=== PATIENT | female | born 1955 | race Caucasian/White ===

== ENCOUNTER 2020-02-08 17:22 | Outpatient (REF) | payer MEDICARE, MEDICAID, SELFPAY ==
--- NOTE | 2020-02-08 | MM_ITS ---
EXAMINATION: MM SCREENING DIGITAL BREAST TOMOSYNTHESIS, BILATERAL CLINICAL INFORMATION: Screening. Asymptomatic. The lifetime risk of breast cancer based on the Tyrer-Cuzick Model is 4.2%. COMPARISON: Mammography: December 24, 2018 and studies dating back to December 04, 2014 TECHNIQUE: Digital breast tomosynthesis is performed in both the craniocaudal and mediolateral oblique views along with computer-aided detection (CAD). Synthesized 2D images are generated from the tomosynthesis. FINDINGS: The breasts are heterogeneously dense, which may obscure small masses (ACR BI-RADS breast composition Category c). There are no significant masses, abnormal calcifications, or other abnormalities. MM/MM tomosynthesis screening BI IMPRESSION: There are no significant changes from prior study. ASSESSMENT: BI-RADS 1: Negative RECOMMENDATION: Routine annual mammography screening. This patient's information was entered into a reminder system with a target due date for their next mammogram.
== END 2020-02-08 17:23 | disposition home or self-care (01) ==
LOC: HO.MAMMO 17:22
PROVIDERS: PCP Nurse Practitioner Family; Visit Provider Internal Medicine
DX: Z12.31 Encounter for screening mammogram for malignant neoplasm of breast (principal)
CPT/HCPCS: 77063; 77067

== ENCOUNTER 2020-06-14 12:11 | Outpatient (REF) | payer MEDICARE, MEDICAID, SELFPAY ==
[2020-06-14 14:18] LABS: MANUAL DIFF FLAG NO
[2020-06-14 14:28] LABS: Basophils Absolute Auto 0.1 X10*3/uL (0.0-0.2); Eosinophils Absolute Auto 0.2 X10*3/uL (0.0-0.4); Eosinophils Percent Auto 1.8 % (0-4); Hematocrit 48.3 % (37-47); Hemoglobin 15.2 g/dl (12.0-16.0); Imm Gran Abs Auto 0.03 X10*3/uL (0.00-0.03); Imm Gran Pct Auto 0.3 % (0.0-0.4); Lymphocytes Percent Auto 39.7 % (20-40); Mean Corpuscular HGB Conc 31.5 g/dl (31.0-35.0); Mean Corpuscular Hemoglobin 27.4 pg (27.0-33.0); Mean Platelet Volume 11.4 fL (9.4-12.3); Monocytes Absolute Auto 0.8 X10*3/uL (0.1-1.2); Monocytes Percent Auto 7.5 % (2-11); Neutrophils Percent Auto 49.7 % (45-73); Platelet Count 287 X10*3/uL (160-400); Red Blood Count 5.55 X10*6/uL (4.20-5.50); Red Cell Distribution Width 13.4 % (11.0-16.0); White Blood Count 10.1 X10*3/uL (4.8-10.8)
[2020-06-14 14:57] LABS: Alanine Aminotransferase 49 U/L (0-31); Albumin Level 4.8 g/dL (3.5-5.0); Alkaline Phosphatase 81 U/L (39-117); Anion Gap 14 (12-20); Aspartate Amino Transferase 30 U/L (5-31); Bilirubin Total 0.6 mg/dL (0.0-1.0); Blood Urea Nitrogen 15 mg/dL (9-16); Calcium 10.2 mg/dL (8.4-10.2); Carbon Dioxide 30 mmol/L (22-29); Chloride 106 mmol/L (96-108); Estimated Glomerular Filt Rate 57; Glucose Random 109 mg/dL (60-115); Potassium 4.7 mmol/L (3.3-5.1); Sodium 145 mmol/L (135-145); Total Protein 7.7 g/dL (6.5-8.0)
== END 2020-06-14 12:12 | disposition home or self-care (01) ==
LOC: HO.LAB 12:11
PROVIDERS: PCP Nurse Practitioner Family; Visit Provider Nurse Practitioner
DX: I10 Essential (primary) hypertension (principal); E78.00 Pure hypercholesterolemia, unspecified; Z12.11 Encounter for screening for malignant neoplasm of colon; Z83.71 Family history of colonic polyps
CPT/HCPCS: 36415; 80053; 85025; Q3014

== ENCOUNTER 2020-06-19 08:14 | Outpatient (REF) | payer MEDICARE, MEDICAID, SELFPAY ==
[2020-06-19 08:57] LABS: MANUAL DIFF FLAG NO
[2020-06-19 09:01] LABS: Basophils Absolute Auto 0.1 X10*3/uL (0.0-0.2); Basophils Percent Auto 0.9 % (0-2); Eosinophils Absolute Auto 0.2 X10*3/uL (0.0-0.4); Hematocrit 45.8 % (37-47); Hemoglobin 14.4 g/dl (12.0-16.0); Imm Gran Abs Auto 0.02 X10*3/uL (0.00-0.03); Imm Gran Pct Auto 0.3 % (0.0-0.4); Lymphocytes Absolute Auto 2.8 X10*3/uL (1.2-4.9); Mean Corpuscular HGB Conc 31.4 g/dl (31.0-35.0); Mean Corpuscular Hemoglobin 27.5 pg (27.0-33.0); Mean Corpuscular Volume 87.4 fL (80-98); Mean Platelet Volume 11.3 fL (9.4-12.3); Monocytes Absolute Auto 0.5 X10*3/uL (0.1-1.2); Monocytes Percent Auto 6.5 % (2-11); Neutrophils Percent Auto 53.3 % (45-73); Platelet Count 268 X10*3/uL (160-400); Red Blood Count 5.24 X10*6/uL (4.20-5.50); Red Cell Distribution Width 13.4 % (11.0-16.0); White Blood Count 7.5 X10*3/uL (4.8-10.8)
[2020-06-19 09:29] LABS: Alanine Aminotransferase 41 U/L (0-31); Albumin Level 4.5 g/dL (3.5-5.0); Alkaline Phosphatase 72 U/L (39-117); Anion Gap 11 (12-20); Aspartate Amino Transferase 27 U/L (5-31); Bilirubin Total 0.7 mg/dL (0.0-1.0); Blood Urea Nitrogen 10 mg/dL (9-16); Calcium 9.7 mg/dL (8.4-10.2); Carbon Dioxide 30 mmol/L (22-29); Chloride 107 mmol/L (96-108); Cholesterol 161 mg/dL; Estimated Glomerular Filt Rate > 60; Glucose Fasting 114 mg/dL (60-99); HDL Cholesterol 50 mg/dL; LDL Cholesterol Calculated 90 mg/dl; Potassium 4.7 mmol/L (3.3-5.1); Sodium 143 mmol/L (135-145); Triglycerides 109 mg/dL
[2020-06-19 09:51] LABS: TSH reflex Free T4 0.61 uIU/mL (0.32-4.0)
== END 2020-06-19 08:15 | disposition home or self-care (01) ==
LOC: HO.LAB 08:14
PROVIDERS: PCP Nurse Practitioner Family; Visit Provider Nurse Practitioner Family
DX: J45.41 Moderate persistent asthma with (acute) exacerbation (principal)
CPT/HCPCS: 36415; 80053; 80061; 84443; 85025

== ENCOUNTER 2020-08-27 08:01 | Day surgery (SDC) | payer MEDICARE, MEDICAID, SELFPAY ==
[2020-08-21 15:39] VITALS: BMI 26.6
--- NOTE | 2020-08-23 12:24 | HO.ANESPROP2 ---
Documented by User: Mary Anne Kebede 08/23/20 12:24 HPI - Anesthesia Eval Consult details Narrative: 65yo F for Colonoscopy [facility] Active Problems Active Problems: All Active Problems (Updated 08/21/20 @ 15:32 by Nupur Reeves) Colon cancer screening (Acute) Family history of polyps in the colon (Acute) High cholesterol (Acute) Hypertension (Acute) Asthma (Acute) Past Medical History Medical History (Updated 08/21/20 @ 15:32 by Nupur Reeves) Asthma High cholesterol Hypertension Family History Family History Father No problems noted. Mother Hypertension Stroke Maternal Grandmother No problems noted. Maternal Grandfather No problems noted. Paternal Grandmother Diabetes Paternal Grandfather No problems noted. Paternal Aunt Cancer Other History of total abdominal hysterectomy and bilateral salpingo-oophorectomy Surgical History Surgical History (Updated 06/14/20 @ 12:23 by ABBY Urbina) History of total abdominal hysterectomy and bilateral salpingo-oophorectomy Hx of colonoscopy Social History Social History (Updated 06/14/20 @ 12:24 by ABBY Urbina) Household Members: None Alcohol intake: current Alcohol intake frequency: holidays/special occasions only Smoking Status: Never smoker Use of substances other than those prescribed or required for medical reasons: Yes Substance Use Type: Marijuana Substance Use Frequency: Daily Advance Directives Information Provided: No Current occupational status: disabled Meds Allergies Allergy/AdvReac Type Severity Reaction Status Date / Time No Known Allergies Allergy Verified 03/12/20 06:36 [No Known Allergies*] Exam Exam Date and Time: August 23, 2020 1224 Height,Weight and Vital Signs: Height 5 ft 5 in Weight 72.575 kg Assessment and Plan Assessment Anesthesia Assessment: Chart Reviewed Documented by User: Lisa Ryan 08/27/20 10:00 [facility] Past Medical History Medical History (Updated 08/21/20 @ 15:32 by Nupur Reeves) Asthma High cholesterol Hypertension Family History Family History Father No problems noted. Mother Hypertension Stroke Maternal Grandmother No problems noted. Maternal Grandfather No problems noted. Paternal Grandmother Diabetes Paternal Grandfather No problems noted. Paternal Aunt Cancer Other History of total abdominal hysterectomy and bilateral salpingo-oophorectomy Surgical History Surgical History (Updated 06/14/20 @ 12:23 by ABBY Urbina) History of total abdominal hysterectomy and bilateral salpingo-oophorectomy Hx of colonoscopy Social History Social History (Updated 06/14/20 @ 12:24 by ABBY Urbina) Household Members: None Alcohol intake: current Alcohol intake frequency: holidays/special occasions only Smoking Status: Never smoker Use of substances other than those prescribed or required for medical reasons: Yes Substance Use Type: Marijuana Substance Use Frequency: Daily Advance Directives Information Provided: No Current occupational status: disabled Meds Allergies Allergy/AdvReac Type Severity Reaction Status Date / Time No Known Allergies Allergy Verified 03/12/20 06:36 [No Known Allergies*] Exam Airway Mallampati Class: II TM Dist: >3cm Neck ROM: Full Heart: RrR Lungs: CTA Assessment and Plan Assessment Anesthesia Assessment: Anesthesia Plan Discussed and Chart Reviewed Final Anesthetic Review NPO: Yes ASA Class: II Final Preanesthetic Review: No Changes in Pt Med Stat and Consent Obtained/Reviewed Patient Risk: Intermediate Procedure Risk: Intermediate Anesthetic Plan Anesthetic Plan: MAC: Disposition: Standard PACU
--- NOTE | 2020-08-27 09:13 | MHC.SHP ---
Pre-Procedural Eval Section B Chief Complaint: Screening Details of Present Illness: fh of polyps Relevant Family History (Specify if Yes): Yes Relevant Social History: Other (specify) (THC use) Present Medications: see Short Stay Collaborative assessment Medical History: Significant History (Asthma High cholesterol Hypertension) History of Previous Operations: Relevant previous surgery/procedure and date(s) (History of total abdominal hysterectomy and bilateral salpingo-oophorectomy Hx of colonoscopy) Allergies: Allergies Allergy/AdvReac Type Severity Reaction Status Date / Time No Known Allergies Allergy Verified 03/12/20 06:36 [No Known Allergies*] Review of Systems Sugical H&P ROS: Negative: Constitution, Cardiovascular, Respiratory, Neurological, Psychiatric, Hem-Onc, Allergic/Immunologic, Gastrointestinal, Genitourinary, Musculoskeletal, Integumentary, Endocrine and Eyes/Ears/Nose/Throat Exam Surgical H&P Exam: Normal: HEENT, Normal: Heart, Normal: Lungs, Normal: Extremities, Normal: Abdomen, Normal: Skin and Normal: Neurological Plan Diagnosis/Plan: Unchanged I have reviewed the history and physical and performed a pertinent physical examination on my patient. No changes have occurred unless specified.
[2020-08-27 09:30] VITALS: BP 144/82; PULSE 81; RESP 18; TEMP 36.2; O2SAT 97
[2020-08-27] MEDS: Lactated Ringers 1,000 ML 100 ML IVCONT (09:49)
--- NOTE | 2020-08-27 10:05 | P.OP_ITS ---
Operative Note Operative Note Date of Service: 08/27/20 Narrative: Operative Information Procedure Description: Colonoscopy COLONOSCOPY Instrument: Olympus variable stiffness pediatric scope 190L Colonoscopy Monitoring: Vital signs and clinical assessment, continuous EKG monitoring, Pulse oximetry, Carbon Dioxide monitoring and blood pressure monitoring were done throughout the procedure. Colon withdrawal time was 13 minutes. Procedure: The patient was placed in the left lateral decubitis position and pre-procedure medications were administered. After a digital rectal examination of the ano-rectum, the video colonoscope was inserted into the rectum and advanced through the colon to the cecum/TI. The colonoscope was slowly withdrawn in a retrograde panoramic fashion and the colon mucosa was carefully examined including a retroflexed view of the rectum. Findings and interventions are described below. Procedure Difficulty: moderate, pressure applied it get into cecum Findings: Terminal Ileum-normal Cecum: 10 mm sessile polyp removed with cold snare, some residual tissue removed with forceps Ascending Colon: normal Transverse Colon - 10 mm sessile polyp removed with cold snare Descending Colon:normal Sigmoid Colon: moderate diverticulosis, with mucosal hypertrophy and thickening, 10 mm sessile polyp removed with cold snare Rectum: Retroflexion with small internal hemorrhoids, grade I, 10 mm flat polypoid lesion removed with cold snare Anorectum - normal Colon preparation: [place] Bowel Preparation Scale Right colon; 2 Transverse colon: 2 Left colon; 2 (0 = Unprepared colon segment with mucosa not seen due to solid stool that cannot be cleared. 1 = Portion of mucosa of the colon segment seen, but other areas of the colon segment not well seen due to staining, residual stool and/or opaque liquid. 2 = Minor amount of residual staining, small fragments of stool and/or opaque liquid, but mucosa of colon segment seen well. 3 = Entire mucosa of colon segment seen well with no residual staining, small fragments of stool or opaque liquid) Impression and Post Procedure Diagnosis: polyps internal hemorrhoids diverticular disease Plan: High fiber diet leaflet Avoid straining at stool, epsom salts and sitz bath, anusol supps or cream as n eeded Repeat Colonoscopy in 3-5 years or earlier if clinically indicated Above findings were reviewed with the patient and relevant handouts were provided if indicated.
--- NOTE | 2020-08-27 10:05 | P.BOP_ITS ---
Brief Operative Note Date of Service: 08/27/20 Pre-op diagnosis: colon screening Post-op diagnosis: same Procedure: see op note Surgeon: Harleen Anderson MD Anesthesia: MAC Was an Finishing Machine Operator Automatic used for this Procedure?: No Estimated blood loss (mL): 0 Condition: stable Disposition: PACU
[2020-08-27 10:30] VITALS: BP 123/78; PULSE 78; RESP 16; TEMP 36.7; O2SAT 98
[2020-08-27 10:45] VITALS: BP 125/68; PULSE 71; RESP 16; TEMP 36.7; O2SAT 99
== END 2020-08-27 11:03 | disposition home or self-care (01) ==
PROVIDERS: PCP Nurse Practitioner Family; Visit Provider Internal Medicine Gastroenterology
PROC: 0DJD8ZZ Inspection of Lower Intestinal Tract, Via Natural or Artificial Opening Endoscopic (ICD-10-PCS; CPT 45378; principal; 2020-08-27 10:10)
DX: Z12.11 Encounter for screening for malignant neoplasm of colon (principal); D12.0 Benign neoplasm of cecum; D12.3 Benign neoplasm of transverse colon; K63.5 Polyp of colon; K62.1 Rectal polyp; K57.30 Diverticulosis of large intestine without perforation or abscess without bleeding; K64.0 First degree hemorrhoids; I10 Essential (primary) hypertension; J45.909 Unspecified asthma, uncomplicated
CPT/HCPCS: 45385; 45380; 88305

== ENCOUNTER → 2020-09-24 12:46 | Outpatient (BNVA) | payer MEDICARE, MEDICAID, SELFPAY | PROVIDERS: PCP Internal Medicine; Visit Provider Nurse Practitioner | DX: D12.6 Benign neoplasm of colon, unspecified (principal); Z12.11 Encounter for screening for malignant neoplasm of colon; Z83.71 Family history of colonic polyps | CPT/HCPCS: 99212 ==

== ENCOUNTER 2021-01-14 14:27 | Outpatient (REF) | payer MEDICARE, MEDICAID, SELFPAY ==
--- NOTE | ~2021-01-14 | XR_ITS ---
EXAMINATION: XR KNEE, RIGHT CLINICAL INFORMATION: Right knee pain. COMPARISON: None TECHNIQUE: Four views of the right knee. FINDINGS: No fracture or dislocation. No significant joint space narrowing. Tiny lateral and patellofemoral compartment marginal osteophytes. No osseous erosion. No abnormal soft tissue calcification. No significant joint effusion. XR/XR knee RT 4V IMPRESSION: Minimal lateral and patellofemoral compartment arthrosis.
== END 2021-01-14 14:28 | disposition home or self-care (01) ==
LOC: HO.XRAY 14:27
PROVIDERS: PCP Internal Medicine; Visit Provider Nurse Practitioner Family
DX: M25.561 Pain in right knee (principal)
CPT/HCPCS: 73564

== ENCOUNTER 2021-02-11 13:57 | Outpatient (REF) | payer MEDICARE, MEDICAID, SELFPAY ==
--- NOTE | ~2021-02-11 | MM_ITS ---
EXAMINATION: MM SCREENING DIGITAL BREAST TOMOSYNTHESIS, BILATERAL CLINICAL INFORMATION: Screening. Asymptomatic. The lifetime risk of breast cancer based on the Tyrer-Cuzick Model is 7%. COMPARISON: Mammography: 02/08/2020, 12/24/2018, 12/03/2017 TECHNIQUE: Digital breast tomosynthesis is performed in both the craniocaudal and mediolateral oblique views along with computer-aided detection (CAD). Synthesized 2D images are generated from the tomosynthesis. FINDINGS: The breasts are heterogeneously dense, which may obscure small masses (ACR BI-RADS breast composition Category c). There are no significant masses, abnormal calcifications, or other abnormalities. Parenchymal pattern is similar to prior exams. No developing density. No significant changes. MM/MM tomosynthesis screening BI IMPRESSION: No mammographic evidence of malignancy. ASSESSMENT: BI-RADS 1: Negative RECOMMENDATION: Routine annual mammography screening. This patient's information was entered into a reminder system with a target due date for their next mammogram.
== END 2021-02-11 13:58 | disposition home or self-care (01) ==
LOC: HO.MAMMO 13:57
PROVIDERS: Visit Provider Internal Medicine
DX: Z12.31 Encounter for screening mammogram for malignant neoplasm of breast (principal)
CPT/HCPCS: 77063; 77067

== ENCOUNTER 2021-03-19 09:01 | Outpatient (REF) | payer MEDICARE, MEDICAID, SELFPAY ==
[2021-03-19 10:25] LABS: Alanine Aminotransferase 17 U/L (0-31); Albumin Level 4.2 g/dL (3.5-5.0); Alkaline Phosphatase 72 U/L (39-117); Anion Gap 12 (12-20); Aspartate Amino Transferase 17 U/L (5-31); Bilirubin Total 0.5 mg/dL (0.0-1.0); Blood Urea Nitrogen 10 mg/dL (9-16); Calcium 9.6 mg/dL (8.4-10.2); Carbon Dioxide 27 mmol/L (22-29); Chloride 108 mmol/L (96-108); Cholesterol 154 mg/dL; Estimated Glomerular Filt Rate > 60; Glucose Fasting 104 mg/dL (60-99); HDL Cholesterol 47 mg/dL; LDL Cholesterol Calculated 88 mg/dl; Potassium 4.1 mmol/L (3.3-5.1); Sodium 143 mmol/L (135-145); Total Protein 6.7 g/dL (6.5-8.0); Triglycerides 95 mg/dL
== END 2021-03-19 09:02 | disposition home or self-care (01) ==
LOC: HO.LAB 09:01
PROVIDERS: Visit Provider Internal Medicine
DX: I10 Essential (primary) hypertension (principal); E78.5 Hyperlipidemia, unspecified
CPT/HCPCS: 36415; 80053; 80061

== ENCOUNTER 2021-04-10 14:00 | Outpatient (RCR) | payer MEDICARE, OTHER, MEDICAID, SELFPAY | END 2021-04-11 15:35 | disposition home or self-care (01) | LOC: HO.PTCHIC 14:00 | PROVIDERS: PCP Internal Medicine; Visit Provider Nurse Practitioner Family | DX: M17.11 Unilateral primary osteoarthritis, right knee (principal) | CPT/HCPCS: 97110; 97140; 97150; 97162 ==

== ENCOUNTER 2021-12-17 16:18 | Outpatient (REF) | payer OTHER, SELFPAY ==
--- NOTE | ~2021-12-17 | CT_ITS ---
EXAMINATION: CT HEAD WITHOUT CONTRAST CLINICAL INFORMATION: Syncope and collapse COMPARISON: None TECHNIQUE: Contiguous axial imaging was performed from the skull base to vertex without intravenous administration of contrast. This CT examination was performed using dose optimization techniques as appropriate, variously including the following: *Automated exposure control *Adjustment of mA and/or kV according to patient size (this includes techniques or standardized protocols for targeted exams where dose is matched to indication/reason for exam; i.e. extremities or head) *Use of iterative reconstruction technique DLP: 746 mGy-cm FINDINGS: There is no evidence of an extra-axial collection. There is no evidence of intra-axial or extra-axial hemorrhage. The ventricles and extra-axial CSF spaces are appropriate. Kelly-white matter differentiation is normal. No mass, mass effect or infarct is seen. Review of bone windows is normal. No skull fracture is seen. There is a large polyp or cyst in the right maxillary sinus. There may be membranous soft tissue thickening in the left maxillary and sphenoid sinus as well. Visualized paranasal sinuses, mastoid air cells and middle ears are otherwise clear. CT/CT head/brain wo IV con IMPRESSION: No acute findings. Mild sinus disease.
== END 2021-12-17 16:19 | disposition home or self-care (01) ==
LOC: HO.CT 16:18
PROVIDERS: PCP Internal Medicine; Visit Provider Internal Medicine
DX: R55 Syncope and collapse (principal)
CPT/HCPCS: 70450

== ENCOUNTER 2021-12-21 07:46 | Outpatient (REF) | payer OTHER, SELFPAY ==
[2021-12-21 08:33] LABS: MANUAL DIFF FLAG NO
[2021-12-21 08:48] LABS: Basophils Absolute Auto 0.1 X10*3/uL (0.0-0.2); Basophils Percent Auto 1.2 % (0-2); Eosinophils Absolute Auto 0.1 X10*3/uL (0.0-0.4); Eosinophils Percent Auto 1.9 % (0-4); Hematocrit 41.6 % (37.0-47.0); Hemoglobin 12.8 g/dl (12.0-16.0); Imm Gran Abs Auto 0.02 X10*3/uL (0.00-0.03); Imm Gran Pct Auto 0.3 % (0.0-0.4); Lymphocytes Absolute Auto 2.8 X10*3/uL (1.2-4.9); Lymphocytes Percent Auto 40.6 % (20-40); Mean Corpuscular HGB Conc 30.8 g/dl (31.0-35.0); Mean Corpuscular Volume 84.6 fL (80.0-98.0); Mean Platelet Volume 11.3 fL (9.4-12.3); Monocytes Absolute Auto 0.5 X10*3/uL (0.1-1.2); Monocytes Percent Auto 7.5 % (2-11); Neutrophils Absolute Auto 3.3 x10*3/uL (2.0-8.3); Neutrophils Percent Auto 48.5 % (45-73); Platelet Count 265 X10*3/uL (160-400); Red Blood Count 4.92 X10*6/uL (4.20-5.50); Red Cell Distribution Width 13.7 % (11.0-16.0); White Blood Count 6.8 X10*3/uL (4.8-10.8)
[2021-12-21 09:20] LABS: Alanine Aminotransferase 18 U/L (0-31); Albumin Level 4.2 g/dL (3.5-5.0); Alkaline Phosphatase 81 U/L (39-117); Anion Gap 14 (12-20); Aspartate Amino Transferase 19 U/L (5-31); Bilirubin Total 0.2 mg/dL (0.0-1.0); Blood Urea Nitrogen 15 mg/dL (9-16); Carbon Dioxide 29 mmol/L (22-29); Chloride 106 mmol/L (96-108); Cholesterol 187 mg/dL; Estimated Glomerular Filt Rate > 60; Glucose Fasting 103 mg/dL (60-99); HDL Cholesterol 58 mg/dL; LDL Cholesterol Calculated 110 mg/dl; Potassium 4.7 mmol/L (3.3-5.1); Sodium 144 mmol/L (135-145); Triglycerides 96 mg/dL
[2021-12-21 09:42] LABS: Thyroid Stimulating Hormone 0.96 uIU/mL (0.32-4.0)
== END 2021-12-21 07:47 | disposition home or self-care (01) ==
LOC: HO.LAB 07:46
PROVIDERS: PCP Internal Medicine; Visit Provider Internal Medicine
DX: R73.02 Impaired glucose tolerance (oral) (principal); L65.9 Nonscarring hair loss, unspecified; J45.41 Moderate persistent asthma with (acute) exacerbation; E78.5 Hyperlipidemia, unspecified
CPT/HCPCS: 36415; 80053; 80061; 84443; 85025

== ENCOUNTER → 2021-12-24 15:12 | Outpatient (REF) | payer OTHER, SELFPAY ==
--- NOTE | 2021-12-24 15:17 | ECG_ITS ---
Test Reason : SYNCOPE AND COLLAPSE Blood Pressure : / mmHG Vent. Rate : 075 BPM Atrial Rate : 075 BPM P-R Int : 164 ms QRS Dur : 068 ms QT Int : 360 ms P-R-T Axes : 001 071 056 degrees QTc Int : 402 ms Normal sinus rhythm Normal ECG No previous ECGs available Referred By: Renetta Argueta Electronically Signed By:OLIVA SCOTT
== END ==
LOC: HO.CARD 15:12
PROVIDERS: PCP Internal Medicine; Visit Provider Internal Medicine
DX: R55 Syncope and collapse (principal)
CPT/HCPCS: 93005

== ENCOUNTER → 2021-12-31 15:28 | Outpatient (REF) | payer OTHER, SELFPAY ==
--- NOTE | 2021-12-31 15:31 | CA_ITS ---
Transthoracic Echocardiogram Patient (Last, First, Middle): Lulu Goncalves, Gender: Female Date of : 1955 Age: 66 Procedure Date: 12/31/2021 Procedure Type: Transthoracic Echocardiogram Location: OP Height: 165.1 cm Weight: 63.5 kg BSA: 1.70 m2 Heart Rate: bpm BP: 132 / 64 mmHg Bungy Jump Master: CASPER Referring MD: Renetta Argueta MD Symptoms: R55 - Syncope and collapse Study Quality: Adequate ECG Rhythm: Sinus Conclusions: - The left ventricular systolic function is normal. The calculated ejection fraction is 62% by biplane method. - No obvious valvular pathology seen on this study. Findings Left Ventricle Normal left ventricular cavity size. There is normal left ventricular wall thickness. The left ventricular systolic function is normal. The calculated ejection fraction is 62% by biplane method. There is no evidence of regional wall motion abnormalities. Diastolic function is normal for age. Right Ventricle Normal right ventricular cavity size and systolic function. Atria Both atria are normal in size. Aortic Valve There is a normal trileaflet aortic valve. There is no aortic valve stenosis. There is no aortic valve regurgitation. Mitral Valve The mitral valve appears normal. There is no mitral valve regurgitation. There is no mitral valve stenosis. Pulmonic Valve The pulmonic valve is likely normal. Tricuspid Valve Normal tricuspid valve structure. There is trace tricuspid valve regurgitation. There is no evidence of pulmonary hypertension. Great Vessels The asc aorta is normal in size. Venous The inferior vena cava is normal in size and collapses greater than 50% with inspiration. Pericardium/Pleural There is no evidence of pericardial effusion. Prior Study Comparison No prior study available for comparison. Recommendations, Care & Conclusions No obvious valvular pathology seen on this study. Measurements 2D Linear Measurements IVSd: 0.92 0.6-0.9/0.6-1.0 cm LVIDd: 3.81 3.9-5.3/4.2-5.9 cm LVIDd Index: 2.24 2.4-3.2/2.2-3.1 cm/m2 LVIDs: 2.58 2.0-3.6 cm LVPWd: 0.73 0.7-1.1 cm LA Diam: 3.30 2.7-3.8/3.0-4.0 cm LAIDs Index: 1.94 1.5-2.3 cm/m2 LV Mass: 112.23 67-162/88-224 g LV Mass Index: 66.02 43-95/49-115 g/m2 LVOT Diam: 1.90 3.0+(-)1.3 cm 2D Systolic Function EF 4C: 61.50 >55% EF 2C: 62.50 >55% EF BiP: 62.40 >55% Mitral Valve MV Pk E: 0.93 MV PK A: 0.88 MV Decel Time: 245.00 E/A: 1.10 E'Lateral: 10.40 E'Medial: 7.62 E/E' Med: 12.30 E/E' Lat: 9.00 PHT: 72.00 MVA PHT: 3.06 Decel [place]: 3.81 Aortic Valve AoV Pk Victor Manuel: 1.52 AoV Mn Victor Manuel: 1.06 AoV VTI: 0.39 AoV Pk Grad: 9.00 Aov Mn Grad: 5.00 NED Cont.VTI: 2.14 LVOT LVOT Pk Victor Manuel: 1.24 LVOT Mn Victor Manuel: 0.70 LVOT VTI: 0.30 LVOT Pk Grad: 6.00 LVOT Mn Grad: 3.00 LVOT Diam: 1.90 LVOT Area: 2.84 Diastolic Function MV Pk E: 0.93 MV Pk A: 0.88 E/A: 1.10 E'Medial: 7.62 E/E' Med: 12.30 E' Laterial: 10.40 E/E' Lat: 9.00 Right Ventricle TAPSE (mm): 20.30 TVS' Victor Manuel: 11.50 Tricuspid Valve TR Pk Victor Manuel: 1.93 TR Pk Grad: 15.00 RA Press: 3.00 RVSP: 18.00 Great Vessels Aorta Sinus of Valsalva: 2.79 2.0-3.[address] [place]: 2.33 1.7-3.4 cm Ao Asc: 2.50 2.1-3.4 cm Updated in Other Vendor System with Status of Final Jef Magana MD electronically signed on 01/01/2022 8:34:23 AM with status of Final
== END ==
LOC: HO.CARD 15:28
PROVIDERS: PCP Internal Medicine; Visit Provider Internal Medicine
DX: R55 Syncope and collapse (principal)
CPT/HCPCS: 93306

== ENCOUNTER 2022-02-11 15:13 | Outpatient (REF) | payer OTHER, SELFPAY ==
--- NOTE | ~2022-02-11 | US_ITS ---
EXAMINATION: US EXTRACRANIAL CAROTID DUPLEX, BILATERAL CLINICAL INFORMATION: Syncope COMPARISON: None TECHNIQUE: Real-time ultrasound and Doppler techniques (integrating B-mode 2-D vascular images, Doppler spectral analysis and color-flow Doppler imaging) were utilized to interrogate the extracranial carotid arteries, the vertebral arteries and proximal subclavian arteries bilaterally. The degree of stenosis is determined by criteria similar to NASCET. FINDINGS: Right Side: 1. There is minimal atherosclerotic plaque seen in the bifurcation/proximal ICA region. 2. The common carotid artery PSV proximally is 95.1 cm/s and distally 100 cm/s. 3. The proximal internal carotid artery velocities are 87.6 cm/s systolic and 21.7 cm/s diastolic. 4. The proximal external carotid artery PSV is 119 cm/s. 5. The vertebral artery shows antegrade flow. 6. The subclavian artery waveforms are normal. Left Side: 1. There is minimal atherosclerotic plaque seen in the bifurcation/proximal ICA region. 2. The common carotid artery PSV proximally is 143 cm/s and distally 101 cm/s. 3. The proximal internal carotid artery velocities are 86.7 cm/s systolic and 32.9 cm/s diastolic. 4. The proximal external carotid artery PSV is 109 cm/s. 5. The vertebral artery shows antegrade flow. 6. The subclavian artery waveforms are normal. US/US carotid duplex BI IMPRESSION: 1. RIGHT: Minimal, non-hemodynamically significant stenosis of the proximal right internal carotid artery corresponding to a 0-49% stenosis by velocity criteria. 2. LEFT: Minimal, non-hemodynamically significant stenosis of the proximal left internal carotid artery corresponding to a 0-49% stenosis by velocity criteria.
== END 2022-02-11 15:14 | disposition home or self-care (01) ==
LOC: HO.US 15:13
PROVIDERS: PCP Internal Medicine; Visit Provider Internal Medicine
DX: R55 Syncope and collapse (principal)
CPT/HCPCS: 93880

== ENCOUNTER 2022-02-13 15:12 | Outpatient (REF) | payer OTHER, SELFPAY ==
--- NOTE | ~2022-02-13 | MM_ITS ---
EXAMINATION: MM SCREENING DIGITAL BREAST TOMOSYNTHESIS, BILATERAL CLINICAL INFORMATION: Screening. Asymptomatic. COMPARISON: Mammography: February 11, 2021 and studies dating back to October 18, 2015 TECHNIQUE: Digital breast tomosynthesis is performed in both the craniocaudal and mediolateral oblique views along with computer-aided detection (CAD). Synthesized 2D images are generated from the tomosynthesis. FINDINGS: The breasts are heterogeneously dense, which may obscure small masses (ACR BI-RADS breast composition Category c). There are no new significant masses, abnormal calcifications, or other abnormalities. MM/MM tomosynthesis screening BI IMPRESSION: No significant changes from prior exam. ASSESSMENT: BI-RADS 1: Negative RECOMMENDATION: Routine annual mammography screening. This patient's information was entered into a reminder system with a target due date for their next mammogram.
== END 2022-02-13 15:13 | disposition home or self-care (01) ==
LOC: HO.MAMMO 15:12
PROVIDERS: PCP Internal Medicine; Visit Provider Internal Medicine
DX: Z12.31 Encounter for screening mammogram for malignant neoplasm of breast (principal)
CPT/HCPCS: 77063; 77067

== ENCOUNTER 2022-09-28 10:02 | Emergency (ER) | payer OTHER, SELFPAY ==
--- NOTE | ~2022-09-28 | XR_ITS ---
EXAMINATION: XR SHOULDER, LEFT CLINICAL INFORMATION: Left shoulder pain. COMPARISON: None available. TECHNIQUE: AP, Grashey, and scapular Y views of the left shoulder. FINDINGS: No acute fracture or subluxation. Mild chronic humeral joint space narrowing with small marginal osteophytes. Moderate acromioclavicular joint space narrowing with marginal osteophytes. Sclerotic focus within the inferior aspect of the glenoid measuring up to 1.4 cm which may represent a bone island. No lytic osseous lesion. No abnormal soft tissue calcification. XR/XR shoulder LT min 2V IMPRESSION: 1. Moderate acromioclavicular and mild glenohumeral osteoarthritis. 2. Sclerotic focus within the inferior aspect of the glenoid which may represent a bone island.
[2022-09-28 10:18] VITALS: BP 150/79; PULSE 106; RESP 14; TEMP 36.8; O2SAT 97; BMI 25.0
[2022-09-28 12:04] VITALS: BP 143/72; PULSE 58; RESP 16; TEMP 36.2; O2SAT 99
--- NOTE | 2022-09-28 12:10 | ED.EXTPRO ---
HPI - Extremity Problem General Chief complaint: Extremity Problem Stated complaint: shoulder pain Time Seen by Provider: 09/28/22 10:45 History of Present Illness HPI Narrative: patient complains of left shoulder pain which has been going on for months and gradually worsening, there is no injury, pain sometimes radiates down her arm, there is no neck pain, there is no numbness or weakness no fevers no chest pain no shortness of breath, pain is worse with movement Related Data Previous Rx's Medication Instructions Recorded diclofenac sodium 1 % topical gel 2 g topical QID #100 grams 01/14/21 (Voltaren Arthritis Pain) Grab bar #1 ea 11/26/21 hydroquinone 4 % topical cream 1 appl topical DAILY 30 days 12/18/21 #28.35 grams ibuprofen 800 mg tablet 800 mg PO BID #180 tabs 02/22/22 polymyxin B sulfate 10,000 1 drp ophthalmic (eye) QID 5 days 03/01/22 unit-trimethoprim 1 mg/mL eye drops #10 mL albuterol sulfate 90 mcg/actuation 2 puff inhalation Q6H PRN 05/26/22 aerosol inhaler (Ventolin HFA) shortness of breath or wheezing 30 days #6.7 grams enalapril maleate 5 mg tablet 5 mg PO DAILY #90 tabs 05/26/22 gabapentin 100 mg capsule 100 mg PO BEDTIME 90 days #90 caps 05/26/22 simvastatin 20 mg tablet 20 mg PO BEDTIME #90 tabs 05/26/22 albuterol sulfate 90 mcg/actuation 1 inh inhalation QID 30 days #6.7 09/22/22 aerosol inhaler grams diclofenac sodium 1 % topical gel 2 g topical QID #100 grams 09/28/22 Allergies Allergy/AdvReac Type Severity Reaction Status Date / Time No Known Allergies Allergy Verified 03/20/22 16:38 [No Known Allergies*] [facility] Past Medical History Source: nursing notes reviewed Medical History Asthma High cholesterol Hypertension Impaired glucose tolerance Rhinitis Skin lesion Surgical History History of total abdominal hysterectomy and bilateral salpingo-oophorectomy Hx of colonoscopy Family History Family History Father No problems noted. Mother Hypertension Stroke Maternal Grandmother No problems noted. Maternal Grandfather No problems noted. Paternal Grandmother Diabetes Paternal Grandfather No problems noted. Paternal Aunt Cancer Other History of total abdominal hysterectomy and bilateral salpingo-oophorectomy Social History Social History Household Members: None Housing: Other Housing Other:: Basement Alcohol intake: current Alcohol intake frequency: holidays/special occasions only Alcohol type: beer Patient Tobacco Use Status: Former Tobacco user Tobacco use type: Cigarette e-Cigarette/Vaping Use: Never Used Second Hand Smoke Exposure: No Substance Use Type: Marijuana Advance Directives: No Advance Directives Information Provided: Yes service: No Current occupational status: disabled Cognitive needs: No Hearing needs: No Vision needs: Yes Physical Exam Vital Signs: Vital Signs: Last Vital Signs Temp 98.3 F 09/28/22 10:18 Pulse 106 H 09/28/22 10:18 Resp 14 09/28/22 10:18 BP 150/79 H 09/28/22 10:18 Pulse Ox 97 09/28/22 10:18 O2 Del Method Room Air 09/28/22 10:18 BMI result Body Mass Index 25.0 general appearance no distress Head is normocephalic atraumatic Neck as a full range of motion with no tenderness in the neck or trapezius The chest is clear to auscultation no chest wall tenderness Extremities the left shoulder has limited extension, limited external rotation and limited abduction as it is uncomfortable, she is able to do these movements but not fully and it causes discomfort The skin of the shoulder and the arm is normal there is no swelling no redness no wounds, it is neurovascular intact distal Other extremities normal Course Course Course Narrative: left shoulder x-ray showed moderate acromioclavicular and glenohumeral osteoarthritis, there was a sclerotic focus in the glenoid which may represent a bone island The patient is advised to follow closely with orthopedist, no evidence of septic joint or infection and well-appearing patient is discharged Discharge Plan Discharge Clinical Impression: Localized osteoarthritis of left shoulder Patient Disposition: Home, Self-Care Additional Instructions: x-ray did show arthritis in the left shoulder, so best plan is follow with orthopedist with number provided Orthopedist can often do a specialist injection and other treatments Apply diclofenac gel which may help with inflammation and discomfort Return any time any worse condition or any concerns Prescriptions: New diclofenac sodium 1 % gel 2 g topical QID Qty: 100 0RF Rx Instructions: apply to painful area of shoulder No Action hydroquinone 4 % cream 1 appl topical DAILY 30 Days Qty: 28.35 0RF ibuprofen 800 mg tablet 800 mg PO BID Qty: 180 0RF albuterol sulfate [Ventolin HFA] 90 mcg/actuation HFA aerosol inhaler 2 puff inhalation Q6H PRN (Reason: shortness of breath or wheezing) 30 Days Qty: 6.7 1RF enalapril maleate 5 mg tablet 5 mg PO DAILY Qty: 90 0RF gabapentin 100 mg capsule 100 mg PO BEDTIME 90 Days Qty: 90 1RF simvastatin 20 mg tablet 20 mg PO BEDTIME Qty: 90 0RF albuterol sulfate 90 mcg/actuation HFA aerosol inhaler 1 inh inhalation QID 30 Days Qty: 6.7 1RF diclofenac sodium [Voltaren Arthritis Pain] 1 % gel 2 g topical QID Qty: 100 0RF (DME) Grab bar Misc See Rx Instructions .Route Qty: 1 0RF Rx Instructions: As directed polymyxin B sulf-trimethoprim 10,000 unit- 1 mg/mL drops 1 drp ophthalmic (eye) QID 5 Days Qty: 10 0RF Referrals: Ladarius Shoemaker MD [Physician] - ( left shoulder osteoarthritis and bone island)
== END 2022-09-28 12:24 | disposition home or self-care (01) ==
PROVIDERS: Emergency Provider Emergency Medicine; PCP Internal Medicine
DX: M19.012 Primary osteoarthritis, left shoulder (principal); Z87.891 Personal history of nicotine dependence; Z79.899 Other long term (current) drug therapy
CPT/HCPCS: 73030; 99284

== ENCOUNTER 2023-01-29 15:48 | Emergency (ER) | payer OTHER, SELFPAY ==
[2023-01-29 16:16] VITALS: BP 173/77; PULSE 71; RESP 16; TEMP 36.6; O2SAT 99; BMI 26.0
--- NOTE | 2023-01-29 16:20 | ED.GENADULT ---
HPI - General Adult General Chief complaint: General Medical Stated complaint: lump on throat Time Seen by Provider: 01/29/23 16:26 Source: patient Mode of arrival: ambulatory Limitations: no limitations History of Present Illness HPI narrative: 67 yo female with history of depression/anxiety, HTN, HLD, asthma who presents to the ER for evaluation of left sided throat redness and white spots on the tonsils that started yesterday. She reports pus in the tonsils and some difficulty swallowing but no pain. No fever, chills, N/V/D. She has had some minor nasal congestion. No known sick contacts. MD complaint: throat redness Onset (ago): day(s) (1) Location: mouth Radiation: non-radiation Severity: mild Relieving factors: none Exacerbating factors: none Associated symptoms: denies other symptoms Treatments prior to arrival: none Related Data Previous Rx's Medication Instructions Recorded diclofenac sodium 1 % topical gel 2 g topical QID #100 grams 01/14/21 (Voltaren Arthritis Pain) Grab bar #1 ea 11/26/21 hydroquinone 4 % topical cream 1 appl topical DAILY 30 days 12/18/21 #28.35 grams ibuprofen 800 mg tablet 800 mg PO BID #180 tabs 02/22/22 polymyxin B sulfate 10,000 1 drp ophthalmic (eye) QID 5 days 03/01/22 unit-trimethoprim 1 mg/mL eye drops #10 mL albuterol sulfate 90 mcg/actuation 2 puff inhalation Q6H PRN 05/26/22 aerosol inhaler (Ventolin HFA) shortness of breath or wheezing 30 days #6.7 grams gabapentin 100 mg capsule 100 mg PO BEDTIME 90 days #90 caps 05/26/22 albuterol sulfate 90 mcg/actuation 1 inh inhalation QID 30 days #6.7 09/22/22 aerosol inhaler grams diclofenac sodium 1 % topical gel 2 g topical QID #100 grams 09/28/22 enalapril maleate 5 mg tablet 5 mg PO DAILY #90 tabs 01/05/23 simvastatin 20 mg tablet 20 mg PO BEDTIME #90 tabs 01/05/23 Allergies Allergy/AdvReac Type Severity Reaction Status Date / Time No Known Allergies Allergy Verified 01/29/23 15:54 [No Known Allergies*] Review of Systems Review of Systems: Yes all other systems are reviewed and are negative PMFSH Past Medical History Medical History Asthma High cholesterol Hypertension Impaired glucose tolerance Rhinitis Skin lesion Surgical History History of total abdominal hysterectomy and bilateral salpingo-oophorectomy Hx of colonoscopy Family History Family History Father No problems noted. Mother Hypertension Stroke Maternal Grandmother No problems noted. Maternal Grandfather No problems noted. Paternal Grandmother Diabetes Paternal Grandfather No problems noted. Paternal Aunt Cancer Other History of total abdominal hysterectomy and bilateral salpingo-oophorectomy Social History Social History Household Members: None Housing: Other Housing Other:: Basement Alcohol intake: current Alcohol intake frequency: does not drink Alcohol type: beer Patient Tobacco Use Status: Former Tobacco user Tobacco use type: Cigarette e-Cigarette/Vaping Use: Never Used Second Hand Smoke Exposure: No Substance Use Type: Marijuana Advance Directives: No Advance Directives Information Provided: No service: No Current occupational status: disabled Cognitive needs: No Hearing needs: No Vision needs: Yes Physical Exam ED Vital Signs: Vital Signs - 24 hr 01/29/23 16:16 Temperature 97.8 F Pulse Rate 71 Respiratory Rate 16 Blood Pressure 173/77 H Pulse Oximetry 99 Oxygen Delivery Method Room Air BMI result Body Mass Index 26.0 Appearance: Alert. Oriented X3. No acute distress. HEENT: normal external inspection. tonsils are not enlarged or erythematous, tonsil stone present on the right side. uvula midline. normal voice and handling secretions normally. CVS: Normal heart rate and rhythm. Pulses normal. Respiratory: No respiratory distress. Skin: Skin warm and dry. Normal skin color. Normal skin turgor. No rashes. Extremities: normal inspection x4, no joint swelling Neuro: Oriented X 3. No motor deficit. No sensory deficit. Course Course Course Narrative: RME- 67 year old female presents for evaluation of a sore throat with swelling mostly to the left tonsillar region. Airway widely patent. Plan for rapid strep. Medical Decision Making Medical Decision Making [facility] Narrative: 67 yo female presenting for evaluation of white balls on her tonsils since yesterday. exam c/w tonsil stones. tonsils ortherwise no swollen or erythematous. no evidence of tonsillitis. strep negative. tonsil stone extracted w/ sterile q-tip. staff radiation therapist used to discuss dx and treatment. stable for d/c home Differential Diagnosis Differential Diagnoses: The differential diagnosis associated with the presentation includes tonsil stones, strep pharyngitis, viral pharyngitis, no evidence of peritonsillar abscess or retropharyngeal abscess Lab Data [facility] Lab Attestation statement: I reviewed the patient's lab results. Labs: Lab Results 01/29/23 Range/Units 16:58 S. pyogenes GrpA ANGIE Negative (Negative) External Record Review External record reviewed: Prior outpatient labs Prescription Management I considered prescription management with: Antibiotic Critical Care Time Critical Care Time Critical Care Time: No Discharge Plan Discharge Clinical Impression: Tonsil stone Pharyngitis Qualifiers: Pharyngitis/tonsillitis etiology: unspecified etiology Qualified Code(s): J02.9 - Acute pharyngitis, unspecified Patient Disposition: Home, Self-Care Instructions: Pharyngitis (ED) Additional Instructions: You tested negative for strep throat today. You do not need antibiotics. The white ball on the tonsil is called a tonsil stone which is a collection of debris and material suck inside the tonsil. They are not an infection. Recommend warm salt water gargles 3 times per day Make sure you are drinking plenty of fluids. Take motrin and tylenol as needed for pain Follow up with your doctor. If you develop new or worsening symptoms call 911 or come back to the ER for further evaluation. Hoy diste negativo en la prueba de faringitis estreptoc?cica. No necesitas antibi?ticos. La britt bernadine en la am?gdala se llama c?lculo de am?gdala y es arnol colecci?n de desechos y material absorbido dentro de la am?gdala. No son arnol infecci?n. Se recomienda hacer g?rgaras con agua tibia y reggie 3 veces al d?a. Aseg?rese de beber muchos l?quidos. [place] motrin y tylenol seg?n sea necesario para el dolor. Ana Maria un seguimiento con cuba m?dico. Si desarrolla s?ntomas nuevos o que empeoran, llame al 911 o regrese a la eli de emergencias para arnol evaluaci?n adicional. Prescriptions: No Action hydroquinone 4 % cream 1 appl topical DAILY 30 Days Qty: 28.35 0RF ibuprofen 800 mg tablet 800 mg PO BID Qty: 180 0RF albuterol sulfate [Ventolin HFA] 90 mcg/actuation HFA aerosol inhaler 2 puff inhalation Q6H PRN (Reason: shortness of breath or wheezing) 30 Days Qty: 6.7 1RF gabapentin 100 mg capsule 100 mg PO BEDTIME 90 Days Qty: 90 1RF albuterol sulfate 90 mcg/actuation HFA aerosol inhaler 1 inh inhalation QID 30 Days Qty: 6.7 1RF simvastatin 20 mg tablet 20 mg PO BEDTIME Qty: 90 1RF enalapril maleate 5 mg tablet 5 mg PO DAILY Qty: 90 1RF diclofenac sodium 1 % gel 2 g topical QID Qty: 100 0RF Rx Instructions: apply to painful area of shoulder diclofenac sodium [Voltaren Arthritis Pain] 1 % gel 2 g topical QID Qty: 100 0RF (DME) Grab bar Misc See Rx Instructions .Route Qty: 1 0RF Rx Instructions: As directed polymyxin B sulf-trimethoprim 10,000 unit- 1 mg/mL drops 1 drp ophthalmic (eye) QID 5 Days Qty: 10 0RF Referrals: Renetta Sutherland MD [Primary Care Provider] - Interventions: ED Discharge Assessment Last Done: 01/29/23 18:00 Discharge Date/Time: 01/29/23 18:00 Print Language: Nepali
[2023-01-29 17:23] LABS: IDNOW Serial# 08D9AD1C; Strep A Nucleic Acid Negative (Negative)
== END 2023-01-29 18:00 | disposition home or self-care (01) ==
PROVIDERS: Physician Assistant; Emergency Provider Emergency Medicine; PCP Internal Medicine
DX: J35.8 Other chronic diseases of tonsils and adenoids (principal); Z87.891 Personal history of nicotine dependence; Z79.899 Other long term (current) drug therapy
CPT/HCPCS: 87651; 99282; 99283

== ENCOUNTER 2023-02-03 15:21 | Outpatient (AMB) | payer OTHER, SELFPAY ==
[2023-02-03 15:28] VITALS: BP 140/82; PULSE 77; O2SAT 100; BMI 25.8
--- NOTE | 2023-02-03 15:28 | A.OFFPC_ITS ---
Vital Signs 02/03/23 15:28 Height 5 ft 5 in Weight 155 lb BMI 25.8 BP 140/82 H Blood Pressure Location Lt brachial Position Sitting Pulse 77 Pulse Source Pulse Oximeter Pulse Oximetry (%) 100 Oxygen Delivery Method Room Air Intake Visit Reasons: Pain/burn in abdomen/food getting stuck in throat Intake Note: pt states ER visit due to lump in throat with pain, pt states no relief Senior Clinical Study Manager Required: Yes Senior Clinical Study Manager Language: Lithuanian Allergies No Known Allergies [No Known Allergies*] Allergy (Verified 02/03/23 15:51) Medication List - Last Reconciled 02/03/23 by CHEYENNE Clark albuterol sulfate 90 mcg/actuation (Ventolin HFA) 2 puffs inhalation Q6H PRN 30 days albuterol sulfate 90 mcg/actuation 1 inh inhalation QID 30 days diclofenac sodium 1% 2 grams topical QID diclofenac sodium 1% (Voltaren Arthritis Pain) 2 grams topical QID enalapril maleate 5 mg PO DAILY gabapentin 100 mg PO BEDTIME 90 days Grab bar As directed hydroquinone 4% 1 appl topical DAILY 30 days polymyxin B sulf-trimethoprim 10,000 unit- 1 mg/mL 1 drp ophthalmic (eye) QID 5 days simvastatin 20 mg PO BEDTIME Tobacco use date assessed: 02/03/23 Fall risk assessment: No Falls in past year Last assessed Fall Risk: 02/03/23 HPI Pain/burn in abdomen/food getting stuck in throat HPI Details Patient is a 67-year-old female who presents today with burning abdominal pain, acid reflux for the past [address] [place]. Patient reports that sometimes food gets stuck in her throat as well. No difficulty swallowing solids or liquids. She did not use anything for her symptoms. Reports went to the emergency department couple days ago for sore throat, strep test was negative, patient reports white spots on the right tonsil intermittent for many years now. No shortness of breath or chest pain. Patient is a [place]-speaking and Nando was helping with interpretation. [facility] Medical History Skin lesion Rhinitis Impaired glucose tolerance High cholesterol Hypertension Asthma Surgical History Hx of colonoscopy History of total abdominal hysterectomy and bilateral salpingo-oophorectomy Family History Father No problems noted. Mother Hypertension Stroke Maternal Grandmother No problems noted. Maternal Grandfather No problems noted. Paternal Grandmother Diabetes Paternal Grandfather No problems noted. Paternal Aunt Cancer Other History of total abdominal hysterectomy and bilateral salpingo- oophorectomy Social History Household Members: None Housing: Other Housing Other:: Basement Alcohol intake: current Alcohol intake frequency: does not drink Alcohol type: beer Patient Tobacco Use Status: Former Tobacco user Tobacco use type: Cigarette e-Cigarette/Vaping Use: Never Used Second Hand Smoke Exposure: No Substance Use Type: Marijuana service: No Current occupational status: disabled Cognitive needs: No Hearing needs: No Vision needs: Yes Questionnaire Thrive Questionnaire Date Thrive assessed: 10/29/21 AUDIT C Alcohol Use Questionnaire (AUDIT-C) 1. How often do you have a drink containing alcohol?: Monthly or less 2. How many drinks containing alcohol do you have on a typical day when you are drinking?: 1 or 2 3. How often do you have six or more drinks on one occasion?: Never Total Score: 1 Score Reviewed/Action Taken: No DANIEL-7 AMB Questionnaire DANIEL-7 Date DANIEL - 7 assessed: 10/29/21 Source: Developed by Drs. Michel Garcia, Deysi Gerard, Torito Mireles and colleagues, with an educational malia from [employer]. Review of Systems Const Denies body aches, Denies chills, Denies fever(s) and Denies headache(s) ENT Reports as per HPI, Denies dizziness, Denies otalgia, Denies headache(s), Denies nasal discharge, Denies sinus pain and Denies sore throat Card Denies chest pain, Denies edema, Denies lightheadedness and Denies dyspnea Resp Denies cough, Denies dyspnea and Denies wheezing GI Reports abdominal pain, Denies constipation, Reports heartburn, Denies diarrhea, Denies nausea and Denies vomiting Denies dysuria Musc Denies myalgias Skin/Breast Denies rash Neuro Denies dizziness and Denies headache(s) Aller/Immun Denies wheezing Physical exam (Primary Care) Vital Signs: Last Vital Signs Pulse 77 02/03/23 15:28 BP 140/82 H 02/03/23 15:28 Pulse Ox 100 02/03/23 15:28 Oxygen Delivery Method Room Air 02/03/23 15:28 BMI result Body Mass Index 25.8 Tobacco/Smoking Status: Tobacco use Status Tobacco use date assessed 02/03/23 02/03/23 15:29 Patient Tobacco Use Status Former Tobacco user 02/03/23 15:29 Tobacco use type Cigarette 02/03/23 15:29 e-Cigarette/Vaping Use Never Used 02/03/23 15:29 Thrive Assessment: Date of Thrive Assessment Date Thrive assessed 10/29/21 02/03/23 15:29 Const General: cooperative and no acute distress Orientation/consciousness: patient oriented x3 HENMT Other: Right tonsil with small white spot No OP erythema Head: Yes normocephalic and Yes atraumatic Eyes General: appearance normal, both eyes and all related structures Neck Neck: Yes normal visual inspection and Yes full ROM Resp Effort & Inspection: normal respiratory effort and able to speak in complete sentences Auscultation: clear to auscultation bilaterally, no crackles, no rales, no rhonchi and no wheezes Cardio Rate: regular rate Rhythm: regular rhythm Heart sounds: S1 normal heart sound present and S2 normal heart sound present GI Palpation (GI): Soft to palpation, not firm, nontender, no guarding, not rigid and no hepatosplenomegaly Auscultation: normal bowel sounds Skin General skin exam: no rashes or lesions noted Neuro General: patient oriented x3 Gait exam (Neuro): Normal gait present Extrem General: Yes full ROM Assessment and Plan Assessment & Plan (1) Tonsil stone: Code(s): J35.8 - Other chronic diseases of tonsils and adenoids Plan: Right tonsil with small white spot Suspect tonsillar stone, ENT referral Encouraged salt water gargles p.r.n. Patient denies significant sore throat currently (2) GERD (gastroesophageal reflux disease): Code(s): K21.9 - Gastro-esophageal reflux disease without esophagitis Plan: Start omeprazole 20 mg daily Avoid GERD trigger foods Do not lay down 2-3 hours after evening meal Follow-up with PCP in 2 months or sooner as needed Orders: Referrals Ear/Nose/Throat Referral J35.8 - Other chronic diseases of tonsils and adenoids Medications: New omeprazole 20 mg PO DAILY 60 caps 0RF K21.9 - Gastro-esophageal reflux disease without esophagitis Coding Level of Care Code Est Pt Level 3 (47125) Diagnoses Tonsil stone J35.8 GERD (gastroesophageal reflux disease) K21.9
== END 2023-02-03 16:05 | disposition home or self-care (01) ==
PROVIDERS: PCP Internal Medicine; Visit Provider Nurse Practitioner Family
DX: J35.8 Other chronic diseases of tonsils and adenoids (principal); K21.9 Gastro-esophageal reflux disease without esophagitis
CPT/HCPCS: 99213

== ENCOUNTER 2023-02-24 14:49 | Outpatient (REF) | payer OTHER, SELFPAY ==
--- NOTE | ~2023-02-24 | MM_ITS ---
EXAMINATION: MM SCREENING DIGITAL BREAST TOMOSYNTHESIS, BILATERAL CLINICAL INFORMATION: Screening. Asymptomatic. COMPARISON: Mammography: 02/13/2022, 02/11/2021, and studies dating back to October 18, 2015 TECHNIQUE: Digital breast tomosynthesis is performed in both the craniocaudal and mediolateral oblique views along with computer-aided detection (CAD). Synthesized 2D images are generated from the tomosynthesis. FINDINGS: The breasts are heterogeneously dense, which may obscure small masses (ACR BI-RADS breast composition Category c). There are a few scattered benign type calcifications in both breasts. These are benign. There is a stable small parenchymal asymmetry in the inferior right breast, unchanged and benign. There are no suspicious masses, suspicious grouped calcifications, or areas of architectural distortion in either breast. The parenchymal pattern is stable from prior exams. MM/MM tomosynthesis screening BI IMPRESSION: No significant changes from prior exam. No findings suspicious for malignancy. Recommend continuing routine screening. ASSESSMENT: BI-RADS BI-RADS 2 - Benign Findings RECOMMENDATION: Routine annual mammography screening. 1 year F/U This examination should not preclude the clinical evaluation of a suspicious palpable abnormality. This patient's information was entered into a reminder system with a target due date for their next mammogram.
== END 2023-02-24 14:50 | disposition home or self-care (01) ==
LOC: HO.MAMMO 14:49
PROVIDERS: PCP Internal Medicine; Visit Provider Internal Medicine
DX: Z12.31 Encounter for screening mammogram for malignant neoplasm of breast (principal)
CPT/HCPCS: 77063; 77067

== ENCOUNTER → 2023-02-24 15:45 | Outpatient (BNV) | payer OTHER, SELFPAY | PROVIDERS: PCP Internal Medicine; Visit Provider Radiology Diagnostic Radiology | DX: Z12.31 Encounter for screening mammogram for malignant neoplasm of breast (principal) | CPT/HCPCS: 77063; 77067 ==

== ENCOUNTER 2023-03-31 07:21 | Outpatient (REF) | payer OTHER, SELFPAY ==
[2023-03-31 08:45] LABS: Alanine Aminotransferase 17 U/L (0-31); Albumin Level 4.1 g/dL (3.5-5.0); Alkaline Phosphatase 69 U/L (39-117); Anion Gap 11 (12-20); Aspartate Amino Transferase 19 U/L (5-31); Bilirubin Total 0.3 mg/dL (0.0-1.0); Blood Urea Nitrogen 24 mg/dL (9-16); Calcium 9.9 mg/dL (8.4-10.2); Carbon Dioxide 29 mmol/L (22-29); Chloride 107 mmol/L (96-108); Cholesterol 180 mg/dL (<200); Estimated Glomerular Filt Rate > 60; Glucose Fasting 102 mg/dL (60-99); HDL Cholesterol 49 mg/dL (>40); LDL Cholesterol Calculated 110 mg/dL (<100); Potassium 4.4 mmol/L (3.3-5.1); Sodium 143 mmol/L (135-145); Total Protein 6.9 g/dL (6.5-8.0); Triglycerides 106 mg/dL (<150)
[2023-03-31 09:03] LABS: Thyroid Stimulating Hormone 1.18 uIU/mL (0.32-4.0)
== END 2023-03-31 07:22 | disposition home or self-care (01) ==
LOC: HO.LAB 07:21
PROVIDERS: PCP Internal Medicine; Visit Provider Internal Medicine
DX: E78.5 Hyperlipidemia, unspecified (principal); E78.00 Pure hypercholesterolemia, unspecified; L65.9 Nonscarring hair loss, unspecified
CPT/HCPCS: 36415; 80053; 80061; 84443

== ENCOUNTER 2023-04-09 12:57 | Outpatient (AMB) | payer OTHER, SELFPAY ==
--- NOTE | 2023-04-09 13:11 | MHC.PC.OV ---
Vital Signs 04/09/23 13:13 Height 5 ft 5 in Weight 154 lb 4 oz BMI 25.7 BP 122/62 Blood Pressure Location Lt brachial Position Sitting Pulse 85 Pulse Source Pulse Oximeter Pulse Oximetry (%) 96 Oxygen Delivery Method Room Air Intake Visit Reasons: headaches Intake Note: Patient is here today for headaches for over a month. Complaint of numbness in both little toes of the foot and dryness of the right foot. Braid Folder Required: Yes Braid Folder Language: Edging Machine Setter Name: Raiza ([id number]) Information Interpreted: non-clinical & clinical Assisted Living Manager: Not Required per policy Accompanied by: Self / Same As Patient Allergies No Known Allergies [No Known Allergies*] Allergy (Verified 04/12/23 09:48) Medication List - Last Reconciled 04/12/23 by Kirk Ceja MD albuterol sulfate 90 mcg/actuation 1 inh inhalation QID 30 days albuterol sulfate 90 mcg/actuation (Ventolin HFA) 2 puffs inhalation Q6H PRN 30 days enalapril maleate 5 mg PO DAILY gabapentin 100 mg PO BEDTIME 90 days Grab bar As directed hydrocortisone 2.5% 1 appl topical BID PRN polymyxin B sulf-trimethoprim 10,000 unit- 1 mg/mL 1 drp ophthalmic (eye) QID 5 days simvastatin 20 mg PO BEDTIME sumatriptan succinate 25 mg PO Q2-4H PRN 30 days underpads (Bed Underpads) Use 1 pad once a day Tobacco use date assessed: 04/09/23 Fall risk assessment: No Falls in past year Last assessed Fall Risk: 04/09/23 Dental Screening Dental Screen Date: 04/09/23 Did you have a dental visit in the last 12 months?: Yes Did you have a dental problem in the last 6 months where you did not have access to dental care?: No Was dental information given to patient?: Patient has dentist HPI headaches HPI Details 67-year-old female presents to the office for a follow-up visit. I am covering for her regular provider. Patient is reporting chronic neck and head pain. The pain and discomfort is in her neck area and radiating to both her arms. She has tried physical therapy in the past with minimal help. Both her upper extremities have discomfort and the symptoms are present every day. Able to function and do her activities of daily living. [facility] Medical History Skin lesion Rhinitis Impaired glucose tolerance High cholesterol Hypertension Asthma Surgical History Hx of colonoscopy History of total abdominal hysterectomy and bilateral salpingo-oophorectomy Family History Father No problems noted. Mother Hypertension Stroke Maternal Grandmother No problems noted. Maternal Grandfather No problems noted. Paternal Grandmother Diabetes Paternal Grandfather No problems noted. Paternal Aunt Cancer Other History of total abdominal hysterectomy and bilateral salpingo-oophorectomy Social History (Updated 04/09/23 @ 13:36 by ABBY Schwartz) Household Members: None Housing: Other Housing Other:: Basement Alcohol intake: current Alcohol intake frequency: holidays/special occasions only Alcohol type: beer Patient Tobacco Use Status: Former Tobacco user Tobacco use type: Cigarette e-Cigarette/Vaping Use: Never Used Second Hand Smoke Exposure: No Substance Use Type: Marijuana service: No Current occupational status: disabled Cognitive needs: No Hearing needs: No Vision needs: Yes Questionnaire PHQ-9 Over the last 2 weeks, how often have you been bothered by any of the following problems? 1. Little interest or pleasure in doing things: not at all 2. Feeling down, depressed, or hopeless: not at all 3. Trouble falling or staying asleep, or sleeping too much: not at all 4. Feeling tired or having little energy: not at all 5. Poor appetite or overeating: not at all 6. Feeling bad about yourself - or that you are a failure or have let yourself or your family down: not at all 7. Trouble concentrating on things, such as reading the newspaper or watching television: not at all 8. Moving or speaking so slowly that other people could have noticed. Or the opposite - being so fidgety or restless that you have been moving around a lot more than usual: not at all 9. Thoughts that you would be better off or of hurting yourself in some way: not at all Total score: 0 Depression Screening Interpretation: Negative Depression Screening Done: Yes Source: Developed by Drs. Michel Garcia, Deysi Gerard, Torito Mireles and colleagues, with an educational malia from [employer]. Thrive Questionnaire Date Thrive assessed: 04/09/23 I am a: Patient What is your living situation today?: I have a steady place to live Within the past 12 months, did the food you bought not last and you didn't have the money to get more?: Never true Within the past 12 months, did you worry whether your food would run out before you got money to buy more?: Never true Do you have trouble paying for medicines?: No Do you have trouble getting transportation to medical appointments?: No Do you have trouble paying your heating and electricity bill?: No Do you have trouble taking care of your child, family member or friend?: No Do you have trouble with day-to-day activities such as bathing, preparing meals, shopping, managing finances, etc.?: No Are you currently unemployed and looking for a job?: No Are you interested in more education?: No Currently or been in a relationship where the following occur: no concerns reported AUDIT C Alcohol Use Questionnaire (AUDIT-C) 1. How often do you have a drink containing alcohol?: Monthly or less Total Score: 1 DANIEL-7 AMB Questionnaire DANIEL-7 Date DANIEL - 7 assessed: 04/09/23 Feeling nervous, anxious, or on edge: 0 = Not at all Not being able to stop or control worryin = Not at all Worrying too much about different things: 0 = Not at all Trouble relaxin = Not at all Being so restless that it is hard to sit still: 0 = Not at all Becoming easily annoyed or irritable: 0 = Not at all Feeling afraid as if something awful might happen: 0 = Not at all Total DANIEL-7 score (0-4 normal; 5-9 mild; 10-14 moderate; 15-21 severe): 0 Source: Developed by Drs. Michel Garcia, Deysi Gerard, Torito Mireles and colleagues, with an educational malia from [employer]. Physical exam (Primary Care) Vital Signs: Last Vital Signs Pulse 85 04/09/23 13:13 BP 122/62 04/09/23 13:13 Pulse Ox 96 04/09/23 13:13 Oxygen Delivery Method Room Air 04/09/23 13:13 BMI result Body Mass Index 25.7 Tobacco/Smoking Status: Tobacco use Status Tobacco use date assessed 04/09/23 04/09/23 13:41 Patient Tobacco Use Status Former Tobacco user 04/09/23 13:41 Tobacco use type Cigarette 04/09/23 13:41 e-Cigarette/Vaping Use Never Used 04/09/23 13:41 PHQ-9: PHQ-9 Score PHQ-9: Total score 0 04/09/23 14:39 Depression Screening Interpretation: Negative Thrive Assessment: Date of Thrive Assessment Date Thrive assessed 04/09/23 04/09/23 13:41 Currently or been in a relationship where the following occur: no concerns reported Const General: cooperative and healthy appearing Nutritional Appearance: well nourished Orientation/consciousness: patient oriented x3 Limitations: no limitations HENMT Head: Yes normal to inspection Eyes General: appearance normal, both eyes and all related structures Neck Other: Minimal discomfirt in the trapezius muscles. Pain and discomfirt on side to side motion of the neck. Neck: Yes normal visual inspection Chest Chest palpation & inspection: normal palpation of entire chest wall Resp Effort & Inspection: normal respiratory effort Neuro General: patient oriented x3 Assessment and Plan Assessment & Plan (1) Acute neck sprain: Code(s): S13.9XXA - Sprain of joints and ligaments of unspecified parts of neck, initial encounter Plan: Etiology of her symptoms are multifactorial. Mental stress, anxiety, lack of exercise, not following a regimen suggested by PT are among these. Medications only cannot resolve these symptoms. Counselling done. Muscle relaxants ordered. Medications: New hydrocortisone 2.5% 1 appl topical BID PRN 20 grams 0RF skin irritation Coding Level of Care Code Est Pt Level 4 (09978) Diagnoses Acute neck sprain S13.9XXA
[2023-04-09 13:13] VITALS: BP 122/62; PULSE 85; O2SAT 96; BMI 25.7
== END 2023-04-09 14:24 | disposition home or self-care (01) ==
PROVIDERS: PCP Internal Medicine; Visit Provider Internal Medicine
DX: S13.9XXA Sprain of joints and ligaments of unspecified parts of neck, initial encounter (principal)
CPT/HCPCS: 99214

== ENCOUNTER 2023-05-11 16:07 | Outpatient (AMB) | payer OTHER, SELFPAY ==
[2023-05-11 16:10] VITALS: BP 122/80; BMI 25.8
--- NOTE | 2023-05-11 16:10 | A.OFFPC_ITS ---
Vital Signs 05/11/23 16:10 Height 5 ft 5 in Weight 155 lb BMI 25.8 BP 122/80 Blood Pressure Location Lt brachial Position Sitting Intake Visit Reasons: Gastroesophageal reflux disease (GERD) Intake Note: Patient here for a follow up GERD Manager Of Selection And Assessment Required: No Accompanied by: Self / Same As Patient Allergies No Known Allergies [No Known Allergies*] Allergy (Verified 05/11/23 16:40) Medication List - Last Reconciled 05/11/23 by Renetta Argueta MD albuterol sulfate 90 mcg/actuation 1 inh inhalation QID 30 days albuterol sulfate 90 mcg/actuation (Ventolin HFA) 2 puffs inhalation Q6H PRN 30 days cyclobenzaprine 10 mg PO BEDTIME enalapril maleate 5 mg PO DAILY gabapentin 100 mg PO BEDTIME 90 days Grab bar As directed hydrocortisone 2.5% 1 appl topical BID PRN polymyxin B sulf-trimethoprim 10,000 unit- 1 mg/mL 1 drp ophthalmic (eye) QID 5 days simvastatin 20 mg PO BEDTIME sumatriptan succinate 25 mg PO Q2-4H PRN 30 days underpads (Bed Underpads) Use 1 pad once a day Tobacco use date assessed: 04/09/23 Fall risk assessment: No Falls in past year Last assessed Fall Risk: 05/11/23 Dental Screening Dental Screen Date: 05/11/23 Did you have a dental visit in the last 12 months?: Yes Did you have a dental problem in the last 6 months where you did not have access to dental care?: No Was dental information given to patient?: Patient has dentist HPI HPI Comments History of Present Illness Details This is a 68-year-old female with GERD, hypertension, pure hypercholesterolemia and asthma that complains of neck pain that has been present for few weeks and she talked to the insurance and they insurance told her that they cover massage therapy. GERD stable with PPIs. Blood pressure well control. Last cholesterol was stable with statins and reports no side effects. She use rescue inhaler once a month. No chest pain or shortness of breath. [facility] Medical History (Updated 05/11/23 @ 16:46 by Renetta Argueta MD) Skin lesion Rhinitis Impaired glucose tolerance High cholesterol Hypertension Asthma Surgical History Hx of colonoscopy History of total abdominal hysterectomy and bilateral salpingo-oophorectomy Family History Father No problems noted. Mother Hypertension Stroke Maternal Grandmother No problems noted. Maternal Grandfather No problems noted. Paternal Grandmother Diabetes Paternal Grandfather No problems noted. Paternal Aunt Cancer Other History of total abdominal hysterectomy and bilateral salpingo- oophorectomy Social History Household Members: None Housing: Other Housing Other:: Basement Alcohol intake: current Alcohol intake frequency: holidays/special occasions only Alcohol type: beer Patient Tobacco Use Status: Former Tobacco user Tobacco use type: Cigarette e-Cigarette/Vaping Use: Never Used Second Hand Smoke Exposure: No Substance Use Type: Marijuana service: No Current occupational status: disabled Cognitive needs: No Hearing needs: No Vision needs: Yes Questionnaire Thrive Questionnaire Date Thrive assessed: 04/09/23 DANIEL-7 AMB Questionnaire DANIEL-7 Date DANIEL - 7 assessed: 04/09/23 Source: Developed by Drs. Michel Garcia, Deysi Gerard, Torito Mireles and colleagues, with an educational malia from [employer]. Review of Systems Const All systems reviewed & are unremarkable except as noted in HPI and below Eyes Reports no additional complaints, Denies change in vision and Denies other visual disturbances Card Denies chest pain at rest, Denies chest pain with activity, Denies edema, Denies irregular heart rhythm, Denies claudication, Denies dyspnea, Denies dyspnea on exertion, Denies orthopnea, Denies paroxysmal nocturnal dyspnea and Denies slow heart rate Resp Denies cough, Denies dyspnea and Denies dyspnea on exertion GI Denies abdominal pain, Denies change in bowel habits, Denies excessive flatus, Denies nausea and Denies vomiting Denies urinary incontinence, Denies urinary hesitancy and Denies urinary urgency Musc Denies abnormal gait, Denies atrophy, Denies deformity and Denies limited range of motion Skin/Breast Denies bleeding lesions, Denies changing lesions and Denies rash Neuro Denies abnormal gait, Denies behavioral changes and Denies lack of coordination Psych Denies behavioral changes Physical exam (Primary Care) Vital Signs: Last Vital Signs BP 122/80 05/11/23 16:10 BMI result Body Mass Index 25.8 Tobacco/Smoking Status: Tobacco use Status Tobacco use date assessed 04/09/23 05/11/23 16:18 Patient Tobacco Use Status Former Tobacco user 05/11/23 16:18 Tobacco use type Cigarette 05/11/23 16:18 e-Cigarette/Vaping Use Never Used 05/11/23 16:18 Thrive Assessment: Date of Thrive Assessment Date Thrive assessed 04/09/23 05/11/23 16:18 Eyes General: appearance normal, both eyes and all related structures Eyelids: Yes eyelids normal Conjunctivae: conjunctivae normal Neck Neck: Yes normal visual inspection and Yes supple Resp Effort & Inspection: normal respiratory effort Auscultation: clear to auscultation bilaterally Cardio Jugular venous distension: no JVD Rate: regular rate Rhythm: regular rhythm Heart sounds: S1 normal heart sound present and S2 normal heart sound present Extrem General: Yes full ROM Assessment and Plan Assessment & Plan (1) GERD (gastroesophageal reflux disease): Code(s): K21.9 - Gastro-esophageal reflux disease without esophagitis Plan: Continue PPIs. (2) Neck pain: Code(s): M54.2 - Cervicalgia Plan: Massage ordered through physical therapy, (3) Pure hypercholesterolemia: Code(s): E78.00 - Pure hypercholesterolemia, unspecified Plan: Continue statins. (4) Asthma: Code(s): J45.909 - Unspecified asthma, uncomplicated Qualifiers: Asthma severity: moderate Asthma persistence: persistent Asthma complication type: with acute exacerbation Qualified Code(s): J45.41 - Moderate persistent asthma with (acute) exacerbation Plan: Use rescue inhaler as needed. (5) Hypertension: Code(s): I10 - Essential (primary) hypertension Qualifiers: Hypertension type: essential hypertension Qualified Code(s): I10 - Essential (primary) hypertension Plan: Continue enalapril. Blood pressure goal is equal or less than 130/80. Orders: Orders PT Evaluation and Treatment Today M54.2 - Cervicalgia Medications: New incontinence pad, liner, disp As directed 120 ea 11RF N39.41 - Urge incontinence incontinence pad, liner, disp As directed 120 ea 11RF N39.41 - Urge incontinence Coding Level of Care Code Est Pt Level 4 (93056) Diagnoses GERD (gastroesophageal reflux disease) K21.9 Neck pain M54.2 Pure hypercholesterolemia E78.00 Moderate persistent asthma with acute exacerbation J45.41 Asthma severity: moderate Asthma persistence: persistent Asthma complication type: with acute exacerbation Essential hypertension I10 Hypertension type: essential hypertension Time Spent (min) 23
== END 2023-05-11 17:22 | disposition home or self-care (01) ==
PROVIDERS: PCP Internal Medicine; Visit Provider Internal Medicine
DX: K21.9 Gastro-esophageal reflux disease without esophagitis (principal); M54.2 Cervicalgia; E78.00 Pure hypercholesterolemia, unspecified; J45.41 Moderate persistent asthma with (acute) exacerbation; I10 Essential (primary) hypertension
CPT/HCPCS: 99214

== ENCOUNTER 2023-06-10 17:17 | Outpatient (AMB) | payer OTHER, SELFPAY ==
[2023-06-10 17:26] VITALS: BP 132/70; BMI 26.0
--- NOTE | 2023-06-10 17:26 | MHC.PC.OV ---
Vital Signs 06/10/23 17:26 Height 5 ft 5 in Weight 156 lb BMI 26.0 BP 132/70 Blood Pressure Location Lt brachial Position Sitting Intake Visit Reasons: Physical exam Intake Note: Patient here for a physical exam Vibration Analyst Required: No Accompanied by: Self / Same As Patient Allergies No Known Allergies [No Known Allergies*] Allergy (Verified 06/10/23 17:36) Medication List - Last Reconciled 06/10/23 by Renetta Argueta MD albuterol sulfate 90 mcg/actuation (Ventolin HFA) 2 puffs inhalation Q6H PRN 30 days cyclobenzaprine 10 mg PO BEDTIME enalapril maleate 5 mg PO DAILY gabapentin 100 mg PO BEDTIME 90 days Grab bar As directed hydrocortisone 2.5% 1 appl topical BID PRN incontinence pad, liner, disp As directed simvastatin 20 mg PO BEDTIME sumatriptan succinate 25 mg PO Q2-4H PRN 30 days underpads (Bed Underpads) Use 1 pad once a day Tobacco use date assessed: 04/09/23 Fall risk assessment: No Falls in past year Last assessed Fall Risk: 06/10/23 Dental Screening Dental Screen Date: 06/10/23 Did you have a dental visit in the last 12 months?: Yes Did you have a dental problem in the last 6 months where you did not have access to dental care?: No Was dental information given to patient?: Patient has dentist HPI HPI Comments History of Present Illness Details This is a 68-year-old female that comes for her physical exam. Last colonoscopy in 2020 that had to be repeated in 3-5 years and I refer her through open access. Complains of neck pain and was told by [facility] that she can apply for massage therapy. Physical therapy specified by massage therapy was order a month ago. Will be refer faxed to [facility]. Mammogram done January 2023. No need for Pap smear due to age and hysterectomy for benign reasons. [facility] Medical History Skin lesion Rhinitis Impaired glucose tolerance High cholesterol Hypertension Asthma Surgical History Hx of colonoscopy History of total abdominal hysterectomy and bilateral salpingo-oophorectomy Family History Father No problems noted. Mother Hypertension Stroke Maternal Grandmother No problems noted. Maternal Grandfather No problems noted. Paternal Grandmother Diabetes Paternal Grandfather No problems noted. Paternal Aunt Cancer Other History of total abdominal hysterectomy and bilateral salpingo-oophorectomy Social History Household Members: None Housing: Other Housing Other:: Basement Alcohol intake: current Alcohol intake frequency: holidays/special occasions only Alcohol type: beer Patient Tobacco Use Status: Former Tobacco user Tobacco use type: Cigarette e-Cigarette/Vaping Use: Never Used Second Hand Smoke Exposure: No Substance Use Type: Marijuana service: No Current occupational status: disabled Cognitive needs: No Hearing needs: No Vision needs: Yes Questionnaire PHQ-9 Over the last 2 weeks, how often have you been bothered by any of the following problems? 1. Little interest or pleasure in doing things: not at all 2. Feeling down, depressed, or hopeless: not at all 3. Trouble falling or staying asleep, or sleeping too much: not at all 4. Feeling tired or having little energy: not at all 5. Poor appetite or overeating: not at all 6. Feeling bad about yourself - or that you are a failure or have let yourself or your family down: not at all 7. Trouble concentrating on things, such as reading the newspaper or watching television: not at all 8. Moving or speaking so slowly that other people could have noticed. Or the opposite - being so fidgety or restless that you have been moving around a lot more than usual: not at all 9. Thoughts that you would be better off or of hurting yourself in some way: not at all Total score: 0 Depression Screening Interpretation: Negative Depression Screening Done: Yes 38712 - PHQ-9 Billing: Yes Source: Developed by Drs. Michel Garcia, Deysi Gerard, Torito Mireles and colleagues, with an educational malia from [employer]. Thrive Questionnaire Date Thrive assessed: 04/09/23 AUDIT C Alcohol Use Questionnaire (AUDIT-C) 1. How often do you have a drink containing alcohol?: Monthly or less 2. How many drinks containing alcohol do you have on a typical day when you are drinking?: 1 or 2 3. How often do you have six or more drinks on one occasion?: Never Total Score: 1 Score Reviewed/Action Taken: No DANIEL-7 AMB Questionnaire DANIEL-7 Date DANIEL - 7 assessed: 06/10/23 Feeling nervous, anxious, or on edge: 0 = Not at all Not being able to stop or control worryin = Not at all Worrying too much about different things: 0 = Not at all Trouble relaxin = Not at all Being so restless that it is hard to sit still: 0 = Not at all Becoming easily annoyed or irritable: 0 = Not at all Feeling afraid as if something awful might happen: 0 = Not at all Total DANIEL-7 score (0-4 normal; 5-9 mild; 10-14 moderate; 15-21 severe): 0 Source: Developed by Drs. Michel Garcia, Deysi Gerard, Torito Mireles and colleagues, with an educational malia from [employer]. DANIEL-7 Assessment Billing DANIEL-7 Assessment Tool: DANIEL-7 Assessment 12605 Review of Systems Const All systems reviewed & are unremarkable except as noted in HPI and below Eyes Reports no additional complaints, Denies change in vision and Denies other visual disturbances Card Denies chest pain at rest, Denies chest pain with activity, Denies edema, Denies irregular heart rhythm, Denies claudication, Denies dyspnea, Denies dyspnea on exertion, Denies orthopnea, Denies paroxysmal nocturnal dyspnea and Denies slow heart rate Resp Denies cough, Denies dyspnea and Denies dyspnea on exertion GI Denies abdominal pain, Denies change in bowel habits, Denies excessive flatus, Denies nausea and Denies vomiting Denies urinary incontinence, Denies urinary hesitancy and Denies urinary urgency Musc Denies abnormal gait, Denies atrophy, Denies deformity and Denies limited range of motion Skin/Breast Denies bleeding lesions, Denies changing lesions and Denies rash Neuro Denies abnormal gait, Denies behavioral changes, Denies confusion and Denies lack of coordination Psych Denies behavioral changes and Denies confusion Physical exam (Primary Care) Vital Signs: Last Vital Signs BP 132/70 06/10/23 17:26 BMI result Body Mass Index 26.0 Tobacco/Smoking Status: Tobacco use Status Tobacco use date assessed 04/09/23 06/10/23 17:31 Patient Tobacco Use Status Former Tobacco user 06/10/23 17:31 Tobacco use type Cigarette 06/10/23 17:31 e-Cigarette/Vaping Use Never Used 06/10/23 17:31 PHQ-9: PHQ-9 Score PHQ-9: Total score 0 06/10/23 17:31 Depression Screening Interpretation: Negative Thrive Assessment: Date of Thrive Assessment Date Thrive assessed 04/09/23 06/10/23 17:31 Const General: No confusion Orientation/consciousness: patient oriented x3 and No confusion HENMT Head: Yes normal to inspection, Yes normocephalic and Yes atraumatic Ears: external ears normal Eyes General: appearance normal, both eyes and all related structures Eyelids: Yes eyelids normal Conjunctivae: conjunctivae normal Neck Neck: Yes normal visual inspection and Yes supple Resp Effort & Inspection: normal respiratory effort Auscultation: clear to auscultation bilaterally Cardio Jugular venous distension: no JVD Rate: regular rate Rhythm: regular rhythm Heart sounds: S1 normal heart sound present and S2 normal heart sound present GI Inspection: Yes normal to inspection Palpation (GI): Soft to palpation and nontender Auscultation: normal bowel sounds Skin General skin exam: no rashes or lesions noted Neuro General: patient oriented x3, no focal motor deficits and No confusion Extrem General: Yes full ROM Psych Appearance: grossly normal Assessment and Plan Assessment & Plan (1) Physical exam: Code(s): Z00.00 - Encounter for general adult medical examination without abnormal findings Plan: Repeat in a year. Orders: Orders Comprehensive Met. Panel Today K21.9 - Gastro-esophageal reflux disease without esophagitis Lipid Panel Today E78.5 - Hyperlipidemia, unspecified Referrals Open Access Screening Colonoscopy Referral Z12.11 - Encounter for screening for malignant neoplasm of colon Medications: Changed From incontinence pad, liner, disp As directed 120 ea 11RF N39.41 - Urge incontinence To incontinence pad, liner, disp Use 1 pad 6 times a day 120 ea 11RF N39.41 - Urge incontinence Refilled underpads (Bed Underpads) Use 1 pad once a day 100 ea 3RF N39.41 - Urge incontinence Coding Level of Care Code Est Pt Prev Care >65y(60790) Diagnoses Physical exam Z00.00 Additional Codes DANIEL-7 Assessment Billing - DANIEL-7 Assessment Tool: DANIEL-7 Assessment 08716 ([id number]) Time Spent (min) 31
== END 2023-06-10 17:43 | disposition home or self-care (01) ==
LOC: HO.HMGH 17:17
PROVIDERS: PCP Internal Medicine; Visit Provider Internal Medicine
DX: Z00.00 Encounter for general adult medical examination without abnormal findings (principal)
CPT/HCPCS: 99397

== ENCOUNTER 2023-07-21 15:25 | Outpatient (AMB) | payer OTHER, SELFPAY ==
--- NOTE | 2023-07-21 15:31 | A.OFFVIS_ITS ---
Intake Vital Signs 07/21/23 15:33 Height 5 ft 5 in Weight 155 lb BMI 25.8 BP 121/58 L Blood Pressure Location Lt brachial Position Sitting Pulse 78 Intake Visit Reasons: Pre colonoscopy Intake Note: Patient follow up fro pre colonoscopy screening. Patient cc: acid reflex with burning sensation, swallowing problems with vomit, and constipation and she feeling anus moving ?? chest pain and some sharp abdominal pain on and off. Mental Health Counselor Required: Yes Mental Health Counselor Name: Cristina Ponce Accompanied by: Self / Same As Patient Allergies No Known Allergies [No Known Allergies*] Allergy (Verified 07/21/23 15:32) HPI Pre colonoscopy HPI Details Assessment & Plan (1) Family history of polyps in the colo n: Comment: SISTER, last scoped 2020 repeat 3-5 years Code(s): Z83.71 - Family history of colonic polyps Plan - SALINA Rodriguez-C: Kinyarwanda #[id number]. Gwen She tolerated the procedure well. I explain the findings and that she needs to repeat the scope in 3-5 years and always go no more than 5 years between scopes to prevent cancer. Education provided to inform any 1st degree relatives to have scope by age 45 as they may be at higher genetic risk. He had no problem with her bowels are returning to normal after the procedure no GI complaints. She does report she is having trouble with her right knee with a feeling of numbness on the outer portion and throbbing pain. I advised her that she should talk to her primary care provider about it and start with an x-ray to see if there is some arthritis setting in. If she can get to see her primary I recommend she go to a walk-in clinic as there well prepared to that we start her off with the basic examinations. She will be put a 5 year recall list. (2) Colon cancer screening: Comment: Tubular adenomas removed 08/2020 repeat 3-5 years Code(s): Z12.11 - Encounter for screening for malignant neoplasm of colon (3) Tubular adenoma of colon: Comment: 08/2020 scope repeat 3-5 years Code(s): D12.6 - Benign neoplasm of colon, unspecified LABS: Laboratory Tests 03/31/23 07:45 Estimated GFR > 60 Total Bilirubin 0.3 AST 19 ALT 17 Alkaline Phosphata se 69 TSH 1.18 TODAYS VISIT Kinyarwanda #[id number] I have not seen this patient since 2020 but they had a rather large tubular adenoma with a 3-5 year repeat She has hemorrhoids, and says that she has and odd sensation around her anus and is unsure if this is her hemorrhoids. she has had an increase in her GERD, and she is now taking a pill that sounds like omeprazole capsule, but she does not know the name, she takes it about 3 times a month. However, she has been having intermittent dysphagia that is so bad she will have to go to the BR and vomit it back up. The food seems to stick mid sternally. She is also having more trouble with constipation having to drink prune juice quite often but she feels that this is not sufficiently moving her bowels which might explain the increase in heartburn. I think will start her on a mild dose of senna and titrate to affect her side. Her asthma is well controlled and she denies any cardiac problems. There are no ID problems. She states she has had prior polyps, there is no known FHX of crc but there is a hx of polyps in her sister. Return office visit in 4 weeks to evaluate this senna and the hemorrhoid cream. I have also asked her to bring her acid reflux medication along so I can update her med list in know what she is taking. [facility] Medical History Skin lesion Rhinitis Impaired glucose tolerance High cholesterol Hypertension Asthma Surgical History Hx of colonoscopy History of total abdominal hysterectomy and bilateral salpingo-oophorectomy Family History Father No problems noted. Mother Hypertension Stroke Maternal Grandmother No problems noted. Maternal Grandfather No problems noted. Paternal Grandmother Diabetes Paternal Grandfather No problems noted. Paternal Aunt Cancer Other History of total abdominal hysterectomy and bilateral salpingo- oophorectomy Social History Household Members: None Housing: Other Housing Other:: Basement Alcohol intake: current Alcohol intake frequency: holidays/special occasions only Alcohol type: beer Patient Tobacco Use Status: Former Tobacco user Tobacco use type: Cigarette e-Cigarette/Vaping Use: Never Used Second Hand Smoke Exposure: No Substance Use Type: Marijuana service: No Current occupational status: disabled Cognitive needs: No Hearing needs: No Vision needs: Yes Review of Systems Const Denies fatigue, Denies fever(s), Denies night sweats, Denies poor appetite and Denies weight loss Eyes Details: glasses Reports requires corrective lenses ENT Reports Normal hearing present, Denies dental pain, Reports dysphagia, Denies hearing loss, Denies mouth pain, Denies odynophagia, Denies throat swelling, Denies tongue swelling and Reports other (Dentition adequate) Card Reports no additional complaints Resp Reports no additional complaints GI Details: Denies abdominal pain, Denies melena, Denies bloating, Denies hematochezia, Reports constipation, Denies GI cramping, Reports dysphagia, Denies excessive flatus, Denies early satiety, Reports heartburn, Denies diarrhea, Denies nausea, Denies odynophagia, Denies vomiting and Denies hematemesis Skin/Breast Denies pruritus, Denies lesions, Denies rash and Denies jaundice Neuro Reports Normal hearing present and Denies Abnormal speech present Endo Denies fatigue Aller/Immun Denies throat swelling and Denies tongue swelling Physical Exam Vital Signs: Last Vital Signs Pulse 78 07/21/23 15:33 BP 121/58 L 07/21/23 15:33 BMI result Body Mass Index 25.8 Const General: cooperative, no acute distress, well developed and well groomed Nutritional Appearance: average body habitus and well nourished Orientation/consciousness: oriented to person, oriented to place and oriented to time Limitations: language barrier HEENT Head: Yes normocephalic and Yes atraumatic Eyes General: appearance normal, both eyes and all related structures Pupils: Equal, round and reactive pupils present Neck Neck: Yes normal visual inspection and Yes no lymphadenopathy Thyroid: Thyroid normal Resp Effort & Inspection: normal respiratory effort and able to speak in complete sentences Auscultation: clear to auscultation bilaterally Cardio Rate: regular rate Rhythm: regular rhythm Heart sounds: Normal, physiologic split S2 sound present Peripheral pulses: radial pulses present and posterior tibial pulses present GI Inspection: No distended and No Abdominal panniculus present Palpation (GI): Soft to palpation, nontender, no guarding, not rigid and No hepatosplenomegaly present Percussion: Yes normal to percussion Auscultation: normal bowel sounds Rectal Exam - Female: deferred Skin General skin exam: no rashes or lesions noted, turgor normal, skin not dry, no jaundice, No spider nevi and no striae Rashes: no rashes Nails: normal Neuro General: oriented to person, oriented to place and oriented to time Cranial nerves: Yes Equal, round and reactive pupils present and Yes Normal hearing present Speech: No Abnormal speech present Extrem General: Yes normal to inspection, No clubbing, No cyanosis and No edema Psych Appearance: grossly normal and well kempt Mental Status: mental status grossly normal Speech and movement: Normal speech and movement present Affect: normal affect Attitude: cooperative Thought process: Normal thought process present and not confabulating Thought content: Normal thought content present Insight: Limited insight present (Psych) Judgement: Limited judgement present (Psych) Assessment & Plan Assessment & Plan (1) Family history of polyps in the colon: Comment: SISTER, last scoped 2020 repeat 3-5 years Code(s): Z83.71 - Family history of colonic polyps (2) Tubular adenoma of colon: Comment: 08/2020 scope repeat 3-5 years Code(s): D12.6 - Benign neoplasm of colon, unspecified (3) Pre-op examination: Code(s): Z01.818 - Encounter for other preprocedural examination (4) Dysphagia: Code(s): R13.10 - Dysphagia, unspecified (5) GERD (gastroesophageal reflux disease): Code(s): K21.9 - Gastro-esophageal reflux disease without esophagitis (6) Constipation: Code(s): K59.00 - Constipation, unspecified Plan Kinyarwanda #[id number] I have not seen this patient since 2020 but they had a rather large tubular adenoma with a 3-5 year repeat She has hemorrhoids, and says that she has and odd sensation around her anus and is unsure if this is her hemorrhoids. she has had an increase in her GERD, and she is now taking a pill that sounds like omeprazole capsule, but she does not know the name, she takes it about 3 times a month. However, she has been having intermittent dysphagia that is so bad she will have to go to the BR and vomit it back up. The food seems to stick mid sternally. She is also having more trouble with constipation having to drink prune juice quite often but she feels that this is not sufficiently moving her bowels which might explain the increase in heartburn. I think will start her on a mild dose of senna and titrate to affect her side. Her asthma is well controlled and she denies any cardiac problems. There are no ID problems. She states she has had prior polyps, there is no known FHX of crc but there is a hx of polyps in her sister. Return office visit in 4 weeks to evaluate this senna and the hemorrhoid cream. I have also asked her to bring her acid reflux medication along so I can update her med list in know what she is taking. Orders: Orders [place] barium swallow Today K21.9 - Gastro-esophageal reflux disease without esophagitis, R13.10 - Dysphagia, unspecified EGD/[place] Combo - GI Use Only Today D12.6 - Benign neoplasm of colon, unspecified, R13.10 - Dysphagia, unspecified Medications: New peg 3350-electrolytes 236-22.74-6.74 -5.86 gram (Golytely) until fecal effluent is clear; do not exceed a total volume of 2,000 mL 240 mL PO Q10M 1 day 4,000 mL 0RF Z12.11 - Encounter for screening for malignant neoplasm of colon hydrocortisone 2.5% (Proctosol HC) BE SURE TO INCLUDE RECTAL APPICATOR!! 1 appl [place] BID 30 grams 6RF hemorrhoids K64.9 - Unspecified hemorrhoids sennosides (Senna Laxative) 17.2 mg (2 x 8.6 mg) PO BEDTIME 60 tabs 6RF K59.00 - Constipation, unspecified bisacodyl (Dulcolax (bisacodyl)) 10 mg (2 x 5 mg) PO BEDTIME 2 days 4 tabs 0RF Coding Level of Care Code New Pt Level 3 (47787) Diagnoses Family history of polyps in the colon Z83.71 Tubular adenoma of colon D12.6 Pre-op examination Z01.818 Dysphagia R13.10 GERD (gastroesophageal reflux disease) K21.9 Constipation K59.00
[2023-07-21 15:33] VITALS: BP 121/58; PULSE 78; BMI 25.8
== END 2023-07-21 16:11 | disposition home or self-care (01) ==
PROVIDERS: PCP Internal Medicine; Visit Provider Nurse Practitioner
DX: R13.10 Dysphagia, unspecified (principal); K59.00 Constipation, unspecified; Z12.11 Encounter for screening for malignant neoplasm of colon; Z86.010 Personal history of colon polyps
CPT/HCPCS: 99213

== ENCOUNTER → 2023-07-21 15:25 | Outpatient (BNVA) | payer OTHER, SELFPAY | PROVIDERS: PCP Internal Medicine; Visit Provider Nurse Practitioner | DX: Z01.818 Encounter for other preprocedural examination (principal); K21.9 Gastro-esophageal reflux disease without esophagitis; K59.00 Constipation, unspecified; R13.10 Dysphagia, unspecified; Z83.719 Family history of colon polyps, unspecified | CPT/HCPCS: 99212 ==

== ENCOUNTER 2023-08-06 11:25 | Outpatient (AMB) | payer OTHER, SELFPAY ==
[2023-08-06 11:54] VITALS: BP 140/70; PULSE 86; TEMP 36.6; O2SAT 97; BMI 25.5
--- NOTE | 2023-08-06 11:54 | AM.OFFWIN_ITS ---
Intake Vital Signs 08/06/23 11:54 Height 5 ft 5 in Weight 153 lb BMI 25.5 BP 140/70 H Blood Pressure Location Lt brachial Position Sitting Pulse 86 Pulse Source Pulse Oximeter Temp 97.8 F Temp Source Temporal Artery Scan Pulse Oximetry (%) 97 Oxygen Delivery Method Room Air Intake Visit Reasons: EP pink eye Intake Note: pt is here today for pink eye started thursday Patient Tobacco Use Status: Former Tobacco user Allergies No Known Allergies [No Known Allergies*] Allergy (Verified 08/06/23 11:56) Do you need a note to return to daycare/school/sports/work: No HPI HPI Comments History of Present Illness Details 68-year-old female presents with bilater al injection of her eyes and she states there has been discharge present for the last 5-6 days. Denies any visual changes or blurry vision [facility] Medical History Skin lesion Rhinitis Impaired glucose tolerance High cholesterol Hypertension Asthma Surgical History Hx of colonoscopy History of total abdominal hysterectomy and bilateral salpingo-oophorectomy Family History Father No problems noted. Mother Hypertension Stroke Maternal Grandmother No problems noted. Maternal Grandfather No problems noted. Paternal Grandmother Diabetes Paternal Grandfather No problems noted. Paternal Aunt Cancer Other History of total abdominal hysterectomy and bilateral salpingo- oophorectomy Social History Household Members: None Housing: Other Housing Other:: Basement Alcohol intake: current Alcohol intake frequency: holidays/special occasions only Alcohol type: beer Patient Tobacco Use Status: Former Tobacco user Tobacco use type: Cigarette e-Cigarette/Vaping Use: Never Used Second Hand Smoke Exposure: No Substance Use Type: Marijuana service: No Current occupational status: disabled Cognitive needs: No Hearing needs: No Vision needs: Yes Review of Systems Const All systems reviewed & are unremarkable except as noted in HPI and below Eyes Reports no additional complaints Physical Exam Vital Signs: Last Vital Signs Temp 97.8 F 08/06/23 11:54 Pulse 86 08/06/23 11:54 BP 140/70 H 05/02/24 11:54 Pulse Ox 97 08/06/23 11:54 Oxygen Delivery Method Room Air 08/06/23 11:54 BMI result Body Mass Index 25.5 Eyes Conjunctivae: conjunctival abnormal bilateral (Injection) conjunctival injection Assessment & Plan Assessment & Plan (1) Conjunctivitis: Code(s): H10.9 - Unspecified conjunctivitis Plan: The patient had use some poly-Mycin neomycin drops she had left over from last year. So I ordered a refill for her she will follow up with her PCP as needed Plan See plan Medications: New [id number] 3.5-10,000-10 mg-unit-mg/mL 1 drp ophthalmic (eye) QID 5 days 7.5 mL 0RF Coding Level of Care Code Est Pt Level 3 (69759) Diagnoses Conjunctivitis H10.9
== END 2023-08-06 13:16 | disposition home or self-care (01) ==
PROVIDERS: PCP Internal Medicine; Visit Provider Physician Assistant Medical
DX: H10.9 Unspecified conjunctivitis (principal)
CPT/HCPCS: 99213

== ENCOUNTER 2023-08-28 11:55 | Outpatient (AMB) | payer OTHER, SELFPAY ==
--- NOTE | 2023-08-28 12:20 | A.OFFVIS_ITS ---
Vital Signs 08/28/23 12:38 08/28/23 12:40 Height 5 ft 5 in 5 ft 5 in Weight 153 lb BMI 25.5 BP 142/63 H Blood Pressure Location Lt brachial Position Sitting Pulse 72 Intake Visit Reasons: follow up GERD and CIC Intake Note: Patient follow up for GERD and CIC. Patient cc: chocking with food on and off also she have a mass on her lowest throat, denies any other GI issues. Data Entry Machine Operator Required: Yes Data Entry Machine Operator Name: [facility] Interpeter Accompanied by: Self / Same As Patient Allergies No Known Allergies [No Known Allergies*] Allergy (Verified 08/28/23 12:33) HPI HPI follow up GERD and CIC: Details: Assessment & Plan (1) Family history of polyps in the colon: Comment: SISTER, last scoped 2020 repeat 3-5 years Code(s): Z83.71 - Family history of colonic polyps (2) Tubular adenoma of colon: Comment: 08/2020 scope repeat 3-5 years Code(s): D12.6 - Benign neoplasm of colon, unspecified (3) Pre-op examination: Code(s): Z01.818 - Encounter for other preprocedural examination (4) Dysphagia: Code(s): R13.10 - Dysphagia, unspecified (5) GERD (gastroesophageal reflux disease): Code(s): K21.9 - Gastro-esophageal reflux disease without esophagitis (6) Constipation: Code(s): K59.00 - Constipation, unspecified Plan [place] #[id number] I have not seen this patient since 2020 but they had a rather large tubular adenoma with a 3-5 year repeat She has hemorrhoids, and says that she has and odd sensation around her anus and is unsure if this is her hemorrhoids. she has had an increase in her GERD, and she is now taking a pill that sounds like omeprazole capsule, but she does not know the name, she takes it about 3 times a month. However, she has been having intermittent dysphagia that is so bad she will have to go to the BR and vomit it back up. The food seems to stick mid sternally. She is also having more trouble with constipation having to drink prune juice quite often but she feels that this is not sufficiently moving her bowels which might explain the increase in heartburn. I think will start her on a mild dose of senna and titrate to affect her side. Her asthma is well controlled and she denies any cardiac problems. There are no ID problems. She states she has had prior polyps, there is no known FHX of crc but there is a hx of polyps in her sister. Return office visit in 4 weeks to evaluate this senna and the hemorrhoid cream. I have also asked her to bring her acid reflux medication along so I can update her med list in know what she is taking. Orders: Orders [place] barium swallow Today K21.9 - Gastro-esophageal reflux disease without esophagitis, R13.10 - Dysphagia, unspecified EGD/[place] Combo - GI Use Only Today D12.6 - Benign neoplasm of colon, unspecified, R13.10 - Dysphagia, unspecified Medications: New peg 3350-electrolytes 236-22.74-6.74 -5.86 gram (Golytely) until fecal effluent is clear; do not exceed a total volume of 2,000 mL 240 mL PO Q10M 1 day 4,000 mL 0RF Z12.11 - Encounter for screening for malignant neoplasm of colon hydrocortisone 2.5% (Proctosol HC) BE SURE TO INCLUDE RECTAL APPICATOR!! 1 appl [place] BID 30 grams 6RF hemorrhoids K64.9 - Unspecified hemorrhoids sennosides (Senna Laxative) 17.2 mg (2 x 8.6 mg) PO BEDTIME 60 tabs 6RF K59.00 - Constipation, unspecified bisacodyl (Dulcolax (bisacodyl)) 10 mg (2 x 5 mg) PO BEDTIME 2 days 4 tabs 0RF EGD/COLONOSCOPY SCHEDULED FOR 12/02/2023 BIOPSY BARIUM SWALLOW SCHEDULED FOR 09/18/2023 TODAYS VISIT [place] #Dori Daryn Wilkerson She feels that the senna helped her a great deal and she is moving her bowels well. This has resolved the rectal irritation with the cream. she brings her medications and she is taking omeprazole 20mg qd. she says she had an egd with biopsies of masses in my neck, these were negative but she wonders if they are growing and effecting the swallowing. She is aware of upcoming barium swallow and EGD/colonoscopy. she has an appt with me s/p procedure in December. Keep that appt. [facility] Medical History (Updated 08/28/23 @ 12:22 by KEDAR Rodriguez) Pre-op examination Physical exam Colon cancer screening Skin lesion Rhinitis Impaired glucose tolerance High cholesterol Hypertension Asthma Surgical History Hx of colonoscopy History of total abdominal hysterectomy and bilateral salpingo-oophorectomy Family History Father No problems noted. Mother Hypertension Stroke Maternal Grandmother No problems noted. Maternal Grandfather No problems noted. Paternal Grandmother Diabetes Paternal Grandfather No problems noted. Paternal Aunt Cancer Other History of total abdominal hysterectomy and bilateral salpingo- oophorectomy Social History Household Members: None Housing: Other Housing Other:: Basement Alcohol intake: current Alcohol intake frequency: holidays/special occasions only Alcohol type: beer Patient Tobacco Use Status: Former Tobacco user Tobacco use type: Cigarette e-Cigarette/Vaping Use: Never Used Second Hand Smoke Exposure: No Substance Use Type: Marijuana service: No Current occupational status: disabled Cognitive needs: No Hearing needs: No Vision needs: Yes Review of Systems Const Denies fatigue, Denies fever(s), Denies night sweats, Denies poor appetite and Denies weight loss ENT Reports Normal hearing present, Denies dental pain, Reports dysphagia, Denies hearing loss, Denies mouth pain, Denies odynophagia, Denies throat swelling, Denies tongue swelling and Reports other (Dentition adequate) Card Reports no additional complaints Resp Reports no additional complaints GI Details: Denies abdominal pain, Denies melena, Reports bloating, Denies hematochezia, Reports constipation, Denies GI cramping, Reports dysphagia, Denies excessive flatus, Denies early satiety, Reports heartburn, Denies diarrhea, Denies nausea, Denies odynophagia, Denies vomiting and Denies hematemesis Skin/Breast Denies pruritus, Denies lesions, Denies rash and Denies jaundice Neuro Reports Normal hearing present and Denies Abnormal speech present Endo Denies fatigue Aller/Immun Denies throat swelling and Denies tongue swelling Physical Exam Vital Signs: Last Vital Signs Pulse 72 08/28/23 12:38 BP 142/63 H 08/28/23 12:38 BMI result Body Mass Index 25.5 Const General: cooperative, no acute distress, well developed and well groomed Nutritional Appearance: average body habitus and well nourished Orientation/consciousness: oriented to person, oriented to place and oriented to time Limitations: language barrier HEENT Head: Yes normocephalic and Yes atraumatic Eyes General: appearance normal, both eyes and all related structures Pupils: Equal, round and reactive pupils present Neck Neck: Yes normal visual inspection and Yes no lymphadenopathy Thyroid: Thyroid normal Resp Effort & Inspection: normal respiratory effort and able to speak in complete sentences Auscultation: clear to auscultation bilaterally Cardio Rate: regular rate Rhythm: regular rhythm Heart sounds: Normal, physiologic split S2 sound present Peripheral pulses: radial pulses present and posterior tibial pulses present GI Inspection: No distended, No Abdominal panniculus present and Yes obesity Palpation (GI): Soft to palpation, nontender, no guarding, not rigid and No hepatosplenomegaly present Percussion: Yes normal to percussion Auscultation: normal bowel sounds Rectal Exam - Female: deferred Skin General skin exam: no rashes or lesions noted, turgor normal, skin not dry, no jaundice, No spider nevi and no striae Rashes: no rashes Nails: normal Neuro General: oriented to person, oriented to place and oriented to time Cranial nerves: Yes Equal, round and reactive pupils present and Yes Normal hearing present Speech: No Abnormal speech present Extrem General: Yes normal to inspection, No clubbing, No cyanosis and No edema Psych Appearance: grossly normal and well kempt Mental Status: mental status grossly normal Speech and movement: Normal speech and movement present Affect: normal affect Attitude: cooperative Thought process: Normal thought process present and not confabulating Thought content: Normal thought content present Insight: Limited insight present (Psych) Judgement: Limited judgement present (Psych) Assessment & Plan Assessment & Plan (1) Constipation: Code(s): K59.00 - Constipation, unspecified Category: Medical (2) GERD (gastroesophageal reflux disease): Code(s): K21.9 - Gastro-esophageal reflux disease without esophagitis Category: Medical (3) Tubular adenoma of colon: Comment: 08/2020 scope repeat 3-5 years Code(s): D12.6 - Benign neoplasm of colon, unspecified Category: Medical (4) Dysphagia: Code(s): R13.10 - Dysphagia, unspecified Category: Medical (5) Hemorrhoids: Code(s): K64.9 - Unspecified hemorrhoids Category: Medical Plan [place] #Dori Wilkerson She feels that the senna helped her a great deal and she is moving her bowels well. This has resolved the rectal irritation with the cream. she brings her medications and she is taking omeprazole 20mg qd. she says she had an egd with biopsies of masses in my neck, these were negative but she wonders if they are growing and effecting the swallowing. She is aware of upcoming barium swallow and EGD/colonoscopy. she has an appt with me s/p procedure in December. Keep that appt. ] EGD/COLONOSCOPY SCHEDULED FOR 12/02/2023 BIOPSY BARIUM SWALLOW SCHEDULED FOR 09/18/2023 Medications: New omeprazole 40 mg PO DAILY 30 caps 3RF 30 days Coding Level of Care Code Est Pt Level 3 (41999) Diagnoses Constipation K59.00 GERD (gastroesophageal reflux disease) K21.9 Tubular adenoma of colon D12.6 Dysphagia R13.10 Hemorrhoids K64.9
[2023-08-28 12:38] VITALS: BP 142/63; PULSE 72; BMI 25.5
== END 2023-08-28 13:04 | disposition home or self-care (01) ==
PROVIDERS: PCP Internal Medicine; Visit Provider Nurse Practitioner
DX: K59.00 Constipation, unspecified (principal); K21.9 Gastro-esophageal reflux disease without esophagitis; D12.6 Benign neoplasm of colon, unspecified; R13.10 Dysphagia, unspecified; K64.9 Unspecified hemorrhoids
CPT/HCPCS: 99213

== ENCOUNTER → 2023-08-28 11:55 | Outpatient (BNVA) | payer OTHER, SELFPAY | PROVIDERS: PCP Internal Medicine; Visit Provider Nurse Practitioner | DX: K59.00 Constipation, unspecified (principal); K21.9 Gastro-esophageal reflux disease without esophagitis; K64.9 Unspecified hemorrhoids; D12.6 Benign neoplasm of colon, unspecified; R13.10 Dysphagia, unspecified | CPT/HCPCS: 99212 ==

== ENCOUNTER 2023-09-18 07:23 | Outpatient (REF) | payer OTHER, SELFPAY ==
--- NOTE | ~2023-09-18 | FL_ITS ---
EXAMINATION: XR FLUOROSCOPY UPPER GI WITH AIR CLINICAL INFORMATION: Dysphagia COMPARISON: None TECHNIQUE: Fluoroscopic air contrast upper GI examination was performed utilizing standard techniques with thin and thick barium and effervescent granules. Numerous spot images were obtained. FINDINGS: Lateral cine images of the oropharynx and hypopharynx demonstrate normal swallow mechanism with normal epiglottic inversion and soft palate elevation. No tracheal penetration, glottic or subglottic aspiration identified. No nasopharyngeal reflux present. Hypopharyngeal structures appear normal without evidence of mass or diverticulum. Mild cricopharyngeal achalasia is present. Dual and single contrast images of the esophagus demonstrate a normal caliber. There is felinization of the mid and distal esophageal mucosa. The distal esophagus demonstrates granular mucosa, which extends into the hiatus hernia, findings consistent with erosive esophagitis. Esophageal peristalsis is moderate to severely disorganized, with episodic corkscrew appearance. Cannot exclude spasm. A Schatzki's ring is present that results in mild narrowing of the GE junction (RF 1-16, image 156). A moderate-sized type III hiatal hernia is present. Significant gastroesophageal reflux was seen up to the thoracic inlet. Dual contrast and single contrast images of the stomach demonstrated a normal contour. There are multiple areas of contrast pooling in the body and fundus of the stomach that may represent small superficial aphthous ulcers. No masses are seen. There is prominence and thickening of the areae gastricae. Contrast freely passed into the gastric antrum and duodenal bulb without delay. Single and air-contrast images of the duodenal bulb demonstrate no abnormality. The duodenal sweep has a normal appearance, course, and mucosal fold appearance. There is no malrotation. The imaged proximal jejunum has a normal fold pattern and caliber. FLUOROSCOPY TIME: 5 minutes 19 seconds Number of Spot Images: 10 Number of Cine: 17 DOSE AREA PRODUCT: 3287 uGy-m2 (microgray-meter squared) FL/FL barium swallow IMPRESSION: 1. Mild cricopharyngeal achalasia. 2. Moderate to severe esophageal dysmotility. Episodic corkscrew appearance. 3. Severe gastroesophageal reflux. 4. A Schatzki's ring is present that results in mild narrowing of the GE junction. 5. Felinization of the mid and distal esophageal mucosa. This is a benign finding typically indicating chronic gastroesophageal reflux. 6. Granular mucosa of the distal esophagus and hiatus hernia, findings suggesting erosive esophagitis. 7. Moderate-sized paraesophageal hiatal hernia. 8. Findings suggesting erosive gastritis. Recommend correlation with EGD. This procedure was performed by Keagan Clark PA-C, and supervised by Dr. Galvin
== END 2023-09-18 07:24 | disposition home or self-care (01) ==
LOC: HO.XRAY 07:23
PROVIDERS: PCP Internal Medicine; Visit Provider Nurse Practitioner
DX: R13.10 Dysphagia, unspecified (principal); K21.9 Gastro-esophageal reflux disease without esophagitis
CPT/HCPCS: 74220

== ENCOUNTER → 2023-09-18 07:27 | Outpatient (BNV) | payer OTHER, SELFPAY | PROVIDERS: PCP Internal Medicine; Visit Provider Physician Assistant Surgical | DX: R13.10 Dysphagia, unspecified (principal) | CPT/HCPCS: 74246 ==

== ENCOUNTER 2023-10-02 12:05 | Outpatient (AMB) | payer OTHER, SELFPAY ==
--- NOTE | 2023-10-02 12:08 | A.OFFVIS_ITS ---
Vital Signs 10/02/23 12:21 Height 5 ft 5 in Weight 154 lb 12.232 oz BMI 25.8 BP 134/76 Blood Pressure Location Rt brachial Position Sitting Pulse 97 Pulse Source Pulse Oximeter Pulse Oximetry (%) 72 L Oxygen Delivery Method Room Air Intake Visit Reasons: f/u barium swallow Intake Note: Lulu presents in office today for a scheduled FUV post BA FL CC; Pt reports new onset of dizziness approximately 2 weeks ago. Pt denies any other sx in conjunction with this complaint. Pt is not sure if this is somehow relevant to the reason of her visit today. Pt is here to discuss the test results. Racking Technician Required: Yes Racking Technician Services: Racking Technician Present Racking Technician Name: [id number] Information Interpreted: non-clinical & clinical Allergies No Known Allergies [No Known Allergies*] Allergy (Verified 10/02/23 12:19) HPI HPI f/u barium swallow: Details: Assessment & Plan (1) Constipation: Code(s): K59.00 - Constipation, unspecified Category: Medical (2) GERD (gastroesophageal reflux disease): Code(s): K21.9 - Gastro-esophageal reflux disease without esophagitis Category: Medical (3) Tubular adenoma of colon: Comment: 08/2020 scope repeat 3-5 years Code(s): D12.6 - Benign neoplasm of colon, unspecified Category: Medical (4) Dysphagia: Code(s): R13.10 - Dysphagia, unspecified Category: Medical (5) Hemorrhoids: Code(s): K64.9 - Unspecified hemorrhoids Category: Medical Plan Citizen Of [place] #Dori Wilkerson She feels that the senna helped her a great deal and she is moving her bowels well. This has resolved the rectal irritation with the cream. she brings her medications and she is taking omeprazole 20mg qd. she says she had an egd with biopsies of masses in my neck, these were negative but she wonders if they are growing and effecting the swallowing. She is aware of upcoming barium swallow and EGD/colonoscopy. she has an appt with me s/p procedure in December. Keep that appt. ] New omeprazole 40 mg PO DAILY 30 caps 3RF 30 days EGD/COLONOSCOPY SCHEDULED FOR 12/02/2023 BIOPSY BARIUM SWALLOW 09/18/23 FINDINGS: Lateral cine images of the oropharynx and hypopharynx demonstrate normal swallow mechanism with normal epiglottic inversion and soft palate elevation. No tracheal penetration, glottic or subglottic aspiration identified. No nasopharyngeal reflux present. Hypopharyngeal structures appear normal without evidence of mass or diverticulum. Mild cricopharyngeal achalasia is present. Dual and single contrast images of the esophagus demonstrate a normal caliber. There is felinization of the mid and distal esophageal mucosa. The distal esophagus demonstrates granular mucosa, which extends into the hiatus hernia, findings consistent with erosive esophagitis. Esophageal peristalsis is moderate to severely disorganized, with episodic corkscrew appearance. Cannot exclude spasm. A Schatzki's ring is present that results in mild narrowing of the GE junction (RF 1-16, image 156). A moderate-sized type III hiatal hernia is present. Significant gastroesophageal reflux was seen up to the thoracic inlet. Dual contrast and single contrast images of the stomach demonstrated a normal contour. There are multiple areas of contrast pooling in the body and fundus of the stomach that may represent small superficial aphthous ulcers. No masses are seen. There is prominence and thickening of the areae gastricae. Contrast freely passed into the gastric antrum and duodenal bulb without delay. Single and air-contrast images of the duodenal bulb demonstrate no abnormality. The duodenal sweep has a normal appearance, course, and mucosal fold appearance. There is no malrotation. The imaged proximal jejunum has a normal fold pattern and caliber. FLUOROSCOPY TIME: 5 minutes 19 seconds Number of Spot Images: 10 Number of Cine: 17 DOSE AREA PRODUCT: 3287 uGy-m2 (microgray-meter squared) FL/FL barium swallow IMPRESSION: 1. Mild cricopharyngeal achalasia. 2. Moderate to severe esophageal dysmotility. Episodic corkscrew appearance. 3. Severe gastroesophageal reflux. 4. A Schatzki's ring is present that results in mild narrowing of the GE junction. 5. Felinization of the mid and distal esophageal mucosa. This is a benign finding typically indicating chronic gastroesophageal reflux. 6. Granular mucosa of the distal esophagus and hiatus hernia, findings suggesting erosive esophagitis. 7. Moderate-sized paraesophageal hiatal hernia. 8. Findings suggesting erosive gastritis. CORRESPONDENCE On 09/30/23 @ 13:55 Zoe Montalvo Wrote To KatiaJuly (2) It is really too much to explain over the phone. She has a lot going on in her esophagus probably driven by a very large hiatal hernia. He should probably try to get her in to see me sooner so I can explain these things in person. However, the endoscopy will also be important in her full diagnosis. On 09/29/23 @ 16:52 Paula Singh Wrote To KatiaJuly Please see message below and advise. On 09/29/23 @ 14:05 Rosaline Talavera Wrote To KatiaJuly (2) Pt asked if you can please call with BA Results, she's worried and doesn't want to wait til 11/06/23, TODAYS VISIT Citizen [place] #[id number] I explain the results, whether we consider fund repair of the hernia will depend on how she responds after the EGD with possible dilations. Her disorganized swallowing could be from this or, multifactorial. She is taking the omeprazole 40mg and feels it is controlling her gerd. Keep appt after EGD 12/2023 [facility] Medical History Pre-op examination Physical exam Colon cancer screening Skin lesion Rhinitis Impaired glucose tolerance High cholesterol Hypertension Asthma Surgical History Hx of colonoscopy History of total abdominal hysterectomy and bilateral salpingo-oophorectomy Family History Father No problems noted. Mother Hypertension Stroke Maternal Grandmother No problems noted. Maternal Grandfather No problems noted. Paternal Grandmother Diabetes Paternal Grandfather No problems noted. Paternal Aunt Cancer Other History of total abdominal hysterectomy and bilateral salpingo- oophorectomy Social History Household Members: None Housing: Other Housing Other:: Basement Alcohol intake: current Alcohol intake frequency: holidays/special occasions only Alcohol type: beer Patient Tobacco Use Status: Former Tobacco user Tobacco use type: Cigarette e-Cigarette/Vaping Use: Never Used Second Hand Smoke Exposure: No Substance Use Type: Marijuana service: No Current occupational status: disabled Cognitive needs: No Hearing needs: No Vision needs: Yes Review of Systems Const Denies fatigue, Denies fever(s), Denies night sweats, Denies poor appetite and Denies weight loss ENT Reports Normal hearing present, Denies dental pain, Reports dysphagia, Denies hearing loss, Denies mouth pain, Denies odynophagia, Denies throat swelling, Denies tongue swelling and Reports other (Dentition adequate) Card Reports no additional complaints Resp Reports no additional complaints GI Details: Denies abdominal pain, Denies melena, Reports bloating, Denies hematochezia, Denies constipation, Denies GI cramping, Reports dysphagia, Denies excessive flatus, Denies early satiety, Reports heartburn, Denies diarrhea, Denies nausea, Denies odynophagia, Denies vomiting and Denies hematemesis Skin/Breast Denies pruritus, Denies lesions, Denies rash and Denies jaundice Neuro Reports Normal hearing present and Denies Abnormal speech present Endo Denies fatigue Aller/Immun Denies throat swelling and Denies tongue swelling Physical Exam Vital Signs: Last Vital Signs Pulse 97 10/02/23 12:21 BP 134/76 10/02/23 12:21 Pulse Ox 72 L 10/02/23 12:21 Oxygen Delivery Method Room Air 10/02/23 12:21 BMI result Body Mass Index 25.8 Const General: cooperative, no acute distress, well developed and well groomed Nutritional Appearance: average body habitus and well nourished Orientation/consciousness: oriented to person, oriented to place and oriented to time Limitations: language barrier HEENT Head: Yes normocephalic and Yes atraumatic Eyes General: appearance normal, both eyes and all related structures Pupils: Equal, round and reactive pupils present Neck Neck: Yes normal visual inspection and Yes no lymphadenopathy Thyroid: Thyroid normal Resp Effort & Inspection: normal respiratory effort and able to speak in complete sentences Auscultation: clear to auscultation bilaterally Cardio Rate: regular rate Rhythm: regular rhythm Heart sounds: Normal, physiologic split S2 sound present Peripheral pulses: radial pulses present and posterior tibial pulses present GI Inspection: No distended and No Abdominal panniculus present Palpation (GI): Soft to palpation, nontender, no guarding, not rigid and No hepatosplenomegaly present Percussion: Yes normal to percussion Auscultation: normal bowel sounds Rectal Exam - Female: deferred Skin General skin exam: no rashes or lesions noted, turgor normal, skin not dry, no jaundice, No spider nevi and no striae Rashes: no rashes Nails: normal Neuro General: oriented to person, oriented to place and oriented to time Cranial nerves: Yes Equal, round and reactive pupils present and Yes Normal hearing present Speech: No Abnormal speech present Extrem General: Yes normal to inspection, No clubbing, No cyanosis and No edema Psych Appearance: grossly normal and well kempt Mental Status: mental status grossly normal Speech and movement: Normal speech and movement present Affect: normal affect Attitude: cooperative Thought process: Normal thought process present and not confabulating Thought content: Normal thought content present Insight: Limited insight present (Psych) Judgement: Limited judgement present (Psych) Results Reviewed Results Reviewed: BARIUM SWALLOW 09/18/23 FINDINGS: Lateral cine images of the oropharynx and hypopharynx demonstrate normal swallow mechanism with normal epiglottic inversion and soft palate elevation. No tracheal penetration, glottic or subglottic aspiration identified. No nasopharyngeal reflux present. Hypopharyngeal structures appear normal without evidence of mass or diverticulum. Mild cricopharyngeal achalasia is present. Dual and single contrast images of the esophagus demonstrate a normal caliber. There is felinization of the mid and distal esophageal mucosa. The distal esophagus demonstrates granular mucosa, which extends into the hiatus hernia, findings consistent with erosive esophagitis. Esophageal peristalsis is moderate to severely disorganized, with episodic corkscrew appearance. Cannot exclude spasm. A Schatzki's ring is present that results in mild narrowing of the GE junction (RF 1-16, image 156). A moderate-sized type III hiatal hernia is present. Significant gastroesophageal reflux was seen up to the thoracic inlet. Dual contrast and single contrast images of the stomach demonstrated a normal contour. There are multiple areas of contrast pooling in the body and fundus of the stomach that may represent small superficial aphthous ulcers. No masses are seen. There is prominence and thickening of the areae gastricae. Contrast freely passed into the gastric antrum and duodenal bulb without delay. Single and air-contrast images of the duodenal bulb demonstrate no abnormality. The duodenal sweep has a normal appearance, course, and mucosal fold appearance. There is no malrotation. The imaged proximal jejunum has a normal fold pattern and caliber. FLUOROSCOPY TIME: 5 minutes 19 seconds Number of Spot Images: 10 Number of Cine: 17 DOSE AREA PRODUCT: 3287 uGy-m2 (microgray-meter squared) FL/FL barium swallow IMPRESSION: 1. Mild cricopharyngeal achalasia. 2. Moderate to severe esophageal dysmotility. Episodic corkscrew appearance. 3. Severe gastroesophageal reflux. 4. A Schatzki's ring is present that results in mild narrowing of the GE junction. 5. Felinization of the mid and distal esophageal mucosa. This is a benign finding typically indicating chronic gastroesophageal reflux. 6. Granular mucosa of the distal esophagus and hiatus hernia, findings suggesting erosive esophagitis. 7. Moderate-sized paraesophageal hiatal hernia. 8. Findings suggesting erosive gastritis. Assessment & Plan Assessment & Plan (1) GERD (gastroesophageal reflux disease): Code(s): K21.9 - Gastro-esophageal reflux disease without esophagitis Category: Medical (2) Esophageal stricture: Code(s): K22.2 - Esophageal obstruction Category: Medical (3) Esophageal dysmotility: Code(s): K22.4 - Dyskinesia of esophagus Category: Medical (4) Dysphagia: Code(s): R13.10 - Dysphagia, unspecified Category: Medical Plan Citizen [place] #[id number] I explain the results, whether we consider fund repair of the hernia will depend on how she responds after the EGD with possible dilations. Her disorganized swallowing could be from this or, multifactorial. She is taking the omeprazole 40mg and feels it is controlling her gerd. Keep appt after EGD 12/2023 EGD/COLONOSCOPY SCHEDULED FOR 12/02/2023 BIOPSY Coding Level of Care Code Est Pt Level 3 (83641) Diagnoses GERD (gastroesophageal reflux disease) K21.9 Esophageal stricture K22.2 Esophageal dysmotility K22.4 Dysphagia R13.10
[2023-10-02 12:21] VITALS: BP 134/76; PULSE 97; O2SAT 72; BMI 25.8
== END 2023-10-02 12:34 | disposition home or self-care (01) ==
PROVIDERS: PCP Internal Medicine; Visit Provider Nurse Practitioner
DX: K21.9 Gastro-esophageal reflux disease without esophagitis (principal); K22.2 Esophageal obstruction; K22.4 Dyskinesia of esophagus; R13.10 Dysphagia, unspecified
CPT/HCPCS: 99213

== ENCOUNTER → 2023-10-02 12:05 | Outpatient (BNVA) | payer OTHER, SELFPAY | PROVIDERS: PCP Internal Medicine; Visit Provider Nurse Practitioner | DX: K22.2 Esophageal obstruction (principal); K21.9 Gastro-esophageal reflux disease without esophagitis; K22.4 Dyskinesia of esophagus; R13.10 Dysphagia, unspecified | CPT/HCPCS: 99212 ==

== ENCOUNTER 2023-10-07 12:48 | Outpatient (AMB) | payer OTHER, SELFPAY ==
--- NOTE | 2023-10-07 13:27 | AM.OFFWIN_ITS ---
Intake Vital Signs 10/07/23 13:48 BP 132/78 Blood Pressure Location Rt brachial Position Sitting Pulse 77 Pulse Source Pulse Oximeter Pulse Oximetry (%) 98 Oxygen Delivery Method Room Air Intake Visit Reasons: EP Dizzy, feels like throat closing Patient Tobacco Use Status: Former Tobacco user Allergies No Known Allergies [No Known Allergies*] Allergy (Verified 10/02/23 12:19) HPI HPI Comments History of Present Illness Details Patient is a 68-year-old female complaining of feeling like her throat is closing up. She states she is afraid she will have trouble breathing. She explains that she was told she has a hernia as well as a small esophagus and she is worried this is going to interfere with her breathing. She was told she needs to have her esophagus dilated. She denies any chest pain or shortness of breath or trouble breathing. She is also stating she has some blurry vision that started after she got her eyes dilated 2 weeks ago. She states she called the eye doctor's office but they told her the eye doctors on vacation and she should follow up with her primary care doctor. RIMMA Levy was present in the room and translated [place] to [place]ian [facility] Medical History Pre-op examination Physical exam Colon cancer screening Skin lesion Rhinitis Impaired glucose tolerance High cholesterol Hypertension Asthma Surgical History Hx of colonoscopy History of total abdominal hysterectomy and bilateral salpingo-oophorectomy Family History Father No problems noted. Mother Hypertension Stroke Maternal Grandmother No problems noted. Maternal Grandfather No problems noted. Paternal Grandmother Diabetes Paternal Grandfather No problems noted. Paternal Aunt Cancer Other History of total abdominal hysterectomy and bilateral salpingo- oophorectomy Social History Household Members: None Housing: Other Housing Other:: Basement Alcohol intake: current Alcohol intake frequency: holidays/special occasions only Alcohol type: beer Patient Tobacco Use Status: Former Tobacco user Tobacco use type: Cigarette e-Cigarette/Vaping Use: Never Used Second Hand Smoke Exposure: No Substance Use Type: Marijuana service: No Current occupational status: disabled Cognitive needs: No Hearing needs: No Vision needs: Yes Review of Systems Const All systems reviewed & are unremarkable except as noted in HPI and below Physical Exam Const General: cooperative, healthy appearing, comfortable, no acute distress and well developed Orientation/consciousness: patient oriented x3 Limitations: no limitations HEENT Head: Yes normal to inspection Ears: hearing grossly normal bilaterally and external ears normal General nose exam: Normal external nose present and Normal nares present Face and sinus: Yes normal facial exam and Yes face symmetric Mouth: Normal oral and palatal mucosa present, lip normal, tongue normal, Normal salivary glands and ducts present, oropharynx normal and moist mucous membranes Teeth and gingiva: dentition normal Throat: Yes posterior oropharynx normal, Yes tonsils normal and Yes uvula midline Eyes General: appearance normal, both eyes and all related structures Neck Neck: Yes normal visual inspection and Yes full ROM Resp Effort & Inspection: normal respiratory effort and able to speak in complete sentences Auscultation: clear to auscultation bilaterally Cardio Rate: regular rate Rhythm: regular rhythm Heart sounds: normal S1 and S2 Skin General skin exam: no rashes or lesions noted Neuro General: patient oriented x3 Extrem General: Yes normal to inspection Assessment & Plan Assessment & Plan (1) Esophageal stricture: Code(s): K22.2 - Esophageal obstruction Plan: Spoke with patient in her stock[place] language using the help of Mildred SHANKS, and sounds like she was mostly worried that her esophageal strictures were going to interfere with her breathing. Explained the anatomy of the trachea and esophagus to patient and let her know that even if she has strictures in her esophagus, it has not going to cut off her airway or her ability to breathe. She feels much better knowing this information and understands she should follow up with her GI doctor to get her strictures dilated. But she knows that should not interfere with her breathing. I did educate her and tell her if she feels short of breath or like her throat is closing that she should go to the emergency department. Plan see above Coding Level of Care Code Est Pt Level 4 (02706) Diagnoses Esophageal stricture K22.2
[2023-10-07 13:48] VITALS: BP 132/78; PULSE 77; O2SAT 98
== END 2023-10-07 14:05 | disposition home or self-care (01) ==
PROVIDERS: PCP Internal Medicine; Visit Provider Physician Assistant
DX: K22.2 Esophageal obstruction (principal)
CPT/HCPCS: 99214

== ENCOUNTER 2023-11-06 12:55 | Outpatient (AMB) | payer OTHER, SELFPAY ==
--- NOTE | 2023-11-06 13:07 | A.OFFVIS_ITS ---
Vital Signs 11/06/23 13:22 Height 5 ft 5 in Weight 155 lb 3.287 oz BMI 25.8 Intake Visit Reasons: BA Swallow Results Intake Note: Lulu presents to in office follow up of barium swallow. CC: Patient reports that she is sometimes a little constipated and occasional heartburn at night. Hassock Maker Required: Yes Accompanied by: Self / Same As Patient Allergies No Known Allergies [No Known Allergies*] Allergy (Verified 11/06/23 13:26) HPI HPI BA Swallow Results: Details: Assessment & Plan (1) GERD (gastroesophageal reflux disease): Code(s): K21.9 - Gastro-esophageal reflux disease without esophagitis Category: Medical (2) Esophageal stricture: Code(s): K22.2 - Esophageal obstruction Category: Medical (3) Esophageal dysmotility: Code(s): K22.4 - Dyskinesia of esophagus Category: Medical (4) Dysphagia: Code(s): R13.10 - Dysphagia, unspecified Category: Medical Plan [place] #[id number] I explain the results, whether we consider fund repair of the hernia will depend on how she responds after the EGD with possible dilations. Her disorganized swallowing could be from this or, multifactorial. She is taking the omeprazole 40mg and feels it is controlling her gerd. Keep appt after EGD 12/2023 EGD/COLONOSCOPY SCHEDULED FOR 12/02/2023 BIOPSY * TODAY'S VISIT [place] #[id number] Daysi She is aware of her upcoming EGD/colonoscopy 12/01. She says her swallowing is a little better and she continues on her omeprazole. Her disorganized swallowing could be from this or, multifactorial. She says I have been praying to God to take the problem away. She lets me know - as she is letting all of her providers know - that she is a FULL RESUSCITATION. Keep appt after procedures 12/14 for further assessment. [facility] Medical History Hemorrhoids Conjunctivitis Neck pain Skin mole Syncope Hair loss Skin lesion Right knee pain Pre-op examination Physical exam Colon cancer screening Rhinitis Impaired glucose tolerance High cholesterol Hypertension Asthma Surgical History Hx of colonoscopy History of total abdominal hysterectomy and bilateral salpingo-oophorectomy Family History Father No problems noted. Mother Hypertension Stroke Maternal Grandmother No problems noted. Maternal Grandfather No problems noted. Paternal Grandmother Diabetes Paternal Grandfather No problems noted. Paternal Aunt Cancer Other History of total abdominal hysterectomy and bilateral salpingo-oophorectomy Social History Household Members: None Housing: Other Housing Other:: Basement Alcohol intake: current Alcohol intake frequency: holidays/special occasions only Alcohol type: beer Patient Tobacco Use Status: Former Tobacco user Tobacco use type: Cigarette e-Cigarette/Vaping Use: Never Used Second Hand Smoke Exposure: No Substance Use Type: Marijuana service: No Current occupational status: disabled Cognitive needs: No Hearing needs: No Vision needs: Yes Review of Systems Const Denies fatigue, Denies fever(s), Denies night sweats, Denies poor appetite and Denies weight loss ENT Reports Normal hearing present, Denies dental pain, Reports dysphagia, Denies hearing loss, Denies mouth pain, Denies odynophagia, Denies throat swelling, Denies tongue swelling and Reports other (Dentition adequate) Card Reports no additional complaints Resp Reports no additional complaints GI Details: Denies abdominal pain, Denies melena, Denies bloating, Denies hematochezia, Denies constipation, Denies GI cramping, Reports dysphagia, Denies excessive flatus, Denies early satiety, Reports heartburn, Denies diarrhea, Denies nausea, Denies odynophagia, Denies vomiting and Denies hematemesis Skin/Breast Denies pruritus, Denies lesions, Denies rash and Denies jaundice Neuro Reports Normal hearing present and Denies Abnormal speech present Endo Denies fatigue Aller/Immun Denies throat swelling and Denies tongue swelling Physical Exam Vital Signs: BMI result Body Mass Index 25.8 Const General: cooperative, no acute distress, well developed and well groomed Nutritional Appearance: average body habitus and well nourished Orientation/consciousness: oriented to person, oriented to place and oriented to time Limitations: language barrier HEENT Head: Yes normocephalic and Yes atraumatic Eyes General: appearance normal, both eyes and all related structures Pupils: Equal, round and reactive pupils present Neck Neck: Yes normal visual inspection and Yes no lymphadenopathy Thyroid: Thyroid normal Resp Effort & Inspection: normal respiratory effort and able to speak in complete sentences Auscultation: clear to auscultation bilaterally Cardio Rate: regular rate Rhythm: regular rhythm Heart sounds: Normal, physiologic split S2 sound present Peripheral pulses: radial pulses present and posterior tibial pulses present GI Inspection: No distended and No Abdominal panniculus present Palpation (GI): Soft to palpation, nontender, no guarding, not rigid and No hepatosplenomegaly present Percussion: Yes normal to percussion Auscultation: normal bowel sounds Rectal Exam - Female: deferred Skin General skin exam: no rashes or lesions noted, turgor normal, skin not dry, no jaundice, No spider nevi and no striae Rashes: no rashes Nails: normal Neuro General: oriented to person, oriented to place and oriented to time Cranial nerves: Yes Equal, round and reactive pupils present and Yes Normal hearing present Speech: No Abnormal speech present Extrem General: Yes normal to inspection, No clubbing, No cyanosis and No edema Psych Appearance: grossly normal and well kempt Mental Status: mental status grossly normal Speech and movement: Normal speech and movement present Affect: normal affect Attitude: cooperative Thought process: Normal thought process present and not confabulating Thought content: Normal thought content present Insight: Limited insight present (Psych) Judgement: Limited judgement present (Psych) Assessment & Plan Assessment & Plan (1) Esophageal dysmotility: Code(s): K22.4 - Dyskinesia of esophagus Category: Medical (2) Esophageal stricture: Code(s): K22.2 - Esophageal obstruction Category: Medical (3) Dysphagia: Code(s): R13.10 - Dysphagia, unspecified Category: Medical (4) GERD (gastroesophageal reflux disease): Code(s): K21.9 - Gastro-esophageal reflux disease without esophagitis Category: Medical Plan [place] #[id number] Daysi She is aware of her upcoming EGD/colonoscopy 12/01. She says her swallowing is a little better and she continues on her omeprazole. Her disorganized swallowing could be from this or, multifactorial. She says I have been praying to God to take the problem away. She lets me know - as she is letting all of her providers know - that she is a FULL RESUSCITATION. Keep appt after procedures 12/14 for further assessment. EGD/COLONOSCOPY SCHEDULED FOR 12/02/2023 BIOPSY * Coding Level of Care Code Est Pt Level 3 (52980) Diagnoses Esophageal dysmotility K22.4 Esophageal stricture K22.2 Dysphagia R13.10 GERD (gastroesophageal reflux disease) K21.9
[2023-11-06 13:22] VITALS: BMI 25.8
== END 2023-11-06 13:54 | disposition home or self-care (01) ==
PROVIDERS: PCP Internal Medicine; Visit Provider Nurse Practitioner
DX: K22.4 Dyskinesia of esophagus (principal); K22.2 Esophageal obstruction; R13.10 Dysphagia, unspecified; K21.9 Gastro-esophageal reflux disease without esophagitis
CPT/HCPCS: 99213

== ENCOUNTER → 2023-11-06 12:55 | Outpatient (BNVA) | payer OTHER, SELFPAY | PROVIDERS: PCP Internal Medicine; Visit Provider Nurse Practitioner | DX: K22.4 Dyskinesia of esophagus (principal); K22.2 Esophageal obstruction; K21.9 Gastro-esophageal reflux disease without esophagitis; R13.10 Dysphagia, unspecified | CPT/HCPCS: 99212 ==

== ENCOUNTER 2023-12-02 11:13 | Day surgery (SDC) | payer OTHER, SELFPAY ==
--- NOTE | 2023-12-01 10:49 | P.CONAN_ITS ---
Documented by User: Mary Anne Kebede NP 12/01/23 10:49 HPI - Anesthesia Eval Consult details Narrative: 68yo F for Upper Endoscopy and Colonoscopy [facility], [facility] Active Problems Active Problems: All Active Problems Esophageal dysmotility (Acute) Esophageal stricture (Acute) Constipation (Acute) Dysphagia (Acute) Urge urinary incontinence (Acute) GERD (gastroesophageal reflux disease) (Acute) Depression with anxiety (Acute) Pure hypercholesterolemia (Acute) Arthrosis of knee (Acute) Tubular adenoma of colon (Acute) Rhinitis (Acute) Impaired glucose tolerance (Acute) Family history of polyps in the colon (Acute) High cholesterol (Acute) Hypertension (Acute) Asthma (Acute) Past Medical History Medical History Hemorrhoids Conjunctivitis Neck pain Skin mole Syncope Hair loss Skin lesion Right knee pain Pre-op examination Physical exam Colon cancer screening Rhinitis Impaired glucose tolerance High cholesterol Hypertension Asthma Family History Family History Father No problems noted. Mother Hypertension Stroke Maternal Grandmother No problems noted. Maternal Grandfather No problems noted. Paternal Grandmother Diabetes Paternal Grandfather No problems noted. Paternal Aunt Cancer Other History of total abdominal hysterectomy and bilateral salpingo- oophorectomy Surgical History Surgical History Hx of colonoscopy History of total abdominal hysterectomy and bilateral salpingo-oophorectomy Social History Social History Household Members: None Housing: Other Housing Other:: Basement Are you a primary child care associate teacher to a significant other at home: No Do you presently have visiting nurse or other home services: No Alcohol intake: current Alcohol intake frequency: holidays/special occasions only Alcohol type: beer Patient Tobacco Use Status: Former Tobacco user Tobacco use type: Cigarette e-Cigarette/Vaping Use: Never Used Second Hand Smoke Exposure: No Use of substances other than those prescribed or required for medical reasons: No Substance Use Type: Marijuana Have you been hit, kicked, punched, or otherwise hurt by someone within the past year? If so, by whom?: No Advance Directives: No Advance Directives Information Provided: Yes Recently lost weight without trying: No Nutrition Risks: No Nutritional Risk service: No Current occupational status: disabled Cognitive needs: No Hearing needs: No Vision needs: Yes Meds Allergies Allergy/AdvReac Type Severity Reaction Status Date / Time No Known Allergies Allergy Verified 11/06/23 13:26 [No Known Allergies*] Home Medications ?Medication ?Instructions ?Recorded ?Confirmed ?Last Taken ?Type cyanocobalamin (vitamin B-12) 1,000 mcg PO DAILY 10/02/23 Unknown History 1,000 mcg capsule Assessment and Plan Assessment Anesthesia Assessment: Chart Reviewed Documented by User: Aleksandra Marte MD 12/02/23 13:17 PMFSH Past Medical History Medical History Hemorrhoids Conjunctivitis Neck pain Skin mole Syncope Hair loss Skin lesion Right knee pain Pre-op examination Physical exam Colon cancer screening Rhinitis Impaired glucose tolerance High cholesterol Hypertension Asthma Family History Family History Father No problems noted. Mother Hypertension Stroke Maternal Grandmother No problems noted. Maternal Grandfather No problems noted. Paternal Grandmother Diabetes Paternal Grandfather No problems noted. Paternal Aunt Cancer Other History of total abdominal hysterectomy and bilateral salpingo-oophorec ton Family history of problems with anesthesia: No Surgical History Surgical History Hx of colonoscopy History of total abdominal hysterectomy and bilateral salpingo-oophorectomy History of Problems with Anesthesia: No Social History Social History Household Members: None Housing: Other Housing Other:: Basement Are you a primary child care associate teacher to a significant other at home: No Do you presently have visiting nurse or other home services: No Alcohol intake: current Alcohol intake frequency: holidays/special occasions only Alcohol type: beer Patient Tobacco Use Status: Former Tobacco user Tobacco use type: Cigarette e-Cigarette/Vaping Use: Never Used Second Hand Smoke Exposure: No Use of substances other than those prescribed or required for medical reasons: No Substance Use Type: Marijuana Have you been hit, kicked, punched, or otherwise hurt by someone within the past year? If so, by whom?: No Advance Directives: No Advance Directives Information Provided: Yes Recently lost weight without trying: No Nutrition Risks: No Nutritional Risk service: No Current occupational status: disabled Cognitive needs: No Hearing needs: No Vision needs: Yes Meds Allergies Allergy/AdvReac Type Severity Reaction Status Date / Time No Known Allergies Allergy Verified 11/06/23 13:26 [No Known Allergies*] Home Medications ?Medication ?Instructions ?Recorded ?Confirmed ?Last Taken ?Type cyanocobalamin (vitamin B-12) 1,000 mcg PO DAILY 10/02/23 Unknown History 1,000 mcg capsule Exam Airway Mallampati Class: II TM Dist: >3cm Neck ROM: Full Heart: rrr Assessment and Plan Assessment Anesthesia Assessment: Anesthesia Plan Discussed Final Anesthetic Review Family History of Problems with Anesthesia: No History of Problems with Anesthesia: No NPO: Yes ASA Class: III Final Preanesthetic Review: No Changes in Pt Med Stat, Meds/Allgs Chart Reviewed, Consent Obtained/Reviewed and Anes Risks/Benef Reviewed Patient Risk: Low Procedure Risk: Low Anesthetic Plan Anesthetic Plan: MAC: Disposition: Standard PACU
[2023-12-02 12:45] VITALS: BP 151/70; PULSE 74; RESP 16; TEMP 36.3; O2SAT 98; BMI 25.8
--- NOTE | 2023-12-02 12:48 | MHC.SHP ---
Pre-Procedural Eval Section A - 24 Hr Update-Section A only Date of Service: 12/02/23 Section B - Complete if H&P > 30 days Chief Complaint: dysphagia,constipation,hx colon polyps, Relevant Family History (Specify if Yes): No Relevant Social History: None Present Medications: see Short Stay Collaborative assessment Medical History: Significant History (Hemorrhoids Conjunctivitis Neck pain Skin mole Syncope Hair loss Skin lesion Right knee pain Pre-op examination Physical exam Colon cancer screening Rhinitis Impaired glucose tolerance High cholesterol Hypertension Asthma) History of Previous Operations: Relevant previous surgery/procedure and date(s) (Hx of colonoscopy History of total abdominal hysterectomy and bilateral salpingo-oophorectomy) Allergies: Allergies Allergy/AdvReac Type Severity Reaction Status Date / Time No Known Allergies Allergy Verified 11/06/23 13:26 [No Known Allergies*] Review of Systems Sugical H&P ROS: Negative: Constitution, Cardiovascular, Respiratory, Neurological, Psychiatric, Hem-Onc, Allergic/Immunologic, Gastrointestinal, Genitourinary, Musculoskeletal, Integumentary, Endocrine and Eyes/Ears/Nose/Throat Exam Surgical H&P Exam: Normal: HEENT, Normal: Heart, Normal: Lungs, Normal: Extremities, Normal: Abdomen, Normal: Skin and Normal: Neurological Plan Diagnosis/Plan: Unchanged I have reviewed the history and physical and performed a pertinent physical examination on my patient. No changes have occurred unless specified. Time Spent With Patient Time: Total time managing care of this patient today ____ minutes.
[2023-12-02] MEDS: Lactated Ringers 1,000 ML 100 ML IVCONT (13:06)
--- NOTE | 2023-12-02 13:31 | P.OP_ITS ---
Operative Note Operative Note Date of Service: 12/02/23 Narrative: Operative Information Procedure Description: EGD, Colonoscopy Indication: dysphagia, gerd, colon screening Anesthesia: MAC FLEXIBLE TRANSORAL UPPER GASTROINTESTINAL ENDOSCOPY AND COLONOSCOPY PROCEDURE NOTE UPPER ENDOSCOPY Consent: Indications for the procedure and potential complications of bleeding, perforation, reaction to medications and missed diagnosis were discussed with the patient and informed consent was obtained. Instrument: Olympus GIF H 190 J mid size upper endoscope Monitoring: Vital signs and clinical assessment, continuous EKG monitoring, Pulse oximetry, Carbon Dioxide monitoring and blood pressure monitoring were done throughout the procedure. Procedure: The patient was placed in the left lateral decubitis position and pre-procedure medications were administered and a bite block was placed. The endoscope was inserted into the mouth and advanced under direct vision to the third part of duodenum. A careful inspection was made as the upper endoscope was withdrawn including a retroflexed examination of the proximal stomach; Findings and interventions are described below. Findings: Larynx:normal Esophagus: GE junction at 32 cm, diaphragm hiatus at 37 cm, consistent with fixed hiatal hernia, with tight inflammed schatzki which was stretched with balloon to 18 mm with some heme noted, UES also stretched to 18 mm. Furrowing of mucosa noted and bx taken from distal esophagus Stomach: Patchy erythema. Biopsies were obtained. Grade 2 flap valve on retroflexed examination of the cardia. Duodenum: Normal bulb and descending duodenum, bx taken Intervention: Biopsies as noted above, balloon dilation COLONOSCOPY Instrument: Olympus variable stiffness pediatric scope 190L Colonoscopy Monitoring: Vital signs and clinical assessment, continuous EKG monitoring, Pulse oximetry, Carbon Dioxide monitoring and blood pressure monitoring were done throughout the procedure. Colon withdrawal time was 15 minutes. Procedure: The patient was placed in the left lateral decubitis position and pre-procedure medications were administered. After a digital rectal examination of the ano-rectum, the video colonoscope was inserted into the rectum and advanced through the colon to the cecum/TI. The colonoscope was slowly withdrawn in a retrograde panoramic fashion and the colon mucosa was carefully examined including a retroflexed view of the rectum. Findings and interventions are described below. Procedure Difficulty:moderate Findings: Terminal Ileum-not intubated due to looping Cecum: 6-7 mm sessile polyp removed with cold forceps Ascending Colon: normal Transverse Colon -normal Descending Colon: 5-7 mm sessile polyp removed with cold forceps Sigmoid Colon: moderate diverticulosis, 10-12 mm sessile polyp removed with cold snare and x 1 clip applied for hemostasis Rectum: Retroflexion with small internal hemorrhoids, grade I Anorectum - normal Colon preparation: [place] Bowel Preparation Scale Right colon; 1-2 Transverse colon: 2- Left colon; 1-2 (0 = Unprepared colon segment with mucosa not seen due to solid stool that cannot be cleared. 1 = Portion of mucosa of the colon segment seen, but other areas of the colon segment not well seen due to staining, residual stool and/or opaque liquid. 2 = Minor amount of residual staining, small fragments of stool and/or opaque liquid, but mucosa of colon segment seen well. 3 = Entire mucosa of colon segment seen well with no residual staining, small fragments of stool or opaque liquid) Impression and Post Procedure Diagnosis: Endoscopy Findings: schatzki ring hiatal hernia gastritis Colonoscopy Findings: diverticulosis colon polyps internal hemorrhoids Plan: Await Pathology results Repeat Colonoscopy in 1-2 years or earlier if clinically indicated High fiber diet leaflet avoid straining at stool, epsom salts and sitz bath, anusol supps or cream ensure compliance with PPI consider referral for hernia repair Above findings were reviewed with the patient and relevant handouts were provided if indicated.
[2023-12-02 14:16] VITALS: BP 102/64; PULSE 74; RESP 16; TEMP 36.6; O2SAT 93
[2023-12-02 14:31] VITALS: BP 120/64; PULSE 63; RESP 16; TEMP 36.5; O2SAT 98
== END 2023-12-02 15:22 | disposition home or self-care (01) ==
PROVIDERS: PCP Internal Medicine; Visit Provider Internal Medicine Gastroenterology
PROC: (CPT 45385; principal; 2023-12-02 13:10)
DX: Z12.11 Encounter for screening for malignant neoplasm of colon (principal); Z86.010 Personal history of colon polyps; D12.0 Benign neoplasm of cecum; D12.4 Benign neoplasm of descending colon; D12.5 Benign neoplasm of sigmoid colon; K57.30 Diverticulosis of large intestine without perforation or abscess without bleeding; K64.0 First degree hemorrhoids; K59.00 Constipation, unspecified; R13.10 Dysphagia, unspecified; K21.9 Gastro-esophageal reflux disease without esophagitis; K22.2 Esophageal obstruction; K29.80 Duodenitis without bleeding; K44.9 Diaphragmatic hernia without obstruction or gangrene; I10 Essential (primary) hypertension; E78.00 Pure hypercholesterolemia, unspecified; R73.02 Impaired glucose tolerance (oral); J45.909 Unspecified asthma, uncomplicated; Z79.899 Other long term (current) drug therapy; Z98.890 Other specified postprocedural states; Z87.891 Personal history of nicotine dependence
CPT/HCPCS: 45385; 45380; 43249; 43239; 88305; 88313; 88342; J2250; J2704

== ENCOUNTER → 2023-12-02 11:13 | Outpatient (BNV) | payer OTHER, SELFPAY | PROVIDERS: PCP Internal Medicine; Visit Provider Internal Medicine Gastroenterology | DX: Z12.11 Encounter for screening for malignant neoplasm of colon (principal); K63.5 Polyp of colon; K57.90 Diverticulosis of intestine, part unspecified, without perforation or abscess without bleeding; K64.8 Other hemorrhoids; K22.2 Esophageal obstruction; K44.9 Diaphragmatic hernia without obstruction or gangrene; K29.70 Gastritis, unspecified, without bleeding | CPT/HCPCS: 43239; 43249; 45380; 45385 ==

== ENCOUNTER 2023-12-15 11:37 | Outpatient (REF) | payer OTHER, SELFPAY ==
[2023-12-15 14:41] LABS: Alanine Aminotransferase 18 U/L (0-31); Albumin Level 4.1 g/dL (3.5-5.0); Alkaline Phosphatase 106 U/L (39-117); Anion Gap 10 (12-20); Aspartate Amino Transferase 19 U/L (5-31); Bilirubin Total 0.3 mg/dL (0.0-1.0); Blood Urea Nitrogen 15 mg/dL (9-16); Calcium 9.7 mg/dL (8.4-10.2); Carbon Dioxide 27 mmol/L (22-29); Chloride 109 mmol/L (96-108); Estimated Glomerular Filt Rate > 60; Glucose Random 106 mg/dL (60-115); Potassium 4.4 mmol/L (3.3-5.1); Sodium 142 mmol/L (135-145)
== END 2023-12-15 11:38 | disposition home or self-care (01) ==
LOC: HO.LAB 11:37
PROVIDERS: PCP Internal Medicine; Visit Provider Nurse Practitioner
DX: I10 Essential (primary) hypertension (principal); K22.4 Dyskinesia of esophagus; K22.2 Esophageal obstruction; R13.10 Dysphagia, unspecified; K21.9 Gastro-esophageal reflux disease without esophagitis; Z79.899 Other long term (current) drug therapy
CPT/HCPCS: 36415; 80053; 99212

== ENCOUNTER 2023-12-15 11:37 | Outpatient (AMB) | payer OTHER, SELFPAY ==
[2023-12-15 11:40] VITALS: BP 134/69; PULSE 73; BMI 26.0
--- NOTE | 2023-12-15 11:40 | A.OFFVIS_ITS ---
Vital Signs 12/15/23 11:40 Height 5 ft 5 in Weight 156 lb 8.451 oz BMI 26.0 BP 134/69 Blood Pressure Location Rt brachial Position Sitting Pulse 73 Intake Visit Reasons: S/p EGD and colonoscopy Intake Note: Lulu presents to in office follow up s/p EGD and colonoscopy. CC: Patient reports that she has to take the Senna in order to have a BM. She also is requesting to have Omeprazole switch to Famotidine. 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 Accompanied by: Self / Same As Patient Allergies No Known Allergies [No Known Allergies*] Allergy (Verified 12/24/23 17:08) HPI HPI S/p EGD and colonoscopy: Details: Assessment & Plan (1) Esophageal dysmotility: Code(s): K22.4 - Dyskinesia of esophagus Category: Medical (2) Esophageal stricture: Code(s): K22.2 - Esophageal obstruction Category: Medical (3) Dysphagia: Code(s): R13.10 - Dysphagia, unspecified Category: Medical (4) GERD (gastroesophageal reflux disease): Code(s): K21.9 - Gastro-esophageal reflux disease without esophagitis Category: Medical Plan Peruvian #[id number] Daysi She is aware of her upcoming EGD/colonoscopy 12/01. She says her swallowing is a little better and she continues on her omeprazole. Her disorganized swallowing could be from this or, multifactorial. She says I have been praying to God to take the problem away. She lets me know - as she is letting all of her providers know - that she is a FULL RESUSCITATION. Keep appt after procedures 12/14 for further assessment. EGD/COLONOSCOPY 12/03/23 Larynx:normal Esophagus: GE junction at 32 cm, diaphragm hiatus at 37 cm, consistent with fixed hiatal hernia, with tight inflammed schatzki which was stretched with balloon to 18 mm with some heme noted, UES also stretched to 18 mm. Furrowing of mucosa noted and bx taken from distal esophagus Stomach: Patchy erythema. Biopsies were obtained. Grade 2 flap valve on retroflexed examination of the cardia. Duodenum: Normal bulb and descending duodenum, bx taken Findings: Terminal Ileum-not intubated due to looping Cecum: 6-7 mm sessile polyp removed with cold forceps Ascending Colon: normal Transverse Colon -normal Descending Colon: 5-7 mm sessile polyp removed with cold forceps Sigmoid Colon: moderate diverticulosis, 10-12 mm sessile polyp removed with cold snare and x 1 clip applied for hemostasis Rectum: Retroflexion with small internal hemorrhoids, grade I Anorectum - normal Impression and Post Procedure Diagnosis: Endoscopy Findings: schatzki ring hiatal hernia gastritis Colonoscopy Findings: diverticulosis colon polyps internal hemorrhoids Plan: Await Pathology results Repeat Colonoscopy in 1-2 years or earlier if clinically indicated High fiber diet leaflet avoid straining at stool, epsom salts and sitz bath, anusol supps or cream ensure compliance with PPI consider referral for hernia repair BIOPSY Received: 12/03/23 Diagnosis A. Duodenum, biopsy: Chronic active duodenitis. B. Stomach, biopsy: Antral-type and oxyntic mucosa with moderate chronic inactive inflammation; no Helicobacter organisms seen. C. Esophagus, distal, biopsy: Active esophagitis (maximum eosinophil count 21 per high powered field). D. Cecum, polypectomy: Tubular adenoma; negative for high-grade dysplasia or carcinoma. E. Colon, descending, polypectomy: Fragments of tubular adenoma; negative for high-grade dysplasia or carcinoma. F. Colon, sigmoid, polypectomy: Fragments of tubulovillous adenoma; negative for high-grade dysplasia or carcinoma TODAYS VISIT Peruvian #Nirmala Live agreeable to 1 year f/y. The procedure was well tolerated. The results were explained and the patient is agreeable to the follow-up interval as stated. The bowel pattern has returned to normal. Education was provided to tell any 1st degree relatives about their findings to be sure that they are screened by age 45. Educated that they will be put on a recall list when it is time for their repeat scope but should they move out of state or away from the hospital they will need to remember along with their primary to repeat the procedure in a timely fashion to avoid any adverse complications. Dysphagia resolved. However, not taking her omeprazole qd as fearful, my sisters doctor told her it would hurt her kidneys. Educated, agrees to omepraz ole daily and will monitor renal fxn. Getting baseline today ROV 3 mos. PFSH Medical History Hemorrhoids Conjunctivitis Neck pain Skin mole Syncope Hair loss Skin lesion Right knee pain Pre-op examination Physical exam Colon cancer screening Rhinitis Impaired glucose tolerance High cholesterol Hypertension Asthma Surgical History Hx of colonoscopy History of total abdominal hysterectomy and bilateral salpingo-oophorectomy Family History Father No problems noted. Mother Hypertension Stroke Maternal Grandmother No problems noted. Maternal Grandfather No problems noted. Paternal Grandmother Diabetes Paternal Grandfather No problems noted. Paternal Aunt Cancer Other History of total abdominal hysterectomy and bilateral salpingo- oophorectomy Social History Household Members: None Housing: Other Housing Other:: Basement Are you a primary interior plant caretaker to a significant other at home: No Do you presently have visiting nurse or other home services: No Alcohol intake: current Alcohol intake frequency: holidays/special occasions only Alcohol type: beer Patient Tobacco Use Status: Former Tobacco user Tobacco use type: Cigarette e-Cigarette/Vaping Use: Never Used Second Hand Smoke Exposure: No Substance Use Type: Marijuana service: No Current occupational status: disabled Cognitive needs: No Hearing needs: No Vision needs: Yes Review of Systems Const Denies fatigue, Denies fever(s), Denies night sweats, Denies poor appetite and Denies weight loss ENT Reports Normal hearing present, Denies dental pain, Denies dysphagia, Denies hearing loss, Denies mouth pain, Denies odynophagia, Denies throat swelling, Denies tongue swelling and Reports other (Dentition adequate) Card Reports no additional complaints Resp Reports no additional complaints GI Details: Denies abdominal pain, Denies melena, Denies bloating, Denies hematochezia, Denies constipation, Denies GI cramping, Denies dysphagia, Denies excessive fl atus, Denies early satiety, Reports heartburn, Denies diarrhea, Denies nausea, Denies odynophagia, Denies vomiting and Denies hematemesis Skin/Breast Denies pruritus, Denies lesions, Denies rash and Denies jaundice Neuro Reports Normal hearing present and Denies Abnormal speech present Endo Denies fatigue Aller/Immun Denies throat swelling and Denies tongue swelling Physical Exam Vital Signs: Last Vital Signs Pulse 73 12/15/23 11:40 BP 134/69 12/15/23 11:40 BMI result Body Mass Index 26.0 Const General: cooperative, no acute distress, well developed and well groomed Nutritional Appearance: average body habitus and well nourished Orientation/consciousness: oriented to person, oriented to place and oriented to time Limitations: language barrier HEENT Head: Yes normocephalic and Yes atraumatic Eyes General: appearance normal, both eyes and all related structures Pupils: Equal, round and reactive pupils present Neck Neck: Yes normal visual inspection and Yes no lymphadenopathy Thyroid: Thyroid normal Resp Effort & Inspection: normal respiratory effort and able to speak in complete sentences Auscultation: clear to auscultation bilaterally Cardio Rate: regular rate Rhythm: regular rhythm Heart sounds: Normal, physiologic split S2 sound present Peripheral pulses: radial pulses present and posterior tibial pulses present GI Inspection: No distended and No Abdominal panniculus present Palpation (GI): Soft to palpation, nontender, no guarding, not rigid and No hepatosplenomegaly present Percussion: Yes normal to percussion Auscultation: normal bowel sounds Rectal Exam - Female: deferred Skin General skin exam: no rashes or lesions noted, turgor normal, skin not dry, no jaundice, No spider nevi and no striae Rashes: no rashes Nails: normal Neuro General: oriented to person, oriented to place and oriented to time Cranial nerves: Yes Equal, round and reactive pupils present and Yes Normal hearing present Speech: No Abnormal speech present Extrem General: Yes normal to inspection, No clubbing, No cyanosis and No edema Psych Appearance: grossly normal and well kempt Mental Status: mental status grossly normal Speech and movement: Normal speech and movement present Affect: normal affect Attitude: cooperative Thought process: Normal thought process present and not confabulating Thought content: Normal thought content present Insight: Limited insight present (Psych) Judgement: Limited judgement present (Psych) Results Reviewed Results Reviewed: EGD/COLONOSCOPY 12/03/23 Larynx:normal Esophagus: GE junction at 32 cm, diaphragm hiatus at 37 cm, consistent with fixed hiatal hernia, with tight inflammed schatzki which was stretched with balloon to 18 mm with some heme noted, UES also stretched to 18 mm. Furrowing of mucosa noted and bx taken from distal esophagus Stomach: Patchy erythema. Biopsies were obtained. Grade 2 flap valve on retroflexed examination of the cardia. Duodenum: Normal bulb and descending duodenum, bx taken Findings: Terminal Ileum-not intubated due to looping Cecum: 6-7 mm sessile polyp removed with cold forceps Ascending Colon: normal Transverse Colon -normal Descending Colon: 5-7 mm sessile polyp removed with cold forceps Sigmoid Colon: moderate diverticulosis, 10-12 mm sessile polyp removed with cold snare and x 1 clip applied for hemostasis Rectum: Retroflexion with small internal hemorrhoids, grade I Anorectum - normal Impression and Post Procedure Diagnosis: Endoscopy Findings: schatzki ring hiatal hernia gastritis Colonoscopy Findings: diverticulosis colon polyps internal hemorrhoids Plan: Await Pathology results Repeat Colonoscopy in 1-2 years or earlier if clinically indicated High fiber diet leaflet avoid straining at stool, epsom salts and sitz bath, anusol supps or cream ensure compliance with PPI consider referral for hernia repair BIOPSY Received: 12/03/23 Diagnosis A. Duodenum, biopsy: Chronic active duodenitis. B. Stomach, biopsy: Antral-type and oxyntic mucosa with moderate chronic inactive inflammation; no Helicobacter organisms seen. C. Esophagus, distal, biopsy: Active esophagitis (maximum eosinophil count 21 per high powered field). D. Cecum, polypectomy: Tubular adenoma; negative for high-grade dysplasia or carcinoma. E. Colon, descending, polypectomy: Fragments of tubular adenoma; negative for high-grade dysplasia or carcinoma. F. Colon, sigmoid, polypectomy: Fragments of tubulovillous adenoma; negative for high-grade dysplasia or carcinom Assessment & Plan Assessment & Plan (1) Hypertension: Code(s): I10 - Essential (primary) hypertension Category: Medical Qualifiers: Hypertension type: essential hypertension Qualified Code(s): I10 - Essential (primary) hypertension Plan [place]ian #Nirmala Live agreeable to 1 year f/y. The procedure was well tolerated. The results were explained and the patient is agreeable to the follow-up interval as stated. The bowel pattern has returned to normal. Education was provided to tell any 1st degree relatives about their findings to be sure that they are screened by age 45. Educated that they will be put on a recall list when it is time for their repeat scope but should they move out of state or away from the hospital they will need to remember along with their primary to repeat the procedure in a time ly fashion to avoid any adverse complications. Dysphagia resolved. However, not taking her omeprazole qd as fearful, my sisters doctor told her it would hurt her kidneys. Educated, agrees to omepra zole daily and will monitor renal fxn. Getting baseline today ROV 3 mos. Orders: Orders Comprehensive Met. Panel 12/15/23 I10 - Essential (primary) hypertension Medications: Refilled omeprazole 40 mg PO DAILY 30 caps 3RF 30 days Coding Level of Care Code Est Pt Level 4 (91411) Diagnoses Essential hypertension I10 Hypertension type: essential hypertension Time Spent (min) 32
== END 2023-12-15 13:17 | disposition home or self-care (01) ==
PROVIDERS: PCP Internal Medicine; Visit Provider Nurse Practitioner
DX: I10 Essential (primary) hypertension (principal)
CPT/HCPCS: 99214

== ENCOUNTER 2023-12-24 16:50 | Outpatient (AMB) | payer OTHER, SELFPAY ==
[2023-12-24 17:02] VITALS: BP 146/80; BMI 26.0
--- NOTE | 2023-12-24 17:02 | MHC.PC.OV ---
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 Accompanied by: Self / Same As Patient Allergies No Known Allergies [No Known Allergies*] Allergy (Verified 12/24/23 17:08) Medication List - Last Reconciled 12/24/23 by Renetta Argueta MD albuterol sulfate 90 mcg/actuation (Ventolin HFA) 2 puffs inhalation Q6H PRN 30 days cyanocobalamin (vitamin B-12) 1,000 mcg PO DAILY cyclobenzaprine 10 mg PO BEDTIME enalapril maleate 5 mg PO DAILY gabapentin 100 mg PO BEDTIME 90 days Grab bar As directed hydrocortisone 2.5% (Proctosol HC) 1 appl AR BID incontinence pad, liner, disp Use 1 pad 6 times a day [id number] 3.5-10,000-10 mg-unit-mg/mL 1 drp ophthalmic (eye) QID 5 days omeprazole 40 mg PO DAILY 30 days sennosides (Senna Laxative) 17.2 mg (2 x 8.6 mg) PO BEDTIME simvastatin 20 mg PO BEDTIME sumatriptan succinate 25 mg PO Q2-4H PRN 30 days tobramycin 0.3% 1 drp ophthalmic (eye) Q4H 7 days underpads (Bed Underpads) Use 1 pad once a day Tobacco use date assessed: 04/09/23 Fall risk assessment: No Falls in past year Last assessed Fall Risk: 12/24/23 Dental Screening Dental Screen Date: 06/10/23 HPI HPI Comments History of Present Illness Details This is a 68-year-old female with hypertension, pure hypercholesterolemia, GERD and lumbar degenerative disc disease that comes today for follow-up on her conditions. Blood pressure stable. On statins for elevated cholesterol. Has severe GERD and was placed on PPIs by Gastroenterology which recently did an endoscopy. Has lumbar degenerative disc disease and gabapentin does not relieved the pain completely therefore I will increase from 100 mg to 300 mg. She will also benefit from a recliner for her lumbar degenerative disc disease. No chest pain or shortness on breath. [facility] Medical History (Updated 12/24/23 @ 17:14 by Renetta Argueta MD) Hemorrhoids Conjunctivitis Neck pain Skin mole Syncope Hair loss Skin lesion Right knee pain Pre-op examination Physical exam Colon cancer screening Rhinitis Impaired glucose tolerance High cholesterol Hypertension Asthma Surgical History Hx of colonoscopy History of total abdominal hysterectomy and bilateral salpingo-oophorectomy Family History Father No problems noted. Mother Hypertension Stroke Maternal Grandmother No problems noted. Maternal Grandfather No problems noted. Paternal Grandmother Diabetes Paternal Grandfather No problems noted. Paternal Aunt Cancer Other History of total abdominal hysterectomy and bilateral salpingo-oophorectomy Social History Household Members: None Housing: Other Housing Other:: Basement Are you a primary acute care nurse to a significant other at home: No Do you presently have visiting nurse or other home services: No Alcohol intake: current Alcohol intake frequency: holidays/special occasions only Alcohol type: beer Patient Tobacco Use Status: Former Tobacco user Tobacco use type: Cigarette e-Cigarette/Vaping Use: Never Used Second Hand Smoke Exposure: No Substance Use Type: Marijuana service: No Current occupational status: disabled Cognitive needs: No Hearing needs: No Vision needs: Yes Questionnaire Thrive Questionnaire Date Thrive assessed: 04/09/23 Are you currently unemployed and looking for a job?: I choose not to answer this question DANIEL-7 AMB Questionnaire DANIEL-7 Date DANIEL - 7 assessed: 06/10/23 Source: Developed by Drs. Michel Garcia, Deysi Gerard, Torito Mireles and colleagues, with an educational malia from [employer]. Review of Systems Const All systems reviewed & are unremarkable except as noted in HPI and below Card Denies chest pain at rest, Denies chest pain with activity, Denies edema, Denies irregular heart rhythm, Denies claudication, Denies dyspnea, Denies dyspnea on exertion, Denies orthopnea, Denies paroxysmal nocturnal dyspnea and Denies slow heart rate Resp Denies cough, Denies dyspnea and Denies dyspnea on exertion GI Denies abdominal pain, Denies change in bowel habits, Denies excessive flatus, Denies nausea and Denies vomiting Denies urinary incontinence, Denies urinary hesitancy and Denies urinary urgency Musc Denies abnormal gait, Denies atrophy, Denies deformity and Denies limited range of motion Skin/Breast Denies bleeding lesions, Denies changing lesions and Denies rash Neuro Denies abnormal gait, Denies behavioral changes and Denies lack of coordination Psych Denies behavioral changes Physical exam (Primary Care) Vital Signs: Last Vital Signs BP 146/80 H 12/24/23 17:02 BMI result Body Mass Index 26.0 Tobacco/Smoking Status: Tobacco use Status Tobacco use date assessed 04/09/23 12/24/23 17:05 Patient Tobacco Use Status Former Tobacco user 12/24/23 17:05 Tobacco use type Cigarette 12/24/23 17:05 e-Cigarette/Vaping Use Never Used 12/24/23 17:05 Thrive Assessment: Date of Thrive Assessment Date Thrive assessed 04/09/23 12/24/23 17:05 Resp Effort & Inspection: normal respiratory effort Auscultation: clear to auscultation bilaterally Cardio Jugular venous distension: no JVD Rate: regular rate Rhythm: regular rhythm Heart sounds: S1 normal heart sound present and S2 normal heart sound present Extrem General: Yes full ROM Assessment and Plan Assessment & Plan (1) Lumbar degenerative disc disease: Code(s): M51.36 - Other intervertebral disc degeneration, lumbar region Plan: Increase gabapentin. (2) Pure hypercholesterolemia: Code(s): E78.00 - Pure hypercholesterolemia, unspecified Plan: Continue statins. (3) GERD (gastroesophageal reflux disease): Code(s): K21.9 - Gastro-esophageal reflux disease without esophagitis Plan: Continue PPIs. Follow-up with Gastroenterology. (4) Hypertension: Code(s): I10 - Essential (primary) hypertension Qualifiers: Hypertension type: essential hypertension Qualified Code(s): I10 - Essential (primary) hypertension Plan: Continue enalapril. Blood pressure goal is equal or less than 130/80. Orders: Orders Comprehensive [place]. Panel Fast 6 Months R73.02 - Impaired glucose tolerance (oral) Vitamin D 25-OH (D2 and D3) 6 Months E55.9 - Vitamin D deficiency, unspecified IRON PROFILE 6 Months D64.9 - Anemia, unspecified Lipid Panel 6 Months E78.5 - Hyperlipidemia, unspecified Vitamin B12 and Folate 6 Months E53.8 - Deficiency of other specified B group vitamins Complete Blood Count Auto Diff 6 Months D64.9 - Anemia, unspecified Medications: New [recliner] As directed 1 ea 0RF M41.9 - Scoliosis, unspecified, M51.36 - Other intervertebral disc degeneration, lumbar region gabapentin 300 mg PO BEDTIME 30 caps 0RF 30 days Refilled incontinence pad, liner, disp Use 1 pad 6 times a day 120 ea 11RF N39.41 - Urge incontinence Discontinued gabapentin Discontinued Reason: Patient Completed Course 100 mg PO BEDTIME 90 days 90 caps 1RF Coding Level of Care Code Est Pt Level 4 (79151) Complex EM visit Add On G2211 Diagnoses Lumbar degenerative disc disease M51.36 Pure hypercholesterolemia E78.00 GERD (gastroesophageal reflux disease) K21.9 Essential hypertension I10 Hypertension type: essential hypertension Time Spent (min) 23
== END 2023-12-24 17:15 | disposition home or self-care (01) ==
PROVIDERS: PCP Internal Medicine; Visit Provider Internal Medicine
DX: M51.36 Other intervertebral disc degeneration, lumbar region (principal); E78.00 Pure hypercholesterolemia, unspecified; K21.9 Gastro-esophageal reflux disease without esophagitis; I10 Essential (primary) hypertension

== ENCOUNTER → 2023-12-24 16:50 | Outpatient (BNVA) | payer OTHER, SELFPAY | PROVIDERS: PCP Internal Medicine; Visit Provider Internal Medicine | DX: M51.36 Other intervertebral disc degeneration, lumbar region (principal); E78.00 Pure hypercholesterolemia, unspecified; K21.9 Gastro-esophageal reflux disease without esophagitis; I10 Essential (primary) hypertension | CPT/HCPCS: 99212 ==

== ENCOUNTER 2024-03-23 13:19 | Outpatient (REF) | payer OTHER, SELFPAY | END 2024-03-23 13:20 | disposition home or self-care (01) | LOC: HO.MAMMO 13:19 | PROVIDERS: PCP Internal Medicine; Visit Provider Internal Medicine | DX: Z12.31 Encounter for screening mammogram for malignant neoplasm of breast (principal) | CPT/HCPCS: 77063; 77067 ==

== ENCOUNTER → 2024-03-23 14:00 | Outpatient (BNV) | payer OTHER, SELFPAY | PROVIDERS: PCP Internal Medicine; Visit Provider Internal Medicine | DX: Z12.31 Encounter for screening mammogram for malignant neoplasm of breast (principal) | CPT/HCPCS: 77063; 77067 ==

== ENCOUNTER 2024-06-30 17:13 | Outpatient (AMB) | payer OTHER, SELFPAY ==
--- NOTE | 2024-06-30 17:16 | MHC.PC.OV ---
Vital Signs 06/30/24 17:17 Height 5 ft 5 in Weight 157 lb BMI 26.1 BP 132/76 Blood Pressure Location Lt brachial Position Sitting Intake Visit Reasons: Annual Exam Intake Note: Patient here for an annual physical exam Vocational Evaluator Required: No Accompanied by: Self / Same As Patient Allergies No Known Allergies [No Known Allergies*] Allergy (Verified 06/30/24 17:17) Medication List - Last Reconciled 06/30/24 by Renetta Argueta MD albuterol sulfate 90 mcg/actuation (Ventolin HFA) 2 puffs inhalation Q6H PRN 30 days cyanocobalamin (vitamin B-12) 1,000 mcg PO DAILY cyclobenzaprine 10 mg PO BEDTIME enalapril maleate 20 mg PO DAILY 90 days esomeprazole magnesium 20 mg PO DAILY gabapentin 300 mg PO BEDTIME 30 days Grab bar As directed hydrocortisone 2.5% (Proctosol HC) 1 appl MA BID incontinence pad, liner, disp Use 1 pad 6 times a day mepjusar-wnkkrfxbl-XX 3.5-10,000-10 mg-unit-mg/mL 1 drp ophthalmic (eye) QID 5 days [recliner As directed] sennosides (Senna Laxative) 17.2 mg (2 x 8.6 mg) PO BEDTIME simvastatin 20 mg PO BEDTIME sumatriptan succinate 50 mg PO Q2-4H PRN 30 days tobramycin 0.3% 1 drp ophthalmic (eye) Q4H 7 days underpads (Bed Underpads) Use 1 pad once a day Tobacco use date assessed: 06/30/24 Fall risk assessment: No Falls in past year Last assessed Fall Risk: 06/30/24 Dental Screening Dental Screen Date: 06/30/24 Did you have a dental visit in the last 12 months?: Yes Did you have a dental problem in the last 6 months where you did not have access to dental care?: No Was dental information given to patient?: Patient has dentist HPI HPI Comments History of Present Illness Details The patient is a 69-year-old female presenting for a wellness visit and management of multiple chronic conditions including knee pain. Her medical history is notable for hypertension, for which she is currently on Enalapril. The patient also suffers from gastroesophageal reflux disease and has been managing it with Omeprazole. Despite being on Gabapentin, she reports ineffective pain management. The possibility of adjusting her Gabapentin dosage was discussed. She describes intermittent knee pain ebenezer to locked bones, contributing to discomfort, albeit not persistently. A history of hysterectomy, performed due to fibroids, and a need to evaluate osteoporosis due to absent bone densitometry, was discussed. The patient manages migraines with Sumatriptan and elevated cholesterol with Simvastatin. Her depression seems largely situational and related to her pain, reflected by a PHQ-9 result of 8, yet she does not currently seek professional support. The patient has a history of Tubulovillous Adenoma, requiring a recent colonoscopy due to a prior ulcer. Family history includes maternal hypertension with stroke consequences. She has quit smoking and drinks alcohol sporadically, around once per month. - Need for repeat Pneumonia vaccine due to first dose pre-64 years. - Last colonoscopy was in December last year for Tubulovillous Adenoma. - Mammography completed in March. - Bone densitometry is planned to evaluate for osteoporosis. - Patient reported mild depression and PHQ-9 score of 8. - Discussion regarding pain management options for knee pain. [facility] Medical History (Updated 07/01/24 @ 07:16 by Renetta Argueta MD) Physical exam Right knee pain Hemorrhoids Conjunctivitis Neck pain Skin mole Syncope Hair loss Skin lesion Pre-op examination Colon cancer screening Rhinitis Impaired glucose tolerance High cholesterol Hypertension Asthma Surgical History Hx of colonoscopy History of total abdominal hysterectomy and bilateral salpingo-oophorectomy Family History Father No problems noted. Mother Hypertension Stroke Maternal Grandmother No problems noted. Maternal Grandfather No problems noted. Paternal Grandmother Diabetes Paternal Grandfather No problems noted. Paternal Aunt Cancer Other History of total abdominal hysterectomy and bilateral salpingo-oophorectomy Social History Household Members: None Housing: Other Housing Other:: Basement Are you a primary acute care registered nurse to a significant other at home: No Do you presently have visiting nurse or other home services: No Alcohol intake: current Alcohol intake frequency: holidays/special occasions only Alcohol type: beer Patient Tobacco Use Status: Former Tobacco user Tobacco use type: Cigarette e-Cigarette/Vaping Use: Never Used Second Hand Smoke Exposure: No Substance Use Type: Marijuana service: No Current occupational status: disabled Cognitive needs: No Hearing needs: No Vision needs: Yes Questionnaire PHQ-9 Over the last 2 weeks, how often have you been bothered by any of the following problems? 1. Little interest or pleasure in doing things: several days 2. Feeling down, depressed, or hopeless: several days 3. Trouble falling or staying asleep, or sleeping too much: several days 4. Feeling tired or having little energy: several days 5. Poor appetite or overeating: several days 6. Feeling bad about yourself - or that you are a failure or have let yourself or your family down: several days 7. Trouble concentrating on things, such as reading the newspaper or watching television: several days 8. Moving or speaking so slowly that other people could have noticed. Or the opposite - being so fidgety or restless that you have been moving around a lot more than usual: several days 9. Thoughts that you would be better off or of hurting yourself in some way: not at all Total score: 8 Depression Screening Interpretation: Positive Depression Screening Follow-up: Existing condition and Follow-up Visit Requested Depression Screening Done: Yes 28516 - PHQ-9 Billing: Yes Source: Developed by Drs. Michel Garcia, Deysi Gerard, Torito Mireles and colleagues, with an educational malia from [employer]. Thrive Questionnaire Date Thrive assessed: 06/30/24 I am a: Patient What is your living situation today?: I choose not to answer this question Within the past 12 months, did the food you bought not last and you didn't have the money to get more?: I choose not to answer this question Within the past 12 months, did you worry whether your food would run out before you got money to buy more?: I choose not to answer this question Do you have trouble paying for medicines?: No Do you have trouble getting transportation to medical appointments?: No Do you have trouble paying your heating and electricity bill?: No Do you have trouble taking care of your child, family member or friend?: I choose not to answer this question Do you have trouble with day-to-day activities such as bathing, preparing meals, shopping, managing finances, etc.?: Yes Are you currently unemployed and looking for a job?: No Are you interested in more education?: I choose not to answer this question Please select the resources that you would like help with: Transportation Currently or been in a relationship where the following occur: No concerns reported THRIVE Score: 0 AUDIT C Alcohol Use Questionnaire (AUDIT-C) 1. How often do you have a drink containing alcohol?: Monthly or less 2. How many drinks containing alcohol do you have on a typical day when you are drinking?: 1 or 2 Total Score: 1 Score Reviewed/Action Taken: No DANIEL-7 AMB Questionnaire DANIEL-7 Date DANIEL - 7 assessed: 06/30/24 Feeling nervous, anxious, or on edge: 0 = Not at all Not being able to stop or control worryin = Not at all Worrying too much about different things: 0 = Not at all Trouble relaxin = Not at all Being so restless that it is hard to sit still: 0 = Not at all Becoming easily annoyed or irritable: 0 = Not at all Feeling afraid as if something awful might happen: 0 = Not at all Total DANIEL-7 score (0-4 normal; 5-9 mild; 10-14 moderate; 15-21 severe): 0 Source: Developed by Drs. Michel Garcia, Deysi Gerard, Torito Mireels and colleagues, with an educational malia from [employer]. DANIEL-7 Assessment Billing DANIEL-7 Assessment Tool: DANIEL-7 Assessment 31689 Review of Systems Const All systems reviewed & are unremarkable except as noted in HPI and below Card Denies chest pain at rest, Denies chest pain with activity, Denies edema, Denies irregular heart rhythm, Denies claudication, Denies dyspnea, Denies dyspnea on exertion, Denies orthopnea, Denies paroxysmal nocturnal dyspnea and Denies slow heart rate Resp Denies cough, Denies dyspnea and Denies dyspnea on exertion Physical exam (Primary Care) Vital Signs: Last Vital Signs BP 132/76 06/30/24 17:17 BMI result Body Mass Index 26.1 Tobacco/Smoking Status: Tobacco use Status Tobacco use date assessed 06/30/24 06/30/24 17:27 Patient Tobacco Use Status Former Tobacco user 06/30/24 17:27 Tobacco use type Cigarette 06/30/24 17:27 e-Cigarette/Vaping Use Never Used 06/30/24 17:27 PHQ-9: PHQ-9 Score PHQ-9: Total score 8 06/30/24 17:53 Depression Screening Interpretation: Positive Depression Screening Follow-up: Existing condition and Follow-up Visit Requested Thrive Assessment: Date of Thrive Assessment Date Thrive assessed 06/30/24 06/30/24 17:27 Currently or been in a relationship where the following occur: No concerns reported Resp Effort & Inspection: normal respiratory effort Auscultation: clear to auscultation bilaterally Cardio Jugular venous distension: no JVD Rate: regular rate Rhythm: regular rhythm Heart sounds: S1 normal heart sound present and S2 normal heart sound present Extrem General: Yes full ROM Immunizations pneumoc 20-marcus conj-dip cr(PF) 0.5 mL IM syringe Performing Provider: Renetta Argueta MD [facility] [place] Administered by: Jahaira Gasca CMA on 06/30/24 17:52 Dose Route Admin Location Dispensed Lot Number Expiration Date NDC [employer]oc[employer] Teacher 0.5 mL IM Left Deltoid 0.5 mL [id number] 06/03/26 4012-2808-45 [employer]/PFIZER VIS Given Date VIS Provided VIS Publication Date 06/30/24 Single Vaccine 21 Eligibility Eligibility Date Funding Source Not [facility] Eligible 06/30/24 Private Coding Level of Care Code Est Pt Level 3 (18011) Est Pt Prev Care >65y(40367) Diagnoses Physical exam Z00.00 Right knee pain M25.561 Left knee pain M25.562 Additional Codes DANIEL-7 Assessment Billing - DANIEL-7 Assessment Tool: DANIEL-7 Assessment 64641 ([id number]) PHQ-9 - 69254 - PHQ-9 Billing: Yes ([id number]) Time Spent (min) 35 Assessment & Plan Assessment & Plan (1) Physical exam: Code(s): Z00.00 - Encounter for general adult medical examination without abnormal findings Category: Medical (2) Right knee pain: Comment: with numbness on lateral side Code(s): M25.561 - Pain in right knee Category: Medical (3) Left knee pain: Code(s): M25.562 - Pain in left knee Category: Medical Plan The plan includes administering the Pneumonia vaccine. Continuing Enalapril for hypertension and Omeprazole for GERD. Gabapentin will be increased to improve pain management, with monitoring of its effects. For migraines, Sumatriptan will be maintained. Simvastatin remains for cholesterol management. We have planned a bone densitometry to assess osteoporosis risk. Although she reports mild depressive symptoms, no additional treatment is scheduled unless symptoms deteriorate. Evaluation by rheumatology might be advisable for knee pain. Colonoscopy findings from last year suggest continuing periodic surveillance. Her family history of stroke is noted for hypertension management considerations. Patient was informed and verbally consented to the use of an ambient scribe for clinic note documentation during this visit. I reviewed the need for a Pneumonia vaccine today given her initial vaccination was before turning 64. We had a detailed discussion on her hypertension and how it is being managed with Enalapril, along with her GERD treatment via Omeprazole. The patient reported ineffective pain relief with Gabapentin, leading to a discussion on altering the dosage, agreeing to initiate a regimen of three times daily. Sumatriptan continues to be effective for migraine management. We discussed osteoporosis screening via bone densitometry and ensured her understanding of the necessity due to missed prior evaluation. She reported a PHQ-9 score of 8, reflecting mild depression, with management focus on monitoring without immediate intervention. We contemplated her family history of stroke concerning continued hypertension management. The implications of her previous Tubulovillous Adenoma were reviewed, with surveillance colonoscopies to follow prior interventions. Orders: Orders XR DEXA axial skeleton 06/30/24 Z78.0 - Asymptomatic menopausal state XR knee RT 2V 06/30/24 M25.561 - Pain in right knee Vitamin D 25-OH Total 06/30/24 E55.9 - Vitamin D deficiency, unspecified Vitamin B12 and Folate 06/30/24 E53.8 - Deficiency of other specified B group vitamins Lipid Panel 06/30/24 E78.5 - Hyperlipidemia, unspecified Comprehensive [place]. Panel Fast 06/30/24 M51.36 - Other intervertebral disc degeneration, lumbar region XR knee LT 2V 06/30/24 M25.562 - Pain in left knee Pneumococcal 20 Immunization 06/30/24 Z23 - Encounter for immunization Referrals Orthopedics Referral M25.561 - Pain in right knee, M25.562 - Pain in left knee Patient Instructions: - Receive the Pneumonia vaccine today. - Continue taking Enalapril and Omeprazole as prescribed. - Increase Gabapentin to three times per day and inform of any changes. - Continue current treatment for migraines with Sumatriptan. - Maintain Simvastatin dosage for cholesterol. - Prepare for a bone densitometry test. - Monitor your depressive symptoms and report any worsening. - Ensure regular follow-ups for ongoing health assessments.
[2024-06-30 17:17] VITALS: BP 132/76; BMI 26.1
== END 2024-06-30 17:51 | disposition home or self-care (01) ==
LOC: HO.HMCH 17:14
PROVIDERS: PCP Internal Medicine; Visit Provider Internal Medicine
DX: Z23 Encounter for immunization (principal)

== ENCOUNTER → 2024-06-30 17:13 | Outpatient (BNVA) | payer OTHER, SELFPAY | PROVIDERS: PCP Internal Medicine; Visit Provider Internal Medicine | DX: Z00.01 Encounter for general adult medical examination with abnormal findings (principal); I10 Essential (primary) hypertension; K21.9 Gastro-esophageal reflux disease without esophagitis; M25.561 Pain in right knee; M25.562 Pain in left knee; E55.9 Vitamin D deficiency, unspecified; E53.8 Deficiency of other specified B group vitamins; E78.5 Hyperlipidemia, unspecified; M51.369 Other intervertebral disc degeneration, lumbar region without mention of lumbar back pain or lower extremity pain; Z23 Encounter for immunization; Z78.0 Asymptomatic menopausal state; Z79.899 Other long term (current) drug therapy | CPT/HCPCS: 90471; 90677; 96127; 99212; 99397 ==

== ENCOUNTER 2024-07-21 12:03 | Outpatient (AMB) | payer OTHER, SELFPAY ==
--- NOTE | 2024-07-21 12:06 | MHC.OFFVIS ---
Vital Signs 07/21/24 12:07 Height 5 ft 5 in Weight 152 lb 8.958 oz BMI 25.4 BP 126/69 Blood Pressure Location Rt brachial Position Sitting Pulse 82 Intake Visit Reasons: follow up dysphagia Intake Note: Patient in office today in follow up of dysphagia. CC: Gwendolyn reports some trouble having BMs. Denies having any other GI symptoms or concerns today. 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 The procedure was well tolerated. The results were explained and the patient is agreeable to the follow-up interval as stated. The bowel pattern has returned to normal. Education was provided to tell any 1st degree relatives about their findings to be sure that they are screened by age 45. Educated that they will be put on a recall list when it is time for their repeat scope but should they move out of state or away from the hospital they will need to remember along with their primary to repeat the procedure in a timely fashion to avoid any adverse complications. Dysphagia resolved. However, not taking her omeprazole qd as fearful, my sisters doctor told her it would hurt her kidneys. Educated, agrees to omeprazole daily and will monitor renal fxn. Getting baseline today ROV 3 mos. Orders: Orders Comprehensive Met. Panel 12/15/23 I10 - Essential (primary) hypertension Medications: Refilled omeprazole 40 mg PO DAILY 30 caps 3RF 30 days LABS: Laboratory Tests 12/15/23 12:49 Estimated GFR > 60 Total Bilirubin 0.3 AST 19 ALT 18 Alkaline Phosphatase 106 CORRESPONDENCE On 10/07/23 @ 13:49 Zoe Montalvo Wrote To Zoe Montalvo (2) I do not think so. Dizziness usually is caused either by cardiac problems, inner ear problems, or even Neurology polyps. On 10/06/23 @ 16:04 Debbie Mullins Wrote To Zoe Montalvo (2) I returned patient call and she states that she was told at her last visit that she has a hernia - she has been having dizziness and she wants to know if that is something that could be causing this dizziness? On 09/30/23 @ 13:55 Zoe Montalvo Wrote To KatiaZoe (2) It is really too much to explain over the phone. She has a lot going on in her esophagus probably driven by a very large hiatal hernia. He should probably try to get her in to see me sooner so I can explain these things in person. However, the endoscopy will also be important in her full diagnosis. On 09/29/23 @ 16:52 Paula Singh Wrote To KatiaZoe Please see message below and advise. On 09/29/23 @ 14:05 Rosaline Talavera Wrote To KatiaZoe (2) Pt asked if you can please call with BA Results, she's worried and doesn't want to wait til 11/06/23, TODAYS VISIT Bel[place]ian #[id number] She has not yet heard about scheduling the repeat colonoscopy that would be due in November r/t . I will put order and scheduling request in. She is agreeable. She has been doing well w/o any dysphagia since her esphageal dilation and staying on her esomeprazole EVERY DAY. She is drinking a yerba mate tea and asks if it is alright. It has regulated her bowels and bloating, and despite having lemon and hui does not cause her GERD so I say its ok to continue. She says someone told her she had spots on liver, but I think she mistook what I said when I described her gastritis - I was not evaluating her liver. She has no recent imaging studies and her transaminases are normal, but will order an US to put her mind at rest. Her asthma is well controlled and she denies any cardiac problems. There are no prior problems with anesthesia or sedation There are no ID problems. ROV 6 mos. She has a door knob request that I run test for the masses on my neck, saying she was seeing a specialist on [facility] [place] and was supposed to have test done but she did not. I don't know what they were looking for, but she gives me a name and it is a physician at [facility] - since I don't know the background and it seems out of my specialy I kindly refer her to discuss this with Dr. Carolina who is the PCP and likely ther referring provider. [facility] Medical History (Updated 07/21/24 @ 13:09 by KEDAR Rodriguez) Physical exam Right knee pain Hemorrhoids Conjunctivitis Neck pain Skin mole Syncope Hair loss Skin lesion Pre-op examination Colon cancer screening Rhinitis Impaired glucose tolerance High cholesterol Hypertension Asthma Surgical History Hx of colonoscopy History of total abdominal hysterectomy and bilateral salpingo-oophorectomy Family History Father No problems noted. Mother Hypertension Stroke Maternal Grandmother No problems noted. Maternal Grandfather No problems noted. Paternal Grandmother Diabetes Paternal Grandfather No problems noted. Paternal Aunt Cancer Other History of total abdominal hysterectomy and bilateral salpingo-oophorectomy Social History Household Members: None Housing: Other Housing Other:: Basement Are you a primary hospice care sales consultant to a significant other at home: No Do you presently have visiting nurse or other home services: No Alcohol intake: current Alcohol intake frequency: holidays/special occasions only Alcohol type: beer Patient Tobacco Use Status: Former Tobacco user Tobacco use type: Cigarette e-Cigarette/Vaping Use: Never Used Second Hand Smoke Exposure: No Substance Use Type: Marijuana service: No Current occupational status: disabled Cognitive needs: No Hearing needs: No Vision needs: Yes Review of Systems Const Denies fatigue, Denies fever(s), Denies night sweats, Denies poor appetite and Denies weight loss ENT Details: Subjective report of ?neck masses? Reports Normal hearing present, Denies dental pain, Denies dysphagia, Denies hearing loss, Denies mouth pain, Denies odynophagia, Denies throat swelling, Denies tongue swelling and Reports other (Dentition adequate) Card Reports no additional complaints Resp Reports no additional complaints GI Details: Denies abdominal pain, Denies melena, Denies bloating, Denies hematochezia, Denies constipation, Denies GI cramping, Denies dysphagia, Denies excessive flatus, Denies early satiety, Reports heartburn, Denies diarrhea, Denies nausea, Denies odynophagia, Denies vomiting and Denies hematemesis Skin/Breast Denies pruritus, Denies lesions, Denies rash and Denies jaundice Neuro Reports Normal hearing present and Denies Abnormal speech present Endo Denies fatigue Aller/Immun Denies throat swelling and Denies tongue swelling Physical Exam Vital Signs: Last Vital Signs Pulse 82 07/21/24 12:07 BP 126/69 07/21/24 12:07 BMI result Body Mass Index 25.4 Const General: cooperative, no acute distress, well developed and well groomed Nutritional Appearance: average body habitus and well nourished Orientation/consciousness: oriented to person, oriented to place and oriented to time Limitations: language barrier HEENT Head: Yes normocephalic and Yes atraumatic Eyes General: appearance normal, both eyes and all related structures Pupils: Equal, round and reactive pupils present Neck Neck: Yes normal visual inspection Resp Effort & Inspection: normal respiratory effort and able to speak in complete sentences Auscultation: clear to auscultation bilaterally Cardio Rate: regular rate Rhythm: regular rhythm Heart sounds: Normal, physiologic split S2 sound present Peripheral pulses: radial pulses present and posterior tibial pulses present GI Inspection: No distended and No Abdominal panniculus present Palpation (GI): Soft to palpation, nontender, no guarding, not rigid and No hepatosplenomegaly present Percussion: Yes normal to percussion Auscultation: normal bowel sounds Rectal Exam - Female: deferred Skin General skin exam: no rashes or lesions noted, turgor normal, skin not dry, no jaundice, No spider nevi and no striae Rashes: no rashes Nails: normal Neuro General: oriented to person, oriented to place and oriented to time Cranial nerves: Yes Equal, round and reactive pupils present and Yes Normal hearing present Speech: No Abnormal speech present Extrem General: Yes normal to inspection, No clubbing, No cyanosis and No edema Psych Appearance: grossly normal and well kempt Mental Status: mental status grossly normal Speech and movement: Normal speech and movement present Affect: normal affect Attitude: cooperative Thought process: Normal thought process present and not confabulating Thought content: Normal thought content present Insight: Fair insight present (Psych) Judgement: Fair judgement present (Psych) Assessment & Plan Assessment & Plan (1) Tubulovillous adenoma of colon: Comment: scope Code(s): D12.6 - Benign neoplasm of colon, unspecified Category: Medical (2) Family history of polyps in the colon: Comment: SISTER, last scoped 2020 repeat 3-5 years Code(s): Z83.71 - Family history of colonic polyps Category: Medical (3) Tubular adenoma of colon: Comment: [facility] 05/2023 scope, repeat 1 year; 08/2020 scope repeat 3-5 years Code(s): D12.6 - Benign neoplasm of colon, unspecified Category: Medical (4) Liver lesion: Comment: Pt states someone told her she had spots on her liver, normal transaminases Code(s): K76.9 - Liver disease, unspecified Category: Medical (5) Esophageal stricture: Code(s): K22.2 - Esophageal obstruction Category: Medical (6) GERD (gastroesophageal reflux disease): Code(s): K21.9 - Gastro-esophageal reflux disease without esophagitis Category: Medical Plan [place]ian #[id number] She has not yet heard about scheduling the repeat colonoscopy that would be due in November r/t . I will put order and scheduling request in. She is agreeable. She has been doing well w/o any dysphagia since her esphageal dilation and staying on her esomeprazole EVERY DAY. She is drinking a yerba mate tea and asks if it is alright. It has regulated her bowels and bloating, and despite having lemon and hui does not cause her GERD so I say its ok to continue. She says someone told her she had spots on liver, but I think she mistook what I said when I described her gastritis - I was not evaluating her liver. She has no recent imaging studies and her transaminases are normal, but will order an US to put her mind at rest. Her asthma is well controlled and she denies any cardiac problems. There are no prior problems with anesthesia or sedation There are no ID problems. ROV 6 mos. She has a door knob request that I run test for the masses on my neck, saying she was seeing a specialist on [facility]i [place] and was supposed to have test done but she did not. I don't know what they were looking for, but she gives me a name and it is a physician at [facility] - since I don't know the background and it seems out of my specialy I kindly refer her to discuss this with Dr. Carolina who is the PCP and likely ther referring provider. Orders: Orders Colonoscopy - GI Use Only Today D12.6 - Benign neoplasm of colon, unspecified, Z83.71 - Family history of colonic polyps US abdomen complete Today K76.9 - Liver disease, unspecified Medications: New peg 3350-electrolytes 236-22.74-6.74 -5.86 gram (Golytely) until fecal effluent is clear; do not exceed a total volume of 2,000 mL 240 mL PO Q10M 1 day 4,000 mL 0RF Z12.11 - Encounter for screening for malignant neoplasm of colon bisacodyl (Dulcolax (bisacodyl)) 10 mg (2 x 5 mg) PO BEDTIME 2 days 4 tabs 0RF Refilled esomeprazole magnesium 20 mg PO DAILY 90 caps 2RF sennosides (Senna Laxative) 17.2 mg (2 x 8.6 mg) PO BEDTIME 60 tabs 6RF K59.00 - Constipation, unspecified Coding Level of Care Code Est Pt Level 4 (57372) Diagnoses Tubulovillous adenoma of colon D12.6 Family history of polyps in the colon Z83.71 Tubular adenoma of colon D12.6 Liver lesion K76.9 Esophageal stricture K22.2 GERD (gastroesophageal reflux disease) K21.9 Time Spent (min) 38
[2024-07-21 12:07] VITALS: BP 126/69; PULSE 82; BMI 25.4
== END 2024-07-21 13:53 | disposition home or self-care (01) ==
LOC: HO.HGI 12:03
PROVIDERS: PCP Internal Medicine; Visit Provider Nurse Practitioner
DX: R13.10 Dysphagia, unspecified (principal); Z86.0101 Personal history of adenomatous and serrated colon polyps; Z83.719 Family history of colon polyps, unspecified; K29.70 Gastritis, unspecified, without bleeding
CPT/HCPCS: 99214

== ENCOUNTER → 2024-07-21 12:03 | Outpatient (BNVA) | payer OTHER, SELFPAY | PROVIDERS: PCP Internal Medicine; Visit Provider Nurse Practitioner | DX: I10 Essential (primary) hypertension (principal); D12.6 Benign neoplasm of colon, unspecified; K76.9 Liver disease, unspecified; K22.2 Esophageal obstruction; K21.9 Gastro-esophageal reflux disease without esophagitis; K59.00 Constipation, unspecified; Z83.719 Family history of colon polyps, unspecified | CPT/HCPCS: 99212 ==

== ENCOUNTER 2024-08-03 08:24 | Outpatient (REF) | payer OTHER, SELFPAY ==
--- NOTE | ~2024-08-03 | MM_ITS ---
EXAMINATION: DXA BONE DENSITY AXIAL HISTORY: Z78.0 - Asymptomatic menopausal state TECHNIQUE: Superhuman Dual energy absorptiometry (DEXA) of the lumbar spine, total left hip, and femoral neck was performed. COMPARISON: There are no prior studies for comparison. FINDINGS: The bone mineral density of the lumbar spine is 0.801 with a T-score of -3.2, and a Z-score of -1.6. This is indicative of osteoporosis. The bone mineral density of the left total hip is 0.788 with a T-score of -1.7, and a Z-score of -0.4. This is indicative of osteopenia. The bone mineral density of the left femoral neck is 0.811 with a T-score of -1.6, and a Z-score of 0.0. This is indicative of osteopenia. MM/XR DEXA axial skeleton IMPRESSION: Based on bone mineral density, and according to World Health Organization (WHO) criteria, the diagnosis is consistent with osteoporosis. All bone density values are in grams per centimeter squared (g/cm2). Statistically, 68% of repeat scans fall within 1 SD (+/- 0.010 g/cm2 for AP spine L1-L4) and 1 SD (+/- 0.012 g/cm2 for femur total) FRAX is a trademark of the [employer]'s [place] [facility] Metabolic Bone Disease, a World Health Organization (WHO) Collaborating Center. Electronically signed by: Michel Mendoza MD 08/03/2024 10:37 AM EDT
== END 2024-08-03 08:25 | disposition home or self-care (01) ==
LOC: HO.MAMMO 08:24
PROVIDERS: PCP Internal Medicine; Visit Provider Internal Medicine
DX: Z13.820 Encounter for screening for osteoporosis (principal); Z78.0 Asymptomatic menopausal state
CPT/HCPCS: 77080

== ENCOUNTER → 2024-08-03 08:45 | Outpatient (BNV) | payer OTHER, SELFPAY | PROVIDERS: PCP Internal Medicine; Visit Provider Radiology Diagnostic Radiology | DX: E28.39 Other primary ovarian failure (principal) | CPT/HCPCS: 77080 ==

== ENCOUNTER 2024-08-10 10:07 | Outpatient (REF) | payer OTHER, SELFPAY ==
[2024-08-10 10:20] LABS: MANUAL DIFF FLAG NO
[2024-08-10 10:30] LABS: Basophils Absolute Auto 0.1 X10*3/uL (0.0-0.2); Basophils Percent Auto 1.4 % (0-2); Eosinophils Absolute Auto 0.1 X10*3/uL (0.0-0.4); Eosinophils Percent Auto 1.6 % (0-4); Hematocrit 44.2 % (37.0-47.0); Hemoglobin 13.9 g/dl (12.0-16.0); Imm Gran Abs Auto 0.01 X10*3/uL (0.00-0.03); Imm Gran Pct Auto 0.2 % (0.0-0.4); Lymphocytes Absolute Auto 1.8 X10*3/uL (1.2-4.9); Mean Corpuscular HGB Conc 31.4 g/dl (31.0-35.0); Mean Corpuscular Hemoglobin 26.7 pg (27.0-33.0); Mean Platelet Volume 10.9 fL (9.4-12.3); Monocytes Absolute Auto 0.4 X10*3/uL (0.1-1.2); Monocytes Percent Auto 7.1 % (2-11); Neutrophils Absolute Auto 3.4 x10*3/uL (2.0-8.3); Neutrophils Percent Auto 58.7 % (45-73); Platelet Count 255 X10*3/uL (160-400); Red Cell Distribution Width 14.3 % (11.0-16.0); White Blood Count 5.8 X10*3/uL (4.8-10.8)
[2024-08-10 11:12] LABS: Alanine Aminotransferase 29 U/L (0-31); Albumin Level 4.2 g/dL (3.5-5.0); Alkaline Phosphatase 78 U/L (39-117); Anion Gap 10 (12-20); Aspartate Amino Transferase 33 U/L (5-31); Bilirubin Total 0.5 mg/dL (0.0-1.0); Blood Urea Nitrogen 13 mg/dL (9-16); Calcium 9.9 mg/dL (8.4-10.2); Carbon Dioxide 29 mmol/L (22-29); Chloride 108 mmol/L (96-108); Cholesterol 175 mg/dL (<200); Estimated Glomerular Filt Rate > 60; Glucose Fasting 94 mg/dL (60-99); HDL Cholesterol 55 mg/dL (>40); Iron 149 mcg/dL (30-160); LDL Cholesterol Calculated 101 mg/dL (<100); Percent Iron Saturation 51 % (15-50); Potassium 4.4 mmol/L (3.3-5.1); Sodium 143 mmol/L (135-145); Total Iron Binding Capacity 295 mcg/dL (228-428); Triglycerides 97 mg/dL (<150); Unsaturated Iron Binding 146 ug/dL
[2024-08-10 11:19] LABS: Vitamin D 25-OH Total 37.9 ng/mL (>30)
[2024-08-10 11:29] LABS: Folate 14.3 ng/mL (> or = 4.0); Vitamin B12 610 pg/mL (200-900)
[2024-08-13 09:54] LABS: TS Negative Control Passed; TS Panel A 0; TS Panel B 1; TS Positive Control Passed; TSpotTB Negative (Negative)
[2024-08-14 14:48] LABS: Vitamin D 25-OH, D2 <4 ng/mL; Vitamin D 25-OH, D3 27 ng/mL; Vitamin D 25-OH, Total 27 ng/mL (30-100)
== END 2024-08-10 10:08 | disposition home or self-care (01) ==
LOC: HO.LAB 10:07
PROVIDERS: PCP Internal Medicine; Visit Provider Internal Medicine
DX: R73.02 Impaired glucose tolerance (oral) (principal); D64.9 Anemia, unspecified; E78.5 Hyperlipidemia, unspecified; E53.8 Deficiency of other specified B group vitamins; E55.9 Vitamin D deficiency, unspecified; Z11.1 Encounter for screening for respiratory tuberculosis
CPT/HCPCS: 36415; 80053; 80061; 82306; 82607; 82746; 83540; 85025; 86481

== ENCOUNTER 2024-08-17 10:36 | Outpatient (AMB) | payer OTHER, SELFPAY ==
--- NOTE | 2024-08-17 10:54 | A.OFFVIS_ITS ---
Vital Signs 08/17/24 10:55 Height 5 ft 5 in Weight 155 lb 6.814 oz BMI 25.9 BP 130/62 Blood Pressure Location Lt brachial Position Sitting Pulse 92 Pulse Source Pulse Oximeter Pulse Oximetry (%) 97 Oxygen Delivery Method Room Air Intake Visit Reasons: osteoporosis Intake Note: Patient presents today for an osteoporosis visit. General Dentist Required: Yes General Dentist Name: triston [id number] Information Interpreted: non-clinical & clinical Allergies No Known Allergies [No Known Allergies*] Allergy (Verified 08/17/24 10:54) HPI HPI osteoporosis: Details: New patient visit. Bol[place]ian speaking patient. 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 DXA 07/2024 reviewed. No hx of fracture. No hx of thyroid disease. She has 3 nodules in neck. She points to one nodule on thyroid and the other two on lateral sides of neck. She had bx by physician ENT Dr. Jerri العلي. No hx of parathyroid disease or sarcoidosis. No hx of snf use of prednisone or anticoagulants or anti- epileptic drugs. Vitamin D deficiency on recent labs 08/2024. She uses Unicity booster BID (calcium 60mg) and [place] Balance (calcim 60mg) daily Drinks lactate milk because cows milk bothers her. SHe is unable to tell me if she is lactose intolerance. Mother had osteoporosis. No plan for dental work. [facility] Medical History Physical exam Right knee pain Hemorrhoids Conjunctivitis Neck pain Skin mole Syncope Hair loss Skin lesion Pre-op examination Colon cancer screening Rhinitis Impaired glucose tolerance High cholesterol Hypertension Asthma Surgical History Hx of colonoscopy History of total abdominal hysterectomy and bilateral salpingo-oophorectomy Family History Father No problems noted. Mother Hypertension Stroke Maternal Grandmother No problems noted. Maternal Grandfather No problems noted. Paternal Grandmother Diabetes Paternal Grandfather No problems noted. Paternal Aunt Cancer Other History of total abdominal hysterectomy and bilateral salpingo- oophorectomy Social History Household Members: None Housing: Other Housing Other:: Basement Are you a primary infant childcare provider to a significant other at home: No Do you presently have visiting nurse or other home services: No Alcohol intake: current Alcohol intake frequency: holidays/special occasions only Alcohol type: beer Patient Tobacco Use Status: Former Tobacco user Tobacco use type: Cigarette e-Cigarette/Vaping Use: Never Used Second Hand Smoke Exposure: No Substance Use Type: Marijuana service: No Current occupational status: disabled Cognitive needs: No Hearing needs: No Vision needs: Yes Physical Exam Vital Signs: Last Vital Signs Pulse 92 08/17/24 10:55 BP 130/62 08/17/24 10:55 Pulse Ox 97 08/17/24 10:55 Oxygen Delivery Method Room Air 08/17/24 10:55 BMI result Body Mass Index 25.9 Const Other: General: Comfortable CVS: RRR Respiratory: clear to auscultation bilaterally. Good respiratory effort Skin: No lesions seen MSK: No tenderness of any joint. Normal range of motion of upper extremities and lower extremities. No synovitis. Normal cervical range of motion. Limited full lumbar flexion. Results Reviewed Results Reviewed: Ordering Physician: Renetta Sutherland MD Results: Date of Service: 08/03/24 Follow Up: Procedure(s): XR DEXA axial skeleton Accession Number(s): [id number] cc: Renetta Sutherland MD~ EXAMINATION: DXA BONE DENSITY AXIAL HISTORY: Z78.0 - Asymptomatic menopausal state TECHNIQUE: Solicore Dual energy absorptiometry (DEXA) of the lumbar spine, total left hip, and femoral neck was performed. COMPARISON: There are no prior studies for comparison. FINDINGS: The bone mineral density of the lumbar spine is 0.801 with a T-score of -3.2, and a Z-score of -1.6. This is indicative of osteoporosis. The bone mineral density of the left total hip is 0.788 with a T-score of -1.7, and a Z-score of -0.4. This is indicative of osteopenia. The bone mineral density of the left femoral neck is 0.811 with a T-score of -1.6, and a Z-score of 0.0. This is indicative of osteopenia. Assessment & Plan Assessment & Plan (1) Osteoporosis: Comment: Without fragility fracture history. Vitamin-D deficient. We discussed management with bisphosphonate alendronate. Discussed side effects, benefits and drug monitoring. Code(s): M81.0 - Age-related osteoporosis without current pathological fracture Category: Medical Qualifiers: Osteoporosis type: age-related Presence of current pathological fracture: without current pathological fracture Qualified Code(s): M81.0 - Age- related osteoporosis without current pathological fracture Plan: Labs ordered to evaluate for secondary causes of osteoporosis Vitamin-D ergocalciferol 52689 IU weekly for 12 weeks total prescribed Calcium carbonate 500 mg twice a day prescribed She will need maintenance combination calcium and vitamin-D tablet after ergocalciferol course is completed She can continue [place] booster and balance powders made into drinks and smoothie Information on bisphosphonates in [place]ian given to patient Return to clinic in 1-2 months Orders: Orders Parathyroid Hormone Intact Today M81.0 - Age-related osteoporosis without current pathological fracture Calcium Today M81.0 - Age-related osteoporosis without current pathological fracture TSH reflex Free T4 Today M81.0 - Age-related osteoporosis without current pathological fracture Phosphorus Today M81.0 - Age-related osteoporosis without current pathological fracture Medications: New cholecalciferol (vitamin D3) Takes one tablet once weekly for a total of 12 weeks. [place]ian label. 1,250 mcg PO QWEEK 12 weeks 12 tabs 0RF calcium carbonate 500 mg PO BID 60 tabs 11RF Coding Level of Care Code New Pt Level 4 (47199) Complex EM visit Add On G2211 Diagnoses Age-related osteoporosis without current pathological fracture M81.0 Osteoporosis type: age-related Presence of current pathological fracture: without current pathological fracture
[2024-08-17 10:55] VITALS: BP 130/62; PULSE 92; O2SAT 97; BMI 25.9
== END 2024-08-17 12:35 | disposition home or self-care (01) ==
LOC: HO.RHES 10:37
PROVIDERS: PCP Internal Medicine; Visit Provider Internal Medicine Rheumatology
DX: M81.0 Age-related osteoporosis without current pathological fracture (principal)
CPT/HCPCS: 99204; G2211

== ENCOUNTER 2024-08-17 10:36 | Outpatient (REF) | payer OTHER, SELFPAY ==
[2024-08-17 18:37] LABS: Calcium 9.8 mg/dL (8.4-10.2); Phosphorus 2.8 mg/dL (2.7-4.5)
[2024-08-17 18:53] LABS: TSH reflex Free T4 0.51 uIU/mL (0.32-4.0)
[2024-08-17 19:06] LABS: Parathyroid Hormone Intact 65.6 pg/mL (8.7-77.1)
== END 2024-08-17 10:37 | disposition home or self-care (01) ==
LOC: HO.HKASLDS 10:36
PROVIDERS: PCP Internal Medicine; Visit Provider Internal Medicine Rheumatology
DX: M81.0 Age-related osteoporosis without current pathological fracture (principal)
CPT/HCPCS: 36415; 82310; 83970; 84100; 84443; 99202

== ENCOUNTER 2024-08-20 23:56 | Emergency (ER) | payer OTHER, SELFPAY ==
--- NOTE | ~2024-08-20 | XR_ITS ---
CLINICAL HISTORY: productive cough 2 view chest x-ray Comparison: None Findings: No consolidation or effusion. Heart size is normal. No acute fracture. IMPRESSION: 1. No acute findings. This document has been electronically signed by: Raf Nova MD on 08/21/2024 01:07:57
[2024-08-21 00:04] VITALS: BP 143/75; PULSE 86; RESP 18; TEMP 36.8; O2SAT 96; BMI 25.3
[2024-08-21 00:57] VITALS: BP 116/59; PULSE 86; RESP 18; TEMP 36.9; O2SAT 99
--- NOTE | 2024-08-21 01:13 | ED_ITS ---
HPI - General Adult General Chief complaint: Upper Respiratory Symptoms Stated complaint: throat pain Time Seen by Provider: 08/21/24 01:04 Source: patient Mode of arrival: ambulatory Limitations: no limitations History of Present Illness ED Provider: Dr. Guerda Perez HPI narrative: Patient comes to the emergency room complaining of sore throat, bilateral ear pain, productive cough. Patient denies fever chills Related Data Home Medications ?Medication ?Instructions ?Recorded ?Confirmed cyanocobalamin (vitamin B-12) 1,000 mcg PO DAILY 10/02/23 06/30/24 1,000 mcg capsule Previous Rx's ?Medication ?Instructions ?Recorded Grab bar #1 ea 11/26/21 cyclobenzaprine 10 mg tablet 10 mg PO BEDTIME #14 tabs 04/12/23 hydrocortisone 2.5 % topical cream 1 appl [place] BID hemorrhoids #30 grams 07/21/23 with perineal applicator (Proctosol HC) underpads (Bed Underpads) #100 ea 08/05/23 incontinence pad, liner, disp #120 ea 12/24/23 recliner #1 ea 03/04/24 sumatriptan succinate 50 mg tablet 50 mg PO Q2-4H PRN migraine 03/21/24 headache 30 days #9 tabs simvastatin 20 mg tablet 20 mg PO BEDTIME #90 tabs 06/22/24 albuterol sulfate 90 mcg/actuation 2 puff inhalation Q6H PRN 06/30/24 aerosol inhaler (Ventolin HFA) shortness of breath or wheezing 30 days #6.7 grams enalapril maleate 20 mg tablet 20 mg PO DAILY 90 days #90 tabs 06/30/24 gabapentin 300 mg capsule 300 mg PO BEDTIME 30 days #30 caps 07/04/24 bisacodyl 5 mg tablet,delayed 10 mg (2 x 5 mg) PO BEDTIME 2 days 07/21/24 release (Dulcolax (bisacodyl)) #4 tabs esomeprazole magnesium 20 mg 20 mg PO DAILY #90 caps 07/21/24 capsule,delayed release peg 3350-electrolytes 236 240 ml PO Q10M 1 day #4,000 mL 07/21/24 gram-22.74 gram-6.74 gram-5.86 gram solution (Golytely) sennosides 8.6 mg tablet (Senna 17.2 mg (2 x 8.6 mg) PO BEDTIME 07/21/24 Laxative) #60 tabs alendronate 70 mg tablet 70 mg PO QWEEK 12 weeks #12 tabs 08/17/24 calcium carbonate 500 mg PO BID #60 tabs 08/17/24 cholecalciferol (vitamin D3) 1,250 1,250 mcg PO QWEEK 12 weeks #12 08/17/24 mcg (50,000 unit) tablet tabs albuterol sulfate 90 mcg/actuation 2 puff inhalation Q4-6H PRN 08/21/24 aerosol inhaler shortness of breath or wheezing #6.7 grams prednisone 50 mg tablet 50 mg PO DAILY #5 tabs 08/21/24 Allergies Allergy/AdvReac Type Severity Reaction Status Date / Time No Known Allergies Allergy Verified 08/21/24 00:07 [No Known Allergies*] [facility] Past Medical History Medical History Physical exam Right knee pain Hemorrhoids Conjunctivitis Neck pain Skin mole Syncope Hair loss Skin lesion Pre-op examination Colon cancer screening Rhinitis Impaired glucose tolerance High cholesterol Hypertension Asthma Surgical History Hx of colonoscopy History of total abdominal hysterectomy and bilateral salpingo-oophorectomy Family History Family History Father No problems noted. Mother Hypertension Stroke Maternal Grandmother No problems noted. Maternal Grandfather No problems noted. Paternal Grandmother Diabetes Paternal Grandfather No problems noted. Paternal Aunt Cancer Other History of total abdominal hysterectomy and bilateral salpingo- oophorectomy Social History Social History Household Members: None Housing: Other Housing Other:: Basement Are you a primary critical care unit nurse to a significant other at home: No Do you presently have visiting nurse or other home services: No Alcohol intake: current Alcohol intake frequency: holidays/special occasions only Alcohol type: beer Patient Tobacco Use Status: Former Tobacco user Tobacco use type: Cigarette Smoked in Last 30 Days: No e-Cigarette/Vaping Use: Never Used Second Hand Smoke Exposure: No Use of substances other than those prescribed or required for medical reasons: No Substance Use Type: Marijuana Advance Directives: No Advance Directives Information Provided: Yes service: No Current occupational status: disabled Cognitive needs: No Hearing needs: No Vision needs: Yes Physical Exam ED Vital Signs: Vital Signs - 24 hr 08/21/24 00:04 08/21/24 00:57 Temperature 98.2 F 98.5 F Pulse Rate 86 86 Respiratory Rate 18 18 Blood Pressure 143/75 H 116/59 L Pulse Oximetry 96 99 Oxygen Delivery Method Room Air Room Air BMI result Body Mass Index 25.3 Medications Administered Discontinued Medications Generic Name Dose Route Start Last Admin Trade Name Freq PRN Reason Stop Dose Admin Dexamethasone 4 mg 08/21/24 01:08 08/21/24 01:46 Dexamethasone 4 Mg Tablet PO 08/21/24 01:09 4 mg ONCE ONE Administration Lidocaine HCl 15 ml 08/21/24 01:08 08/21/24 01:46 Lidocaine Hcl Viscous 2 % 15 Ml Solution MUCOUS MEM 08/21/24 01:09 15 ml ONCE ONE Administration Medical Decision Making Medical Decision Making MDM Narrative: patient's x-rays did not show any acute abnormality patient's vitals stable, blood pressure 116/59, heart rate 86, temperature 98.5 degrees, oxygen saturation 99% on room air after walking in the emergency room serology negative for influenza RSV, COVID and strep patient has viral URI likely worsening patient's asthma no wheezing at this time Differential Diagnosis Differential Diagnoses: The differential diagnosis associated with the presentation includes ( influenza, COVID, RSV, other viral illness, asthma exacerbation) Lab Data Labs: Lab Results 08/21/24 Range/Units 01:02 Influenza Type A (PCR) NEGATIVE (Negative) Influenza Type B (PCR) NEGATIVE (Negative) RSV RNA Qual (PCR) NEGATIVE (Negative) SARS-CoV-2 RNA (RT-PCR) NEGATIVE (Negative) S. pyogenes GrpA ANGIE Negative (Negative) Independent Interpretation I performed an independent interpretation of an: Plain X-Ray Radiology Impression Discussion of test interpretation with radiology: I have reviewed the radiologist's reading. Radiologist Impression: No consolidation or effusion. Heart size is normal. No acute fracture. IMPRESSION: 1. No acute findings. Discharge Plan Discharge Clinical Impression: Viral URI Patient Disposition: Home, Self-Care Instructions: Upper Respiratory Infection (ED) Additional Instructions: Please follow-up with your primary care physician tomorrow. If you have any worsening or new symptoms, please return to the emergency room or call 911 Prescriptions: New prednisone 50 mg tablet 50 mg PO DAILY Qty: 5 0RF albuterol sulfate 90 mcg/actuation HFA aerosol inhaler 2 puff inhalation Q4-6H PRN (Reason: shortness of breath or wheezing) Qty: 6.7 0RF No Action (DME) underpads [Bed Underpads] Pad See Rx Instructions .Route Qty: 100 3RF Rx Instructions: Use 1 pad once a day (DME) recliner See Rx Instructions .Route .MEDSUPPLY Qty: 1 0RF Rx Instructions: As directed sumatriptan succinate 50 mg tablet 50 mg PO Q2-4H PRN (Reason: migraine headache) 30 Days Qty: 9 2RF Rx Instructions: do not exceed 4 doses per 24 hrs simvastatin 20 mg tablet 20 mg PO BEDTIME Qty: 90 1RF albuterol sulfate [Ventolin HFA] 90 mcg/actuation HFA aerosol inhaler 2 puff inhalation Q6H PRN (Reason: shortness of breath or wheezing) 30 Days Qty: 6.7 1RF enalapril maleate 20 mg tablet 20 mg PO DAILY 90 Days Qty: 90 0RF gabapentin 300 mg capsule 300 mg PO BEDTIME 30 Days Qty: 30 0RF alendronate 70 mg tablet 70 mg PO QWEEK 84 Days Qty: 12 3RF Rx Instructions: Take once a week on an empty stomach in the morning. Drinks lots of water. Sit upright for 30 minutes. [place] label. (DME) [place] [facility] [place] .Route Qty: 1 0RF Rx Instructions: As directed cyclobenzaprine 10 mg tablet 10 mg PO BEDTIME Qty: 14 0RF hydrocortisone [Proctosol HC] 2.5 % cream with perineal applicator 1 appl VA BID Qty: 30 6RF Rx Instructions: BE SURE TO INCLUDE RECTAL APPICATOR!! cyanocobalamin (vitamin B-12) 1,000 mcg capsule 1,000 mcg PO DAILY (DME) incontinence pad, liner, disp Pad See Rx Instructions .Route Qty: 120 11RF Rx Instructions: Use 1 pad 6 times a day peg 3350-electrolytes [Golytely] 236-22.74-6.74 -5.86 gram recon soln 240 ml PO Q10M 1 Days Qty: 4000 0RF Rx Instructions: until fecal effluent is clear; do not exceed a total volume of 2,000 mL bisacodyl [Dulcolax (bisacodyl)] 5 mg tablet,delayed release (DR/EC) 10 mg PO BEDTIME 2 Days Qty: 4 0RF esomeprazole magnesium 20 mg capsule,delayed release(DR/EC) 20 mg PO DAILY Qty: 90 2RF sennosides [Senna Laxative] 8.6 mg tablet 17.2 mg PO BEDTIME Qty: 60 6RF cholecalciferol (vitamin D3) 1,250 mcg (50,000 unit) tablet 1,250 mcg PO QWEEK 84 Days Qty: 12 0RF Rx Instructions: Takes one tablet once weekly for a total of 12 weeks. Iraqi label. calcium carbonate 500 mg calcium (1,250 mg) tablet 500 mg PO BID Qty: 60 11RF Print Language: Iraqi
[2024-08-21 01:15] LABS: IDNOW Serial# 6674DD1D; Strep A Nucleic Acid Negative (Negative)
[2024-08-21 01:45] LABS: Influenza A PCR NEGATIVE (Negative); Influenza B PCR NEGATIVE (Negative); Resp Syncy Virus RNA Qual PCR NEGATIVE (Negative); SARS COV2 PCR INHOUSE NEGATIVE (Negative)
[2024-08-21] MEDS: Lidocaine HCl Viscous 2 % 15 ML SOLUTION MUCOUS MEM (01:46)
[2024-08-21] MEDS: dexAMETHasone 4 MG TABLET PO (01:46)
[2024-08-21 02:50] VITALS: O2SAT 98
--- NOTE | 2024-08-21 02:52 | PC.NURSE ---
reviewed discharge instructions with pt. pt verbalized understanding no sign of distress.
[2024-08-21 02:55] VITALS: BP 119/74; PULSE 72; RESP 20; TEMP 37.1; O2SAT 98
== END 2024-08-21 02:59 | disposition home or self-care (01) ==
PROVIDERS: Emergency Provider Emergency Medicine
DX: J06.9 Acute upper respiratory infection, unspecified (principal); R05.9 Cough, unspecified; H92.03 Otalgia, bilateral; Z03.818 Encounter for observation for suspected exposure to other biological agents ruled out; I10 Essential (primary) hypertension; E78.00 Pure hypercholesterolemia, unspecified; J45.909 Unspecified asthma, uncomplicated; Z87.891 Personal history of nicotine dependence; Z79.899 Other long term (current) drug therapy
CPT/HCPCS: 0241U; 71046; 87651; 99283; 99284; J8540

== ENCOUNTER → 2024-08-21 00:05 | Outpatient (BNV) | payer OTHER, SELFPAY | PROVIDERS: Emergency Provider Emergency Medicine; Visit Provider Radiology Diagnostic Radiology | DX: R05.9 Cough, unspecified (principal) | CPT/HCPCS: 71046 ==

== ENCOUNTER 2024-08-23 01:36 | Emergency (ER) | payer OTHER, SELFPAY ==
[2024-08-23 01:38] VITALS: BP 148/54; PULSE 62; RESP 20; TEMP 36.2; O2SAT 97; BMI 25.8
--- NOTE | 2024-08-23 01:46 | ED.GENADULT ---
HPI - General Adult General Chief complaint: Skin/Abscess/Foreign Body Stated complaint: rash Time Seen by Provider: 08/23/24 01:46 History of Present Illness ED Provider: Salena CAMPBELL narrative: The patient is a 69-year-old female who says that she has had a lot of anal itching for the last 2-3 days. She has had problems with hemorrhoids in the past but not recently. She has what she thinks might have been an prescription for rectal hydrocortisone that she started using tonight but she was concerned that she felt something around her anus that felt very abnormal. This made her nervous and she came to the emergency room. She drove herself here. She does not feel sick otherwise. No fever, sweats, chills. No abdominal pain, nausea, vomiting. No diarrhea. Related Data Home Medications ?Medication ?Instructions ?Recorded ?Confirmed cyanocobalamin (vitamin B-12) 1,000 mcg PO DAILY 10/02/23 06/30/24 1,000 mcg capsule Previous Rx's ?Medication ?Instructions ?Recorded Grab bar #1 ea 11/26/21 cyclobenzaprine 10 mg tablet 10 mg PO BEDTIME #14 tabs 04/12/23 hydrocortisone 2.5 % topical cream 1 appl IN BID hemorrhoids #30 grams 07/21/23 with perineal applicator (Proctosol HC) underpads (Bed Underpads) #100 ea 08/05/23 incontinence pad, liner, disp #120 ea 12/24/23 recliner #1 ea 03/04/24 sumatriptan succinate 50 mg tablet 50 mg PO Q2-4H PRN migraine 03/21/24 headache 30 days #9 tabs simvastatin 20 mg tablet 20 mg PO BEDTIME #90 tabs 06/22/24 albuterol sulfate 90 mcg/actuation 2 puff inhalation Q6H PRN 06/30/24 aerosol inhaler (Ventolin HFA) shortness of breath or wheezing 30 days #6.7 grams enalapril maleate 20 mg tablet 20 mg PO DAILY 90 days #90 tabs 06/30/24 gabapentin 300 mg capsule 300 mg PO BEDTIME 30 days #30 caps 07/04/24 bisacodyl 5 mg tablet,delayed 10 mg (2 x 5 mg) PO BEDTIME 2 days 07/21/24 release (Dulcolax (bisacodyl)) #4 tabs esomeprazole magnesium 20 mg 20 mg PO DAILY #90 caps 07/21/24 capsule,delayed release peg 3350-electrolytes 236 240 ml PO Q10M 1 day #4,000 mL 07/21/24 gram-22.74 gram-6.74 gram-5.86 gram solution (Golytely) sennosides 8.6 mg tablet (Senna 17.2 mg (2 x 8.6 mg) PO BEDTIME 07/21/24 Laxative) #60 tabs alendronate 70 mg tablet 70 mg PO QWEEK 12 weeks #12 tabs 08/17/24 calcium carbonate 500 mg PO BID #60 tabs 08/17/24 cholecalciferol (vitamin D3) 1,250 1,250 mcg PO QWEEK 12 weeks #12 08/17/24 mcg (50,000 unit) tablet tabs albuterol sulfate 90 mcg/actuation 2 puff inhalation Q4-6H PRN 08/21/24 aerosol inhaler shortness of breath or wheezing #6.7 grams prednisone 50 mg tablet 50 mg PO DAILY #5 tabs 08/21/24 hydrocortisone 2.5 % topical cream 1 appl IN DAILY PRN itching #30 08/23/24 with perineal applicator grams Allergies Allergy/AdvReac Type Severity Reaction Status Date / Time No Known Allergies Allergy Verified 08/23/24 01:38 [No Known Allergies*] Review of Systems Review of Systems: Yes all other systems are reviewed and are negative PMFSH Past Medical History Medical History Physical exam Right knee pain Hemorrhoids Conjunctivitis Neck pain Skin mole Syncope Hair loss Skin lesion Pre-op examination Colon cancer screening Rhinitis Impaired glucose tolerance High cholesterol Hypertension Asthma Surgical History Hx of colonoscopy History of total abdominal hysterectomy and bilateral salpingo-oophorectomy Family History Family History Father No problems noted. Mother Hypertension Stroke Maternal Grandmother No problems noted. Maternal Grandfather No problems noted. Paternal Grandmother Diabetes Paternal Grandfather No problems noted. Paternal Aunt Cancer Other History of total abdominal hysterectomy and bilateral salpingo-oophorectomy Social History Social History Household Members: None Housing: Other Housing Other:: Basement Are you a primary child care supervisor to a significant other at home: No Do you presently have visiting nurse or other home services: No Alcohol intake: current Alcohol intake frequency: holidays/special occasions only Alcohol type: beer Patient Tobacco Use Status: Former Tobacco user Tobacco use type: Cigarette e-Cigarette/Vaping Use: Never Used Second Hand Smoke Exposure: No Substance Use Type: Marijuana service: No Current occupational status: disabled Cognitive needs: No Hearing needs: No Vision needs: Yes Physical Exam ED Vital Signs: Vital Signs - 24 hr 08/23/24 01:38 Temperature 97.1 F Pulse Rate 62 Respiratory Rate 20 Blood Pressure 148/54 H Pulse Oximetry 97 Oxygen Delivery Method Room Air BMI result Body Mass Index 25.8 Const Other: The patient is awake, alert, pleasant, cooperative. She looks like a healthy 69-year-old who does not seem acutely ill in any way. HENMT Other: Face is symmetrical. Mucous membranes moist. Eyes General: appearance normal, both eyes and all related structures Neck Neck: Yes full ROM Resp Effort & Inspection: normal respiratory effort Auscultation: clear to auscultation bilaterally Cardio Rate: regular rate Rhythm: regular rhythm Heart sounds: S1 normal heart sound present and S2 normal heart sound present GI Other: Abdomen is soft and nontender. On rectal exam the patient has no obvious external abnormalities around the anus. There were no external hemorrhoids. No excoriation to the skin or mucosa around the anus. There was no particular swelling or tenderness on palpation of the perianal tissues. On digital rectal exam the patient had normal tone with no masses appreciated. Skin Other: Skin is dry and unremarkable Neuro Other: The patient is awake and alert with a normal mental status. Cranial nerves are grossly intact. She moves her extremities normally and appropriately. She seems entirely neurologically intact. Extrem Other: No peripheral edema. Medical Decision Making Medical Decision Making MDM Narrative: The patient is a 69-year-old female who presents with 3 days of anal itching. She was concerned that she might have some kind of excoriation to the tissue around her anus or possibly some kind of a mass. On my exam everything looks quite well. There is no obvious external abnormality at the anus or perianal tissues. No external hemorrhoids are visible. She does not seem particularly tender. There is no sign of anything that looks like an abscess. On digital rectal exam she has normal rectal tone with no masses appreciated. The patient will be prescribed rectal hydrocortisone and should follow up with her batteryman and or her primary care doctor. Discharge Plan Discharge Clinical Impression: Anal pruritus Patient Disposition: Home, Self-Care Instructions: Anal Itching (ED) Additional Instructions: At the moment I do not see anything dangerous or concerning on your exam. I do not see any external hemorrhoid or any abnormality to the skin around the anus. I have sent a prescription for new hydrocortisone cream that you may use once a day as needed. Please contact the gastroenterology office in the morning to arrange follow up. If you are unable to be seen promptly at the gastroenterology office contact your regular doctor's office. Return to the emergency room if worse. Prescriptions: New hydrocortisone 2.5 % cream with perineal applicator 1 appl IN DAILY PRN (Reason: itching) Qty: 30 0RF No Action (DME) underpads [Bed Underpads] Pad See Rx Instructions .Route Qty: 100 3RF Rx Instructions: Use 1 pad once a day (DME) recliner See Rx Instructions .Route .MEDSUPPLY Qty: 1 0RF Rx Instructions: As directed sumatriptan succinate 50 mg tablet 50 mg PO Q2-4H PRN (Reason: migraine headache) 30 Days Qty: 9 2RF Rx Instructions: do not exceed 4 doses per 24 hrs simvastatin 20 mg tablet 20 mg PO BEDTIME Qty: 90 1RF albuterol sulfate [Ventolin HFA] 90 mcg/actuation HFA aerosol inhaler 2 puff inhalation Q6H PRN (Reason: shortness of breath or wheezing) 30 Days Qty: 6.7 1RF enalapril maleate 20 mg tablet 20 mg PO DAILY 90 Days Qty: 90 0RF gabapentin 300 mg capsule 300 mg PO BEDTIME 30 Days Qty: 30 0RF alendronate 70 mg tablet 70 mg PO QWEEK 84 Days Qty: 12 3RF Rx Instructions: Take once a week on an empty stomach in the morning. Drinks lots of water. Sit upright for 30 minutes. Icelandic label. prednisone 50 mg tablet 50 mg PO DAILY Qty: 5 0RF albuterol sulfate 90 mcg/actuation HFA aerosol inhaler 2 puff inhalation Q4-6H PRN (Reason: shortness of breath or wheezing) Qty: 6.7 0RF (DME) Grab bar Misc See Rx Instructions .Route Qty: 1 0RF Rx Instructions: As directed cyclobenzaprine 10 mg tablet 10 mg PO BEDTIME Qty: 14 0RF hydrocortisone [Proctosol HC] 2.5 % cream with perineal applicator 1 appl IN BID Qty: 30 6RF Rx Instructions: BE SURE TO INCLUDE RECTAL APPICATOR!! cyanocobalamin (vitamin B-12) 1,000 mcg capsule 1,000 mcg PO DAILY (DME) incontinence pad, liner, disp Pad See Rx Instructions .Route Qty: 120 11RF Rx Instructions: Use 1 pad 6 times a day peg 3350-electrolytes [Golytely] 236-22.74-6.74 -5.86 gram recon soln 240 ml PO Q10M 1 Days Qty: 4000 0RF Rx Instructions: until fecal effluent is clear; do not exceed a total volume of 2,000 mL bisacodyl [Dulcolax (bisacodyl)] 5 mg tablet,delayed release (DR/EC) 10 mg PO BEDTIME 2 Days Qty: 4 0RF esomeprazole magnesium 20 mg capsule,delayed release(DR/EC) 20 mg PO DAILY Qty: 90 2RF sennosides [Senna Laxative] 8.6 mg tablet 17.2 mg PO BEDTIME Qty: 60 6RF cholecalciferol (vitamin D3) 1,250 mcg (50,000 unit) tablet 1,250 mcg PO QWEEK 84 Days Qty: 12 0RF Rx Instructions: Takes one tablet once weekly for a total of 12 weeks. Icelandic label. calcium carbonate 500 mg calcium (1,250 mg) tablet 500 mg PO BID Qty: 60 11RF Referrals: Zoe Montalvo ANP-C [Nurse Practitioner] - (anal itching) Renetta Sutherland MD [Physician] - (anal itching) Print Language: Icelandic
[2024-08-23 03:53] VITALS: BP 132/61; PULSE 67; RESP 16; TEMP 36.8; O2SAT 96
== END 2024-08-23 03:54 | disposition home or self-care (01) ==
PROVIDERS: Emergency Provider Emergency Medicine
DX: L29.0 Pruritus ani (principal); Z79.899 Other long term (current) drug therapy; Z87.891 Personal history of nicotine dependence
CPT/HCPCS: 99283; 99284

== ENCOUNTER 2024-08-25 10:50 | Outpatient (AMB) | payer OTHER, SELFPAY ==
--- NOTE | 2024-08-25 10:52 | MHC.OFFVIS ---
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 Patient was recently seen by her PCP who referred to orthopedics. Patient reports --. Urban And Regional Planner Required: Yes Urban And Regional Planner Services: Urban And Regional Planner Present Urban And Regional Planner Name: ahsan scanlon Information Interpreted: non-clinical & clinical Allergies No Known Allergies [No Known Allergies*] Allergy (Verified 08/25/24 11:04) Medication List - Last Reconciled 08/25/24 by Nettie Vanessa PA-C albuterol sulfate 90 mcg/actuation 2 puffs inhalation Q4-6H PRN albuterol sulfate 90 mcg/actuation (Ventolin HFA) 2 puffs inhalation Q6H PRN 30 days alendronate 70 mg PO QWEEK 12 weeks bisacodyl (Dulcolax (bisacodyl)) 10 mg (2 x 5 mg) PO BEDTIME 2 days calcium carbonate 500 mg PO BID cholecalciferol (vitamin D3) 1,250 mcg PO QWEEK 12 weeks cyanocobalamin (vitamin B-12) 1,000 mcg PO DAILY cyclobenzaprine 10 mg PO BEDTIME enalapril maleate 20 mg PO DAILY 90 days esomeprazole magnesium 20 mg PO DAILY gabapentin 300 mg PO BEDTIME 30 days Grab bar As directed hydrocortisone 2.5% 1 appl [place] DAILY PRN hydrocortisone 2.5% (Proctosol HC) 1 appl [place] BID incontinence pad, liner, disp Use 1 pad 6 times a day peg 3350-electrolytes 236-22.74-6.74 -5.86 gram (Golytely) 240 mL PO Q10M 1 day prednisone 50 mg PO DAILY [recliner As directed] sennosides (Senna Laxative) 17.2 mg (2 x 8.6 mg) PO BEDTIME simvastatin 20 mg PO BEDTIME sumatriptan succinate 50 mg PO Q2-4H PRN 30 days underpads (Bed Underpads) Use 1 pad once a day HPI 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 She states the right knee is worse than the left knee. She pain is intermittent. She feels like the knee is grinding together. She c/o worsening pain with walking long distances. When she goes up and down the stairs she walks using the railing. She denies treatment to date. FOR[facility]LY [facility], [facility] Medical History Physical exam Right knee pain Hemorrhoids Conjunctivitis Neck pain Skin mole Syncope Hair loss Skin lesion Pre-op examination Colon cancer screening Rhinitis Impaired glucose tolerance High cholesterol Hypertension Asthma Surgical History Hx of colonoscopy History of total abdominal hysterectomy and bilateral salpingo-oophorectomy Family History Father No problems noted. Mother Hypertension Stroke Maternal Grandmother No problems noted. Maternal Grandfather No problems noted. Paternal Grandmother Diabetes Paternal Grandfather No problems noted. Paternal Aunt Cancer Other History of total abdominal hysterectomy and bilateral salpingo-oophorectomy Social History Household Members: None Housing: Other Housing Other:: Basement Are you a primary resident care associate to a significant other at home: No Do you presently have visiting nurse or other home services: No Alcohol intake: current Alcohol intake frequency: holidays/special occasions only Alcohol type: beer Patient Tobacco Use Status: Former Tobacco user Tobacco use type: Cigarette e-Cigarette/Vaping Use: Never Used Second Hand Smoke Exposure: No Substance Use Type: Marijuana service: No Current occupational status: disabled Cognitive needs: No Hearing needs: No Vision needs: Yes Review of Systems Const All systems reviewed & are unremarkable except as noted in HPI and below Physical Exam Vital Signs: BMI result Body Mass Index 25.8 Const General: cooperative and no acute distress Orientation/consciousness: patient oriented x3 Resp Effort & Inspection: normal respiratory effort and able to speak in complete sentences Cardio Peripheral pulses: Peripheral pulses 2+ throughout Neuro General: patient oriented x3 Extrem Other: Knees are normal to inspection. She has full range of motion without pain. No tenderness to palpation. No laxity. Calf supple nontender neurovascularly intact. Results Reviewed Results Reviewed: X-rays of both knees obtained in the office today and reviewed by me are significant for mild medial compartment arthritis with patellofemoral arthritis. Assessment & Plan Assessment & Plan (1) Osteoarthritis of knees, bilateral: Code(s): M17.0 - Bilateral primary osteoarthritis of knee Category: Medical Plan: We discussed options today which include physical therapy. She we will contact the therapy department to make an appointment and an order was placed today. She was also fit for bilateral Genumed knee braces for support with ambulation. She was given a prescription for Celebrex to take with occasional flare-ups. If symptoms persist or worsen over the next 6-8 weeks she can contact our office to discuss steroid injections otherwise she will follow up as needed. Orders: Orders PT Evaluation and Treatment Today M17.0 - Bilateral primary osteoarthritis of knee XR Knee Oscar 3V Today M25.561 - Pain in right knee, M25.562 - Pain in left knee Medications: New celecoxib (Celebrex) 200 mg PO BID 60 caps 3RF 30 days Coding Level of Care Code New Pt Level 3 (78888) Complex EM visit Add On G2211 Diagnoses Osteoarthritis of knees, bilateral M17.0
[2024-08-25 10:55] VITALS: BMI 25.8
== END 2024-08-25 11:29 | disposition home or self-care (01) ==
LOC: HO.HOS 10:50
PROVIDERS: PCP Internal Medicine; Visit Provider Physician Assistant
DX: M17.0 Bilateral primary osteoarthritis of knee (principal)
CPT/HCPCS: 99203; G2211

== ENCOUNTER 2024-08-25 10:50 | Outpatient (REF) | payer OTHER, SELFPAY ==
--- NOTE | ~2024-08-25 | XR_ITS ---
CLINICAL HISTORY: knee pain 3 view bilateral knee Comparison: None Findings: Bones intact. No dislocations. No significant loss of joint space, osteophytes, or erosions. No joint effusion. No radiopaque foreign body. IMPRESSION: 1. No acute findings. This document has been electronically signed by: Carlo Mccracken MD on 08/26/2024 14:10:22
== END 2024-08-25 10:51 | disposition home or self-care (01) ==
LOC: HO.HOSX 10:50
PROVIDERS: PCP Internal Medicine; Visit Provider Physician Assistant
DX: M17.0 Bilateral primary osteoarthritis of knee (principal); M25.561 Pain in right knee; M25.562 Pain in left knee
CPT/HCPCS: 73562; 99202

== ENCOUNTER → 2024-08-25 10:57 | Outpatient (BNV) | payer OTHER, SELFPAY | PROVIDERS: PCP Internal Medicine; Visit Provider Specialist | DX: M25.561 Pain in right knee (principal); M25.562 Pain in left knee | CPT/HCPCS: 73562 ==

== ENCOUNTER 2024-09-06 07:45 | Outpatient (REF) | payer OTHER, SELFPAY ==
--- NOTE | ~2024-09-06 | US_ITS ---
CLINICAL HISTORY: K76.9 - Liver disease, unspecified US abdomen complete Comparison: None Findings: The visualized pancreas is normal. The aorta and inferior vena cava are normal caliber. The liver is normal in size and heterogeneously increased in echotexture. There is no intrahepatic bile duct dilatation. The common duct is 3 mm in diameter. The gallbladder is normal. There is no sonographic Little sign. The main portal vein is antegrade. The right kidney is 9.4 cm in length. The left kidney is 9.8 cm in length. The spleen is normal. No ascites. IMPRESSION: Mild hepatic steatosis. No focal lesion or acute process. This document has been electronically signed by: Humberto pU MD on 09/06/2024 12:46:19
== END 2024-09-06 07:46 | disposition home or self-care (01) ==
LOC: HO.US 07:45
PROVIDERS: PCP Internal Medicine; Visit Provider Nurse Practitioner
DX: K76.9 Liver disease, unspecified (principal)
CPT/HCPCS: 76700

== ENCOUNTER → 2024-09-06 07:47 | Outpatient (BNV) | payer OTHER, SELFPAY | PROVIDERS: PCP Internal Medicine; Visit Provider Radiology Vascular & Interventional Radiology | DX: K76.9 Liver disease, unspecified (principal) | CPT/HCPCS: 76700 ==

== ENCOUNTER 2024-10-11 08:08 | Day surgery (SDC) | payer OTHER, SELFPAY ==
[2024-10-06 14:21] VITALS: BMI 25.5
--- NOTE | 2024-10-10 08:32 | HO.ANESPROP2 ---
Documented by User: Mary Anne Kebede NP 10/10/24 08:32 HPI - Anesthesia Eval Consult details Narrative: 69yo F for Colonoscopy PMFSH Active Problems Active Problems: All Active Problems Osteoarthritis of knees, bilateral (Acute) Osteoporosis (Acute) Age related osteoporosis (Acute) Liver lesion (Acute) Left knee pain (Acute) Scoliosis (Acute) Lumbar degenerative disc disease (Acute) Tubulovillous adenoma of colon (Acute) Esophageal dysmotility (Acute) Esophageal stricture (Acute) Constipation (Acute) Dysphagia (Acute) Urge urinary incontinence (Acute) GERD (gastroesophageal reflux disease) (Acute) Physical exam (Acute) Depression with anxiety (Acute) Pure hypercholesterolemia (Acute) Arthrosis of knee (Acute) Right knee pain (Acute) Tubular adenoma of colon (Acute) Rhinitis (Acute) Family history of polyps in the colon (Acute) Impaired glucose tolerance (Acute) High cholesterol (Acute) Hypertension (Acute) Asthma (Acute) Past Medical History Medical History Scoliosis Dysphagia Anxiety Depression GERD (gastroesophageal reflux disease) Hemorrhoids Neck pain Hair loss Colon cancer screening Impaired glucose tolerance High cholesterol Hypertension Asthma Family History Family History Father No problems noted. Mother Hypertension Stroke Maternal Grandmother No problems noted. Maternal Grandfather No problems noted. Paternal Grandmother Diabetes Paternal Grandfather No problems noted. Paternal Aunt Cancer Other History of total abdominal hysterectomy and bilateral salpingo-oophorectomy Family history of problems with anesthesia: No Surgical History Surgical History Hx of colonoscopy History of total abdominal hysterectomy and bilateral salpingo-oophorectomy History of Problems with Anesthesia: No Social History Social History Household Members: None Housing: Other Housing Other:: Basement Are you a primary career services representative to a significant other at home: No Do you presently have visiting nurse or other home services: No Alcohol intake: current Alcohol intake frequency: does not drink Alcohol type: beer Patient Tobacco Use Status: Former Tobacco user Tobacco use type: Cigarette e-Cigarette/Vaping Use: Never Used Second Hand Smoke Exposure: No Substance Use Type: Marijuana Have you been hit, kicked, punched, or otherwise hurt by someone within the past year? If so, by whom?: No Are you DNR?: No Advance Directives: No Advance Directives Information Provided: Yes service: No Current occupational status: disabled Cognitive needs: No Hearing needs: No Vision needs: Yes Meds Allergies Allergy/AdvReac Type Severity Reaction Status Date / Time No Known Allergies (No Known Allergy Verified 08/25/24 11:04 Allergies*) Home Medications ?Medication ?Instructions ?Recorded ?Confirmed ?Last Taken ?Type cyanocobalamin (vitamin B-12) 1,000 mcg PO DAILY 10/02/23 10/11/24 Unknown History 1,000 mcg capsule Exam Height,Weight and Vital Signs: Height 5 ft 5 in Weight 69.4 kg Assessment and Plan Assessment Anesthesia Assessment: Chart Reviewed Final Anesthetic Review Family History of Problems with Anesthesia: No History of Problems with Anesthesia: No Documented by User: Aleksandra Marte MD 10/11/24 10:53 [facility] Past Medical History Medical History Scoliosis Dysphagia Anxiety Depression GERD (gastroesophageal reflux disease) Hemorrhoids Neck pain Hair loss Colon cancer screening Impaired glucose tolerance High cholesterol Hypertension Asthma Family History Family History Father No problems noted. Mother Hypertension Stroke Maternal Grandmother No problems noted. Maternal Grandfather No problems noted. Paternal Grandmother Diabetes Paternal Grandfather No problems noted. Paternal Aunt Cancer Other History of total abdominal hysterectomy and bilateral salpingo-oophorectomy Surgical History Surgical History Hx of colonoscopy History of total abdominal hysterectomy and bilateral salpingo-oophorectomy Social History Social History Household Members: None Housing: Other Housing Other:: Basement Are you a primary career services representative to a significant other at home: No Do you presently have visiting nurse or other home services: No Alcohol intake: current Alcohol intake frequency: does not drink Alcohol type: beer Patient Tobacco Use Status: Former Tobacco user Tobacco use type: Cigarette e-Cigarette/Vaping Use: Never Used Second Hand Smoke Exposure: No Substance Use Type: Marijuana Have you been hit, kicked, punched, or otherwise hurt by someone within the past year? If so, by whom?: No Are you DNR?: No Advance Directives: No Advance Directives Information Provided: Yes service: No Current occupational status: disabled Cognitive needs: No Hearing needs: No Vision needs: Yes Meds Allergies Allergy/AdvReac Type Severity Reaction Status Date / Time No Known Allergies (No Known Allergy Verified 08/25/24 11:04 Allergies*) Home Medications ?Medication ?Instructions ?Recorded ?Confirmed ?Last Taken ?Type cyanocobalamin (vitamin B-12) 1,000 mcg PO DAILY 10/02/23 10/11/24 Unknown History 1,000 mcg capsule Exam Airway Mallampati Class: II TM Dist: >3cm Neck ROM: Full Heart: rrr Lungs: cta Assessment and Plan Assessment Anesthesia Assessment: Anesthesia Plan Discussed Final Anesthetic Review NPO: Yes ASA Class: II Final Preanesthetic Review: No Changes in Pt Med Stat, Meds/Allgs Chart Reviewed, Consent Obtained/Reviewed and Anes Risks/Benef Reviewed Patient Risk: Intermediate Procedure Risk: Low Anesthetic Plan Anesthetic Plan: MAC: Disposition: Standard PACU
[2024-10-11 09:52] VITALS: BP 167/70; PULSE 73; RESP 18; TEMP 36.9; O2SAT 98; BMI 25.1
[2024-10-11] MEDS: Lactated Ringers 1,000 ML 100 ML IVCONT (10:12)
--- NOTE | 2024-10-11 10:48 | MHC.SHP ---
Pre-Procedural Eval Section A - 24 Hr Update-Section A only Date of Service: 10/11/24 Section B - Complete if H&P > 30 days Chief Complaint: Family history of hyperplastic colon polyps Relevant Family History (Specify if Yes): No Relevant Social History: None Present Medications: see Short Stay Collaborative assessment Medical History: Significant History (Hemorrhoids Conjunctivitis Neck pain Skin mole Syncope Hair loss Skin lesion Right knee pain Pre-op examination Physical exam Colon cancer screening Rhinitis Impaired glucose tolerance High cholesterol Hypertension Asthma) History of Previous Operations: Relevant previous surgery/procedure and date(s) ( Hx of colonoscopy History of total abdominal hysterectomy and bilateral salpingo-oophorectomy) Allergies: Allergies Allergy/AdvReac Type Severity Reaction Status Date / Time No Known Allergies (No Known Allergy Verified 08/25/24 11:04 Allergies*) Review of Systems Sugical H&P ROS: Negative: Constitution, Cardiovascular, Respiratory, Neurological, Psychiatric, Hem-Onc, Allergic/Immunologic, Gastrointestinal, Genitourinary, Musculoskeletal, Integumentary, Endocrine and Eyes/Ears/Nose/Throat Exam Surgical H&P Exam: Normal: HEENT, Normal: Heart, Normal: Lungs, Normal: Extremities, Normal: Abdomen, Normal: Skin and Normal: Neurological Plan Diagnosis/Plan: Unchanged I have reviewed the history and physical and performed a pertinent physical examination on my patient. No changes have occurred unless specified. Time Spent With Patient Time: Total time managing care of this patient today ____ minutes.
--- NOTE | 2024-10-11 11:29 | HO.OPN-COLON ---
Colonoscopy Operative Note Operative Note Date of Service: 10/11/24 Narrative: Operative Information Procedure Description: Colonoscopy Indication: screening with colowrap Anesthesia: MAC COLONOSCOPY Instrument: Olympus variable stiffness pediatric scope 190L Colonoscopy Monitoring: Vital signs and clinical assessment, continuous EKG monitoring, Pulse oximetry, Carbon Dioxide monitoring and blood pressure monitoring were done throughout the procedure. Colon withdrawal time was 16 minutes. Procedure: The patient was placed in the left lateral decubitis position and pre-procedure medications were administered. After a digital rectal examination of the ano-rectum, the video colonoscope was inserted into the rectum and advanced through the colon to the cecum/TI. The colonoscope was slowly withdrawn in a retrograde panoramic fashion and the colon mucosa was carefully examined including a retroflexed view of the rectum. Findings and interventions are described below. Procedure Difficulty: moderate Findings: Terminal Ileum-normal Cecum: x 2 sessile polyps Ascending Colon:moderate diverticulosis Transverse Colon -normal Descending Colon:normal Sigmoid Colon: moderate diverticulosis Rectum: Retroflexion with small internal hemorrhoids seen, grade I Anorectum - normal Intervention: cold forceps Colon preparation: [place] Bowel Preparation Scale Right colon; 2 Transverse colon: 2 Left colon; 2 (0 = Unprepared colon segment with mucosa not seen due to solid stool that cannot be cleared. 1 = Portion of mucosa of the colon segment seen, but other areas of the colon segment not well seen due to staining, residual stool and/or opaque liquid. 2 = Minor amount of residual staining, small fragments of stool and/or opaque liquid, but mucosa of colon segment seen well. 3 = Entire mucosa of colon segment seen well with no residual staining, small fragments of stool or opaque liquid) Impression and Post Procedure Diagnosis: diverticulosis colon polyps x 2 internal hemorrhoids Plan: High fiber diet leaflet Avoid straining at stool, epsom salts and sitz bath, anusol supps or cream Repeat Colonoscopy in 5 years or earlier if clinically indicated Above findings were reviewed with the patient and relevant handouts were provided if indicated.
[2024-10-11 11:34] VITALS: BP 106/80; PULSE 88; RESP 12; TEMP 36.1; O2SAT 94
[2024-10-11 11:49] VITALS: BP 141/68; PULSE 57; RESP 16; O2SAT 97
[2024-10-11] MEDS: Albuterol Sulfate (0.083%) 2.5 MG/3 ML VIAL.NEB INHALE (11:56)
--- NOTE | 2024-10-11 11:56 | PC.NURSE ---
Addendum entered by Carlos Enrique Campbell RN 10/11/24 12:38: patient cough productive, clear phlegm, States feels a little better , patient asking to go home. patient getting dressed. IV removed and intact. Addendum entered by Carlos Enrique Campbell RN 10/11/24 12:25: patient c/o chest tightness , Wheezing noted. O2 93-94% Room air. Dr. Marte at bedside to evaluate, patient given dexamethazone by Dr. Marte. Original Note: patient c/o sob feels like my asthma . Dr. Anderson at bedside. O2 98% 2L NC, LCTA. PRN Nebulizer updraft given
[2024-10-11 12:29] VITALS: BP 152/63; PULSE 98; RESP 16; TEMP 36.1; O2SAT 94
== END 2024-10-11 13:24 | disposition home or self-care (01) ==
PROVIDERS: PCP Internal Medicine; Visit Provider Internal Medicine Gastroenterology
PROC: 0DJD8ZZ Inspection of Lower Intestinal Tract, Via Natural or Artificial Opening Endoscopic (ICD-10-PCS; CPT 45378; principal; 2024-10-11 11:40)
DX: Z12.11 Encounter for screening for malignant neoplasm of colon (principal); D12.0 Benign neoplasm of cecum; K57.30 Diverticulosis of large intestine without perforation or abscess without bleeding; K64.0 First degree hemorrhoids; Z86.0101 Personal history of adenomatous and serrated colon polyps; Z83.719 Family history of colon polyps, unspecified; I10 Essential (primary) hypertension; E78.00 Pure hypercholesterolemia, unspecified; J45.909 Unspecified asthma, uncomplicated; Z87.891 Personal history of nicotine dependence; Z79.02 Long term (current) use of antithrombotics/antiplatelets; Z79.899 Other long term (current) drug therapy
CPT/HCPCS: 45380; 88305; J1100

== ENCOUNTER → 2024-10-11 08:08 | Outpatient (BNV) | payer OTHER, SELFPAY | PROVIDERS: PCP Internal Medicine; Visit Provider Internal Medicine Gastroenterology | DX: Z12.11 Encounter for screening for malignant neoplasm of colon (principal); K63.5 Polyp of colon; K64.8 Other hemorrhoids | CPT/HCPCS: 45380 ==

== ENCOUNTER 2024-10-13 13:33 | Outpatient (AMB) | payer OTHER, SELFPAY ==
[2024-10-13 13:38] VITALS: BP 158/70; PULSE 85; TEMP 36.9; O2SAT 97; BMI 25.1
--- NOTE | 2024-10-13 13:38 | AM.OFFWIN_ITS ---
Intake Vital Signs 10/13/24 13:38 Height 5 ft 5 in Weight 151 lb BMI 25.1 BP 158/70 H Blood Pressure Location Lt brachial Position Sitting Pulse 85 Pulse Source Pulse Oximeter Temp 98.5 F Temp Source Oral Pulse Oximetry (%) 97 Oxygen Delivery Method Room Air Intake Visit Reasons: EP Asthma, wheezing, coughing Intake Note: presents with productive cough and wheezing after colonscopy 10/11 Patient Tobacco Use Status: Former Tobacco user Allergies No Known Allergies (No Known Allergies*) Allergy (Verified 10/13/24 13:43) Do you need a note to return to daycare/school/sports/work: No HPI HPI Comments History of Present Illness Details 69 y/o Female patient who presents to [facility] walk in clinic with c/o Wheezing and SOB for 2 days now. Pt reports that symptoms started 10/11 after she had Colonoscopy. She developed Wheezing and SOB in the recovery room immediately after the procedure. Reports that she was given Albuterol with some relief. She does have h/o Asthma and she was recently admitted (2 months ago) to the hospital for Asthma exacerbation. [facility] Medical History (Updated 10/13/24 @ 15:03 by Trish Rivera NP) Asthma with acute exacerbation Scoliosis Dysphagia Anxiety Depression GERD (gastroesophageal reflux disease) Hemorrhoids Neck pain Hair loss Colon cancer screening Impaired glucose tolerance High cholesterol Hypertension Asthma Surgical History Hx of colonoscopy History of total abdominal hysterectomy and bilateral salpingo-oophorectomy Family History Father No problems noted. Mother Hypertension Stroke Maternal Grandmother No problems noted. Maternal Grandfather No problems noted. Paternal Grandmother Diabetes Paternal Grandfather No problems noted. Paternal Aunt Cancer Other History of total abdominal hysterectomy and bilateral salpingo- oophorectomy Social History Household Members: None Housing: Other Housing Other:: Basement Are you a primary wound care specialist to a significant other at home: No Do you presently have visiting nurse or other home services: No Alcohol intake: current Alcohol intake frequency: does not drink Alcohol type: beer Patient Tobacco Use Status: Former Tobacco user Tobacco use type: Cigarette e-Cigarette/Vaping Use: Never Used Second Hand Smoke Exposure: No Substance Use Type: Marijuana service: No Current occupational status: disabled Cognitive needs: No Hearing needs: No Vision needs: Yes Review of Systems Const All systems reviewed & are unremarkable except as noted in HPI and below Physical Exam Vital Signs: Last Vital Signs Temp 98.5 F 10/13/24 13:38 Pulse 85 10/13/24 13:38 BP 158/70 H 10/13/24 13:38 Pulse Ox 97 10/13/24 13:38 Oxygen Delivery Method Room Air 10/13/24 13:38 BMI result Body Mass Index 25.1 Const General: no acute distress Nutritional Appearance: well nourished Orientation/consciousness: patient oriented x3 Resp Effort & Inspection: normal respiratory effort, able to speak in complete sentences and audible wheezes Auscultation: no crackles, no rales, rhonchi and wheezes Cardio Heart sounds: S1 normal heart sound present and S2 normal heart sound present Neuro General: patient oriented x3 Office Procedures Nebulizer Treatment Nebulizer Treatment [id number]-[id number]/MDI RX initial, or Nebulizer Subsequent Treatment Office Meds ipratropium 0.5 mg-albuterol 3 mg (2.5 mg base)/3 mL nebulization soln Performing Provider: Trish Rivera NP Performing Location: [facility]-In [facility] Administered by: Trish Rivera NP on 10/13/24 14:29 Dose Route Admin Location Dispensed Lot Number Expiration Date [facility] 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 3 mL inhalation 3 mL Assessment & Plan Assessment & Plan (1) Asthma with acute exacerbation: Code(s): J45.901 - Unspecified asthma with (acute) exacerbation Qualifiers: Asthma severity: moderate Asthma persistence: persistent Qualified Code(s): J45.41 - Moderate persistent asthma with (acute) exacerbation Plan: Ordered Chest Xray to r/o Pneumonia or PE Ordered Doxy and Prednisone Continue using Albuterol inhaler at home q4-6 hours Orders: Orders XR chest 2V Today J45.901 - Unspecified asthma with (acute) exacerbation AMB Nebulizer Treatment Today J45.901 - Unspecified asthma with (acute) exacerbation Medications: New prednisone 50 mg PO DAILY 5 tabs 0RF 5 days J45.901 - Unspecified asthma with (acute) exacerbation doxycycline hyclate 100 mg PO BID 20 caps 0RF 10 days J45.901 - Unspecified asthma with (acute) exacerbation Coding Level of Care Code Est Pt Level 4 (92836) Diagnoses Moderate persistent asthma with acute exacerbation J45.41 Asthma severity: moderate Asthma persistence: persistent CPT Codes Nebulizer Treatment - Nebulizer Treatment, initial or subsequent: [id number]/MDI RX initial, or Nebulizer Subsequent Treatment ([id number]) Time Spent (min) 20
== END 2024-10-13 14:48 | disposition home or self-care (01) ==
PROVIDERS: PCP Internal Medicine; Visit Provider Nurse Practitioner Family
DX: J45.901 Unspecified asthma with (acute) exacerbation (principal); J45.41 Moderate persistent asthma with (acute) exacerbation

== ENCOUNTER 2024-10-13 13:33 | Outpatient (REF) | payer OTHER, SELFPAY ==
--- NOTE | ~2024-10-13 | XR_ITS ---
EXAMINATION: XR CHEST CLINICAL INFORMATION: J45.901 - Unspecified asthma with (acute) exacerbation COMPARISON: 08/21/2024, 08/12/2017. TECHNIQUE: 2 views of the chest were obtained. FINDINGS: The cardiac, hilar, and mediastinal contours are normal. Mild pulmonary hyperaeration. The lungs are clear bilaterally. There is no pneumothorax or pleural effusion. Stable focus of sclerosis in the left glenoid, likely a bone island. No additional bony or soft tissue abnormalities. XR/XR chest 2V IMPRESSION: No active pulmonary disease. Electronically signed by: Toño Galvin MD 10/13/2024 02:39 PM EDT
== END 2024-10-13 13:34 | disposition home or self-care (01) ==
LOC: HO.HMGCX 13:33
PROVIDERS: PCP Internal Medicine; Visit Provider Nurse Practitioner Family
DX: J45.41 Moderate persistent asthma with (acute) exacerbation (principal)
CPT/HCPCS: 71046; 94640; 99212

== ENCOUNTER → 2024-10-13 14:19 | Outpatient (BNV) | payer OTHER, SELFPAY | PROVIDERS: PCP Internal Medicine; Visit Provider Radiology Diagnostic Radiology | DX: J45.901 Unspecified asthma with (acute) exacerbation (principal) | CPT/HCPCS: 71046 ==

== ENCOUNTER 2024-10-26 12:44 | Outpatient (AMB) | payer OTHER, SELFPAY ==
--- NOTE | 2024-10-26 12:47 | MHC.OFFVIS ---
Vital Signs 10/26/24 12:48 Height 5 ft 5 in Weight 151 lb 8 oz BMI 25.2 BP 110/80 Blood Pressure Location Rt brachial Position Sitting Pulse 95 Pulse Source Pulse Oximeter Pulse Oximetry (%) 95 Oxygen Delivery Method Room Air Intake Visit Reasons: 2 months Intake Note: Patient presents today for an osteoporosis visit. Salvage Winder And Inspector Required: Yes Salvage Winder And Inspector Services: Salvage Winder And Inspector Present Salvage Winder And Inspector Name: toi [id number] Information Interpreted: non-clinical & clinical Accompanied by: Self / Same As Patient Allergies No Known Allergies (No Known Allergies*) Allergy (Verified 10/26/24 12:50) HPI HPI 2 months: Details: She feels well. Tolerating fosamax. Still taking vitamin D 50, 000IU weekly. She took calcium for 1 month. [facility] Medical History Asthma with acute exacerbation Scoliosis Dysphagia Anxiety Depression GERD (gastroesophageal reflux disease) Hemorrhoids Neck pain Hair loss Colon cancer screening Impaired glucose tolerance High cholesterol Hypertension Asthma Surgical History Hx of colonoscopy History of total abdominal hysterectomy and bilateral salpingo-oophorectomy Family History Father No problems noted. Mother Hypertension Stroke Maternal Grandmother No problems noted. Maternal Grandfather No problems noted. Paternal Grandmother Diabetes Paternal Grandfather No problems noted. Paternal Aunt Cancer Other History of total abdominal hysterectomy and bilateral salpingo-oophorectomy Social History Household Members: None Housing: Other Housing Other:: Basement Are you a primary primary care sales representative to a significant other at home: No Do you presently have visiting nurse or other home services: No Alcohol intake: current Alcohol intake frequency: does not drink Alcohol type: beer Patient Tobacco Use Status: Former Tobacco user Tobacco use type: Cigarette e-Cigarette/Vaping Use: Never Used Second Hand Smoke Exposure: No Substance Use Type: Marijuana service: No Current occupational status: disabled Cognitive needs: No Hearing needs: No Vision needs: Yes Physical Exam Vital Signs: Last Vital Signs Pulse 95 10/26/24 12:48 BP 110/80 10/26/24 12:48 Pulse Ox 95 10/26/24 12:48 Oxygen Delivery Method Room Air 10/26/24 12:48 BMI result Body Mass Index 25.2 Const Other: General: Comfortable Skin: No lesions seen MSK: No tenderness of any joint. Normal range of motion of upper extremities and lower extremities. No synovitis. Normal cervical range of motion. Limited full lumbar flexion. Results Reviewed Results Reviewed: Ordering Physician: Renetta Sutherland MD Results: Date of Service: 08/03/24 Follow Up: Procedure(s): XR DEXA axial skeleton Accession Number(s): [id number] cc: Renetta Sutherland MD~ EXAMINATION: DXA BONE DENSITY AXIAL HISTORY: Z78.0 - Asymptomatic menopausal state TECHNIQUE: [employer] Dual energy absorptiometry (DEXA) of the lumbar spine, total left hip, and femoral neck was performed. COMPARISON: There are no prior studies for comparison. FINDINGS: The bone mineral density of the lumbar spine is 0.801 with a T-score of -3.2, and a Z-score of -1.6. This is indicative of osteoporosis. The bone mineral density of the left total hip is 0.788 with a T-score of -1.7, and a Z-score of -0.4. This is indicative of osteopenia. The bone mineral density of the left femoral neck is 0.811 with a T-score of -1.6, and a Z-score of 0.0. This is indicative of osteopenia. Assessment & Plan Assessment & Plan (1) Osteoporosis: Comment: She is tolerating alendronate. Vitamin-D deficient on repletion. Labs to assess secondary causes of OP were normal. Rheumatology history: Osteoporosis without fragility fracture. DXA 07/2024 lowest T-score -3.2 lumbar spine,-1.7 total hip,-1.6 left femoral neck. Alendronate started 08/2024. Code(s): M81.0 - Age-related osteoporosis without current pathological fracture Category: Medical Qualifiers: Osteoporosis type: age-related Presence of current pathological fracture: without current pathological fracture Qualified Code(s): M81.0 - Age-related osteoporosis without current pathological fracture Plan: Vitamin-D ergocalciferol 28777 IU weekly for 12 weeks total prescribed last visit. vitamin D level ordered after to be done after she completes vitamin-D course She will take Calcium carbonate 500 mg twice a day prescribed She will need maintenance combination calcium and vitamin-D tablet after ergocalciferol course is completed Bone density due after July 2026 Return to clinic 1 year (2) Vitamin D deficiency: Code(s): E55.9 - Vitamin D deficiency, unspecified Category: Medical Plan: On supplement Recheck vitamin-D after she completes 12 weeks of ergocalciferol 77960 IU weekly Orders: Orders Vitamin D 25-OH Total Today E55.9 - Vitamin D deficiency, unspecified Coding Level of Care Code Est Pt Level 4 (15117) Complex EM visit Add On G2211 Diagnoses Age-related osteoporosis without current pathological fracture M81.0 Osteoporosis type: age-related Presence of current pathological fracture: without current pathological fracture Vitamin D deficiency E55.9
[2024-10-26 12:48] VITALS: BP 110/80; PULSE 95; O2SAT 95; BMI 25.2
== END 2024-10-26 13:26 | disposition home or self-care (01) ==
LOC: HO.RHES 12:45
PROVIDERS: PCP Internal Medicine; Visit Provider Internal Medicine Rheumatology
DX: M81.0 Age-related osteoporosis without current pathological fracture (principal); E55.9 Vitamin D deficiency, unspecified
CPT/HCPCS: 99214; G2211

== ENCOUNTER → 2024-10-26 12:44 | Outpatient (BNVA) | payer OTHER, SELFPAY | PROVIDERS: PCP Internal Medicine; Visit Provider Internal Medicine Rheumatology | DX: K21.9 Gastro-esophageal reflux disease without esophagitis (principal); K59.00 Constipation, unspecified; D12.6 Benign neoplasm of colon, unspecified; M81.0 Age-related osteoporosis without current pathological fracture; E55.9 Vitamin D deficiency, unspecified; Z78.0 Asymptomatic menopausal state; Z79.83 Long term (current) use of bisphosphonates | CPT/HCPCS: 99212 ==

== ENCOUNTER 2024-10-26 15:54 | Outpatient (AMB) | payer OTHER, SELFPAY ==
[2024-10-26 16:06] VITALS: BP 109/58; PULSE 71; BMI 25.0
--- NOTE | 2024-10-26 16:06 | MHC.OFFVIS ---
Vital Signs 10/26/24 16:06 Height 5 ft 5 in Weight 150 lb 5.684 oz BMI 25.0 BP 109/58 L Blood Pressure Location Lt brachial Position Sitting Pulse 71 Intake Visit Reasons: s/p colo Anderson Intake Note: Lulu returns to office in follow up s/p colonoscopy. CC: Patient reports trouble having a BM. Denies other GI symptoms. 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 Accompanied by: Self / Same As Patient Allergies No Known Allergies (No Known Allergies*) Allergy (Verified 10/26/24 16:18) HPI HPI s/p colo Anderson: Details: Assessment & Plan (1) Tubulovillous adenoma of colon: Comment: scope Code(s): D12.6 - Benign neoplasm of colon, unspecified Category: Medical (2) Family history of polyps in the colon: Comment: SISTER, last scoped 2020 repeat 3-5 years Code(s): Z83.71 - Family history of colonic polyps Category: Medical (3) Tubular adenoma of colon: Comment: TVA 05/2023 scope, repeat 1 year; 08/2020 scope repeat 3-5 years Code(s): D12.6 - Benign neoplasm of colon, unspecified Category: Medical (4) Liver lesion: Comment: Pt states someone told her she had spots on her liver, normal transaminases Code(s): K76.9 - Liver disease, unspecified Category: Medical (5) Esophageal stricture: Code(s): K22.2 - Esophageal obstruction Category: Medical (6) GERD (gastroesophageal reflux disease): Code(s): K21.9 - Gastro-esophageal reflux disease without esophagitis Category: Medical Plan [place] #[id number] She has not yet heard about scheduling the repeat colonoscopy that would be due in November r/t TVA. I will put order and scheduling request in. She is agreeable. She has been doing well w/o any dysphagia since her esphageal dilation and staying on her esomeprazole EVERY DAY. She is drinking a yerba mate tea and asks if it is alright. It has regulated her bowels and bloating, and despite having lemon and hui does not cause her GERD so I say its ok to continue. She says someone told her she had spots on liver, but I think she mistook what I said when I described her gastritis - I was not evaluating her liver. She has no recent imaging studies and her transaminases are normal, but will order an US to put her mind at rest. Her asthma is well controlled and she denies any cardiac problems. There are no prior problems with anesthesia or sedation There are no ID problems. ROV 6 mos. She has a door knob request that I run test for the masses on my neck, saying she was seeing a specialist on [place] and was supposed to have test done but she did not. I don't know what they were looking for, but she gives me a name and it is a physician at [facility] - since I don't know the background and it seems out of my specialy I kindly refer her to discuss this with Dr. Carolina who is the PCP and likely ther referring provider. Orders: Orders Colonoscopy - GI Use Only Today D12.6 - Benign neoplasm of colon, unspecified, Z83.71 - Family history of colonic polyps US abdomen complete Today K76.9 - Liver disease, unspecified Medications: New peg 3350-electrolytes 236-22.74-6.74 -5.86 gram (Golytely) until fecal effluent is clear; do not exceed a total volume of 2,000 mL 240 mL PO Q10M 1 day 4,000 mL 0RF Z12.11 - Encounter for screening for malignant neoplasm of colon bisacodyl (Dulcolax (bisacodyl)) 10 mg (2 x 5 mg) PO BEDTIME 2 days 4 tabs 0RF Refilled esomeprazole magnesium 20 mg PO DAILY 90 caps 2RF sennosides (Senna Laxative) 17.2 mg (2 x 8.6 mg) PO BEDTIME 60 tabs 6RF K59.00 - Constipation, unspecified COLONOSCOPY 10/11/24 Findings: Terminal Ileum-normal Cecum: x 2 sessile polyps Ascending Colon:moderate diverticulosis Transverse Colon -normal Descending Colon:normal Sigmoid Colon: moderate diverticulosis Rectum: Retroflexion with small internal hemorrhoids seen, grade I Anorectum - normal Intervention: cold forceps Impression and Post Procedure Diagnosis: diverticulosis colon polyps x 2 internal hemorrhoids Plan: High fiber diet leaflet Avoid straining at stool, epsom salts and sitz bath, anusol supps or cream Repeat Colonoscopy in 5 years or earlier if clinically indicated BIOPSY Received: 10/11/24 Diagnosis Colon, cecal polyps: Tubular adenoma (1 piece); negative for high-grade dysplasia and carcinoma, and colonic mucosa with minor crypt distortion and no adenomatous dysplasia (3 pieces US ABD 09/2024 Findings: The visualized pancreas is normal. The aorta and inferior vena cava are normal caliber. The liver is normal in size and heterogeneously increased in echotexture. There is no intrahepatic bile duct dilatation. The common duct is 3 mm in diameter. The gallbladder is normal. There is no sonographic Little sign. The main portal vein is antegrade. The right kidney is 9.4 cm in length. The left kidney is 9.8 cm in length. The spleen is normal. No ascites. IMPRESSION: Mild hepatic steatosis. No focal lesion or acute process. This document has been electronically signed by: Humberto Up MD on 09/06/2024 12:46:19 TODAY'S VISIT [place] #V Live The procedure needs to be repeated in 5 years due to its finding tubular adenoma. She says she had a severe asthma attack after the colonoscopy, she presented to the walk in clinic and had CXR that was clear, but this problem did not clear up until she had doxycycline added to prednisone. Apparently, she was hospitalized for a severe asthma attack a month or so prior to her colonoscopy. She was aslo told once in the ER that she had a hemorrhoid as she presented there for rectal itching - but these did not look bad on colonoscopy. The results were explained and the patient is agreeable to the follow-up interval as stated. The bowel pattern has returned to normal. Education was provided to tell any 1st degree relatives about their findings to be sure that they are screened by age 45. Educated that they will be put on a recall list when it is time for their repeat scope but should they move out of state or away from the hospital they will need to remember along with their primary to repeat the procedure in a timely fashion to avoid any adverse complications. Her GI regimen consists of esomeprazole daily, along with senna 2 at night. ROV 6 mos. PFSH Medical History (Updated 10/26/24 @ 16:11 by KEDAR Rodriguez) Dysphagia Liver lesion Family history of polyps in the colon Tubulovillous adenoma of colon Asthma with acute exacerbation Scoliosis Dysphagia Anxiety Depression GERD (gastroesophageal reflux disease) Hemorrhoids Neck pain Hair loss Colon cancer screening Impaired glucose tolerance High cholesterol Hypertension Asthma Surgical History Hx of colonoscopy History of total abdominal hysterectomy and bilateral salpingo-oophorectomy Family History Father No problems noted. Mother Hypertension Stroke Maternal Grandmother No problems noted. Maternal Grandfather No problems noted. Paternal Grandmother Diabetes Paternal Grandfather No problems noted. Paternal Aunt Cancer Other History of total abdominal hysterectomy and bilateral salpingo-oophorectomy Social History Household Members: None Housing: Other Housing Other:: Basement Are you a primary wound care technician to a significant other at home: No Do you presently have visiting nurse or other home services: No Alcohol intake: current Alcohol intake frequency: does not drink Alcohol type: beer Patient Tobacco Use Status: Former Tobacco user Tobacco use type: Cigarette e-Cigarette/Vaping Use: Never Used Second Hand Smoke Exposure: No Substance Use Type: Marijuana service: No Current occupational status: disabled Cognitive needs: No Hearing needs: No Vision needs: Yes Review of Systems Const Denies fatigue, Denies fever(s), Denies night sweats, Denies poor appetite and Denies weight loss ENT Reports Normal hearing present, Denies dental pain, Denies dysphagia, Denies hearing loss, Denies mouth pain, Denies odynophagia, Denies throat swelling, Denies tongue swelling and Reports other (Dentition adequate) Card Reports no additional complaints Resp Reports no additional complaints GI Details: Denies abdominal pain, Denies melena, Denies bloating, Denies hematochezia, Reports constipation, Denies GI cramping, Denies dysphagia, Denies excessive flatus, Denies early satiety, Reports heartburn, Denies diarrhea, Denies nausea, Denies odynophagia, Denies vomiting and Denies hematemesis Skin/Breast Denies pruritus, Denies lesions, Denies rash and Denies jaundice Neuro Reports Normal hearing present and Denies Abnormal speech present Endo Denies fatigue Aller/Immun Denies throat swelling and Denies tongue swelling Physical Exam Const General: cooperative, no acute distress, well developed and well groomed Nutritional Appearance: well nourished and overweight Orientation/consciousness: oriented to person, oriented to place and oriented to time Limitations: language barrier HEENT Head: Yes normocephalic and Yes atraumatic Eyes General: appearance normal, both eyes and all related structures Pupils: Equal, round and reactive pupils present Neck Neck: Yes normal visual inspection and Yes no lymphadenopathy Thyroid: Thyroid normal Resp Effort & Inspection: normal respiratory effort and able to speak in complete sentences Auscultation: clear to auscultation bilaterally Cardio Rate: regular rate Rhythm: regular rhythm Heart sounds: Normal, physiologic split S2 sound present Peripheral pulses: radial pulses present and posterior tibial pulses present GI Inspection: No distended, No Abdominal panniculus present and Yes obesity Palpation (GI): Soft to palpation, nontender, no guarding, not rigid and No hepatosplenomegaly present Percussion: Yes normal to percussion Auscultation: normal bowel sounds Rectal Exam - Female: deferred Skin General skin exam: no rashes or lesions noted, turgor normal, skin not dry, no jaundice, No spider nevi and no striae Rashes: no rashes Nails: normal Neuro General: oriented to person, oriented to place and oriented to time Cranial nerves: Yes Equal, round and reactive pupils present and Yes Normal hearing present Speech: No Abnormal speech present Extrem General: Yes normal to inspection, No clubbing, No cyanosis and No edema Psych Appearance: grossly normal and well kempt Mental Status: mental status grossly normal Speech and movement: Normal speech and movement present Affect: normal affect Attitude: cooperative Thought process: Normal thought process present and not confabulating Thought content: Normal thought content present Insight: Limited insight present (Psych) Judgement: Limited judgement present (Psych) Assessment & Plan Assessment & Plan (1) GERD (gastroesophageal reflux disease): Code(s): K21.9 - Gastro-esophageal reflux disease without esophagitis Category: Medical (2) Constipation: Code(s): K59.00 - Constipation, unspecified Category: Medical (3) Tubular adenoma of colon: Comment: 10/2024 scope= 2 TA is repeat in 5 years; TVA 05/2023 scope, repeat 1 year; 08/2020 scope repeat 3-5 years Code(s): D12.6 - Benign neoplasm of colon, unspecified Category: Medical Plan [place] #V Live The procedure needs to be repeated in 5 years due to its finding tubular adenoma. She says she had a severe asthma attack after the colonoscopy, she presented to the walk in clinic and had CXR that was clear, but this problem did not clear up until she had doxycycline added to prednisone. Apparently, she was hospitalized for a severe asthma attack a month or so prior to her colonoscopy. She was aslo told once in the ER that she had a hemorrhoid as she presented there for rectal itching - but these did not look bad on colonoscopy. The results were explained and the patient is agreeable to the follow-up interval as stated. The bowel pattern has returned to normal. Education was provided to tell any 1st degree relatives about their findings to be sure that they are screened by age 45. Educated that they will be put on a recall list when it is time for their repeat scope but should they move out of state or away from the hospital they will need to remember along with their primary to repeat the procedure in a timely fashion to avoid any adverse complications. Her GI regimen consists of esomeprazole daily, along with senna 2 at night. ROV 6 mos. Coding Level of Care Code Est Pt Level 3 (65311) Diagnoses GERD (gastroesophageal reflux disease) K21.9 Constipation K59.00 Tubular adenoma of colon D12.6
== END 2024-10-26 16:42 | disposition home or self-care (01) ==
LOC: HO.HGI 15:55
PROVIDERS: PCP Internal Medicine; Visit Provider Nurse Practitioner
DX: K21.9 Gastro-esophageal reflux disease without esophagitis (principal); K59.00 Constipation, unspecified; D12.6 Benign neoplasm of colon, unspecified
CPT/HCPCS: 99213

== ENCOUNTER 2024-11-28 12:25 | Outpatient (REF) | payer OTHER, SELFPAY ==
[2024-11-28 13:49] LABS: Alanine Aminotransferase 28 U/L (0-31); Albumin Level 4.5 g/dL (3.5-5.0); Alkaline Phosphatase 70 U/L (39-117); Anion Gap 13 (12-20); Aspartate Amino Transferase 25 U/L (5-31); Blood Urea Nitrogen 13 mg/dL (9-16); Calcium 9.5 mg/dL (8.4-10.2); Carbon Dioxide 24 mmol/L (22-29); Chloride 108 mmol/L (96-108); Cholesterol 199 mg/dL (<200); Estimated Glomerular Filt Rate > 60; HDL Cholesterol 50 mg/dL (>40); Potassium 3.9 mmol/L (3.3-5.1); Sodium 141 mmol/L (135-145); Total Protein 7.5 g/dL (6.5-8.0); Triglycerides 106 mg/dL (<150)
[2024-11-28 14:14] LABS: Folate 14.4 ng/mL (> or = 4.0); Vitamin B12 632 pg/mL (200-900)
== END 2024-11-28 12:26 | disposition home or self-care (01) ==
LOC: HO.LAB 12:25
PROVIDERS: PCP Internal Medicine; Visit Provider Internal Medicine Rheumatology
DX: E53.8 Deficiency of other specified B group vitamins (principal); E78.5 Hyperlipidemia, unspecified; E55.9 Vitamin D deficiency, unspecified; M51.369 Other intervertebral disc degeneration, lumbar region without mention of lumbar back pain or lower extremity pain
CPT/HCPCS: 36415; 80053; 80061; 82306; 82607; 82746

== ENCOUNTER 2025-01-03 16:28 | Outpatient (AMB) | payer OTHER, SELFPAY ==
[2025-01-03 16:51] VITALS: BP 100/58; PULSE 67; RESP 18; TEMP 36.3; O2SAT 97; BMI 25.1
--- NOTE | 2025-01-03 16:51 | MHC.PC.OV ---
Vital Signs 01/03/25 16:51 Height 5 ft 5 in Weight 151 lb BMI 25.1 BP 100/58 L Blood Pressure Location Lt brachial Position Sitting Respiration 18 Pulse 67 Pulse Source Pulse Oximeter Temp 97.3 F Temp Source Temporal Artery Scan Pulse Oximetry (%) 97 Oxygen Delivery Method Room Air Intake Visit Reasons: depression Night Filler Required: No Accompanied by: Self / Same As Patient Allergies No Known Allergies (No Known Allergies*) Allergy (Verified 01/03/25 17:22) Medication List - Last Reconciled 01/03/25 by Renetta Argueta MD albuterol sulfate 90 mcg/actuation 2 puffs inhalation Q4-6H PRN albuterol sulfate 2.5 mg (3 mL) inhalation Q6H PRN alendronate 70 mg PO QWEEK 12 weeks calcium carbonate 500 mg PO BID celecoxib (Celebrex) 200 mg PO BID 30 days enalapril maleate 20 mg PO DAILY 90 days esomeprazole magnesium 20 mg PO DAILY gabapentin 300 mg PO BEDTIME 30 days Grab bar As directed incontinence pad, liner, disp Use 1 pad 6 times a day nebulizers (Aeroneb Go Nebulizer) As directed [recliner As directed] simvastatin 20 mg PO BEDTIME underpads (Bed Underpads) Use 1 pad once a day Tobacco use date assessed: 01/03/25 Fall risk assessment: No Falls in past year Last assessed Fall Risk: 01/03/25 Dental Screening Dental Screen Date: 01/03/25 Did you have a dental visit in the last 12 months?: Yes Did you have a dental problem in the last 6 months where you did not have access to dental care?: No Was dental information given to patient?: Patient has dentist HPI HPI Comments History of Present Illness Details The patient is a 69-year-old female presenting with management of chronic conditions and acute symptoms. The patient has osteoporosis, managed with weekly alendronate and calcium supplements following a densitometry test in July. Hypertension is managed with enalapril, recently reduced to 10 mg due to low blood pressure readings, a recurring issue. Hyperlipidemia is controlled with simvastatin 20 mg. Incontinence is managed with regular use of incontinence pads. The patient experienced a cough with phlegm, improving since Thursday after a VK visit, initially accompanied by body pain and significant coughing. Eye irritation with morning scabbing is managed with Refresh eye drops, though the issue persists despite cleaning. [facility] Medical History Dysphagia Liver lesion Family history of polyps in the colon Tubulovillous adenoma of colon Asthma with acute exacerbation Scoliosis Dysphagia Anxiety Depression GERD (gastroesophageal reflux disease) Hemorrhoids Neck pain Hair loss Colon cancer screening Impaired glucose tolerance High cholesterol Hypertension Asthma Surgical History Hx of colonoscopy History of total abdominal hysterectomy and bilateral salpingo-oophorectomy Family History Father No problems noted. Mother Hypertension Stroke Maternal Grandmother No problems noted. Maternal Grandfather No problems noted. Paternal Grandmother Diabetes Paternal Grandfather No problems noted. Paternal Aunt Cancer Other History of total abdominal hysterectomy and bilateral salpingo-oophorectomy Social History Household Members: None Housing: Other Housing Other:: Basement Are you a primary assurance services manager health care to a significant other at home: No Do you presently have visiting nurse or other home services: No Alcohol intake: current Alcohol intake frequency: does not drink Alcohol type: beer Patient Tobacco Use Status: Former Tobacco user Tobacco use type: Cigarette e-Cigarette/Vaping Use: Never Used Second Hand Smoke Exposure: No Substance Use Type: Marijuana service: No Current occupational status: disabled Cognitive needs: No Hearing needs: No Vision needs: Yes Questionnaire Thrive Questionnaire Date Thrive assessed: 06/30/24 I am a: Patient What is your living situation today?: I choose not to answer this question Within the past 12 months, did the food you bought not last and you didn't have the money to get more?: I choose not to answer this question Within the past 12 months, did you worry whether your food would run out before you got money to buy more?: I choose not to answer this question Do you have trouble paying for medicines?: No Do you have trouble getting transportation to medical appointments?: No Do you have trouble paying your heating and electricity bill?: No Do you have trouble taking care of your child, family member or friend?: I choose not to answer this question Do you have trouble with day-to-day activities such as bathing, preparing meals, shopping, managing finances, etc.?: Yes Are you currently unemployed and looking for a job?: No Are you interested in more education?: I choose not to answer this question Please select the resources that you would like help with: Transportation Currently or been in a relationship where the following occur: No concerns reported THRIVE Score: 0 DANIEL-7 AMB Questionnaire DANIEL-7 Date DANIEL - 7 assessed: 06/30/24 Source: Developed by Drs. Michel Garcia, Deysi Gerard, Torito Mireles and colleagues, with an educational malia from [employer]. Review of Systems Const All systems reviewed & are unremarkable except as noted in HPI and below Card Denies chest pain at rest, Denies chest pain with activity, Denies edema, Denies irregular heart rhythm, Denies claudication, Denies dyspnea, Denies dyspnea on exertion, Denies orthopnea, Denies paroxysmal nocturnal dyspnea and Denies slow heart rate Resp Denies cough, Denies dyspnea and Denies dyspnea on exertion Physical exam (Primary Care) Vital Signs: Last Vital Signs Temp 97.3 F 01/03/25 16:51 Pulse 67 01/03/25 16:51 Resp 18 01/03/25 16:51 BP 100/58 L 01/03/25 16:51 Pulse Ox 97 01/03/25 16:51 Oxygen Delivery Method Room Air 01/03/25 16:51 BMI result Body Mass Index 25.1 Tobacco/Smoking Status: Tobacco use Status Tobacco use date assessed 01/03/25 01/03/25 17:00 Patient Tobacco Use Status Former Tobacco user 01/03/25 17:00 Tobacco use type Cigarette 01/03/25 17:00 e-Cigarette/Vaping Use Never Used 01/03/25 17:00 Thrive Assessment: Date of Thrive Assessment Date Thrive assessed 06/30/24 01/03/25 17:00 Currently or been in a relationship where the following occur: No concerns reported Resp Effort & Inspection: normal respiratory effort Auscultation: clear to auscultation bilaterally Cardio Jugular venous distension: no JVD Rate: regular rate Rhythm: regular rhythm Heart sounds: S1 normal heart sound present and S2 normal heart sound present Extrem General: Yes full ROM Coding Level of Care Code Est Pt Level 4 (34379) Complex EM visit Add On G2211 Diagnoses Essential hypertension I10 Hypertension type: essential hypertension Pure hypercholesterolemia E78.00 Age related osteoporosis M81.0 Moderate persistent asthma with acute exacerbation J45.41 Asthma severity: moderate Asthma persistence: persistent Asthma complication type: with acute exacerbation Time Spent (min) 21 Assessment & Plan Assessment & Plan (1) Hypertension: Code(s): I10 - Essential (primary) hypertension Category: Medical Qualifiers: Hypertension type: essential hypertension Qualified Code(s): I10 - Essential (primary) hypertension (2) Pure hypercholesterolemia: Code(s): E78.00 - Pure hypercholesterolemia, unspecified Category: Medical (3) Age related osteoporosis: Code(s): M81.0 - Age-related osteoporosis without current pathological fracture Category: Medical (4) Asthma: Code(s): J45.909 - Unspecified asthma, uncomplicated Category: Medical Qualifiers: Asthma severity: moderate Asthma persistence: persistent Asthma complication type: with acute exacerbation Qualified Code(s): J45.41 - Moderate persistent asthma with (acute) exacerbation Plan Plan Patient was informed and verbally consented to the use of an ambient scribe for clinic note documentation during this visit. 1. Osteoporosis The patient is on alendronate and calcium supplements for osteoporosis management, with continued adherence advised. 2. Hypertension Enalapril dosage reduced to 10 mg due to low blood pressure; monitoring is recommended. 3. Hyperlipidemia Simvastatin 20 mg is effectively managing hyperlipidemia. 4. Incontinence Regular use of incontinence pads is advised. 5. Preventative Care: Colonoscopy Colonoscopy in October showed adenomatous polyps; follow-up in five years is recommended. Medications: Refilled incontinence pad, liner, disp Use 1 pad 6 times a day 120 ea 11RF N39.41 - Urge incontinence underpads (Bed Underpads) Use 1 pad once a day 100 ea 3RF N39.41 - Urge incontinence
== END 2025-01-03 17:35 | disposition home or self-care (01) ==
LOC: HO.HMCH 16:29
PROVIDERS: PCP Internal Medicine; Visit Provider Internal Medicine
DX: I10 Essential (primary) hypertension (principal); E78.00 Pure hypercholesterolemia, unspecified; M81.0 Age-related osteoporosis without current pathological fracture; J45.41 Moderate persistent asthma with (acute) exacerbation

== ENCOUNTER → 2025-01-03 16:28 | Outpatient (BNVA) | payer OTHER, SELFPAY | PROVIDERS: PCP Internal Medicine; Visit Provider Internal Medicine | DX: M81.0 Age-related osteoporosis without current pathological fracture (principal); I10 Essential (primary) hypertension; E78.5 Hyperlipidemia, unspecified; R50.9 Fever, unspecified; E78.00 Pure hypercholesterolemia, unspecified; J45.41 Moderate persistent asthma with (acute) exacerbation; N39.41 Urge incontinence; Z79.899 Other long term (current) drug therapy | CPT/HCPCS: 99212 ==

== ENCOUNTER 2025-01-20 12:43 | Outpatient (AMB) | payer OTHER, SELFPAY ==
--- NOTE | 2025-01-20 12:47 | MHC.OFFVIS ---
Vital Signs 01/20/25 12:49 Height 5 ft 5 in Weight 154 lb BMI 25.6 BP 123/62 Blood Pressure Location Lt brachial Position Sitting Pulse 74 Intake Visit Reasons: constipation Intake Note: Patient in office today in follow up of constipation. CC: Patient c/o increased phlegm, congestion, and feeling like her throat is closing up. Production Expert Required: Yes Production Expert Language: Pakistani Accompanied by: Self / Same As Patient Allergies No Known Allergies (No Known Allergies*) Allergy (Verified 01/20/25 12:54) HPI HPI constipation: Details: Assessment & Plan (1) GERD (gastroesophageal reflux disease): Code(s): K21.9 - Gastro-esophageal reflux disease without esophagitis Category: Medical (2) Constipation: Code(s): K59.00 - Constipation, unspecified Category: Medical (3) Tubular adenoma of colon: Comment: 10/2024 scope= 2 TA is repeat in 5 years; TVA 05/2023 scope, repeat 1 year; 08/2020 scope repeat 3-5 years Code(s): D12.6 - Benign neoplasm of colon, unspecified Category: Medical Plan Pakistani #V Live The procedure needs to be repeated in 5 years due to its finding tubular adenoma. She says she had a severe asthma attack after the colonoscopy, she presented to the walk in clinic and had CXR that was clear, but this problem did not clear up until she had doxycycline added to prednisone. Apparently, she was hospitalized for a severe asthma attack a month or so prior to her colonoscopy. She was aslo told once in the ER that she had a hemorrhoid as she presented there for rectal itching - but these did not look bad on colonoscopy. The results were explained and the patient is agreeable to the follow-up interval as stated. The bowel pattern has returned to normal. Education was provided to tell any 1st degree relatives about their findings to be sure that they are screened by age 45. Educated that they will be put on a recall list when it is time for their repeat scope but should they move out of state or away from the hospital they will need to remember along with their primary to repeat the procedure in a timely fashion to avoid any adverse complications. Her GI regimen consists of esomeprazole daily, along with senna 2 at night. ROV 6 mos. TODAYS VISIT Pakistani # PFSH Medical History Dysphagia Liver lesion Family history of polyps in the colon Tubulovillous adenoma of colon Asthma with acute exacerbation Scoliosis Dysphagia Anxiety Depression GERD (gastroesophageal reflux disease) Hemorrhoids Neck pain Hair loss Colon cancer screening Impaired glucose tolerance High cholesterol Hypertension Asthma Surgical History Hx of colonoscopy History of total abdominal hysterectomy and bilateral salpingo-oophorectomy Family History Father No problems noted. Mother Hypertension Stroke Maternal Grandmother No problems noted. Maternal Grandfather No problems noted. Paternal Grandmother Diabetes Paternal Grandfather No problems noted. Paternal Aunt Cancer Other History of total abdominal hysterectomy and bilateral salpingo-oophorectomy Social History Household Members: None Housing: Other Housing Other:: Basement Are you a primary customer care team coach to a significant other at home: No Do you presently have visiting nurse or other home services: No Alcohol intake: current Alcohol intake frequency: does not drink Alcohol type: beer Patient Tobacco Use Status: Former Tobacco user Tobacco use type: Cigarette e-Cigarette/Vaping Use: Never Used Second Hand Smoke Exposure: No Substance Use Type: Marijuana service: No Current occupational status: disabled Cognitive needs: No Hearing needs: No Vision needs: Yes Review of Systems Const Denies fatigue, Denies fever(s), Denies night sweats, Denies poor appetite and Denies weight loss ENT Reports Normal hearing present, Denies dental pain, Reports dysphagia, Denies hearing loss, Denies mouth pain, Reports odynophagia, Denies throat swelling, Denies tongue swelling and Reports other (Dentition adequate) Card Reports no additional complaints Resp Reports no additional complaints GI Details: Denies abdominal pain, Denies melena, Denies bloating, Denies hematochezia, Denies constipation, Denies GI cramping, Reports dysphagia, Denies excessive flatus, Denies early satiety, Reports heartburn, Denies diarrhea, Denies nausea, Reports odynophagia, Denies vomiting and Denies hematemesis Skin/Breast Denies pruritus, Denies lesions, Denies rash and Denies jaundice Neuro Reports Normal hearing present and Denies Abnormal speech present Endo Denies fatigue Aller/Immun Denies throat swelling and Denies tongue swelling Physical Exam Vital Signs: Last Vital Signs Pulse 74 01/20/25 12:49 BP 123/62 01/20/25 12:49 BMI result Body Mass Index 25.6 Const General: cooperative, no acute distress, well developed and well groomed Nutritional Appearance: average body habitus and well nourished Orientation/consciousness: oriented to person, oriented to place and oriented to time Limitations: language barrier HEENT Head: Yes normocephalic and Yes atraumatic Eyes General: appearance normal, both eyes and all related structures Pupils: Equal, round and reactive pupils present Neck Neck: Yes normal visual inspection and Yes no lymphadenopathy Thyroid: Thyroid normal Resp Effort & Inspection: normal respiratory effort and able to speak in complete sentences Auscultation: clear to auscultation bilaterally Cardio Rate: regular rate Rhythm: regular rhythm Heart sounds: Normal, physiologic split S2 sound present Peripheral pulses: radial pulses present and posterior tibial pulses present GI Inspection: No distended and No Abdominal panniculus present Palpation (GI): Soft to palpation, nontender, no guarding, not rigid and No hepatosplenomegaly present Percussion: Yes normal to percussion Auscultation: normal bowel sounds Rectal Exam - Female: deferred Skin General skin exam: no rashes or lesions noted, turgor normal, skin not dry, no jaundice, No spider nevi and no striae Rashes: no rashes Nails: normal Neuro General: oriented to person, oriented to place and oriented to time Cranial nerves: Yes Equal, round and reactive pupils present and Yes Normal hearing present Speech: No Abnormal speech present Extrem General: Yes normal to inspection, No clubbing, No cyanosis and No edema Psych Appearance: grossly normal and well kempt Mental Status: mental status grossly normal Speech and movement: Normal speech and movement present Affect: normal affect Attitude: cooperative Thought process: Normal thought process present and not confabulating Thought content: Normal thought content present Insight: Fair insight present (Psych) and Limited insight present (Psych) Judgement: Fair judgement present (Psych) and Limited judgement present (Psych) Assessment & Plan Assessment & Plan (1) Osteoporosis: Comment: ALENDRONATE CONTRAINDICATED IN GERD/DYSPHAGIA !!!ESPECIALLY WITH ESOPHAGEAL STRICTURE!! She is tolerating alendronate. Vitamin-D deficient on repletion. Labs to assess secondary causes of OP were normal. Rheumatology history: Osteoporosis without fragility fracture. DXA 07/2024 lowest T-score -3.2 lumbar spine,-1.7 total hip,-1.6 left femoral neck. Alendronate started 08/2024. Code(s): M81.0 - Age-related osteoporosis without current pathological fracture Category: Medical Qualifiers: Osteoporosis type: age-related Presence of current pathological fracture: without current pathological fracture Qualified Code(s): M81.0 - Age-related osteoporosis without current pathological fracture (2) GERD (gastroesophageal reflux disease): Code(s): K21.9 - Gastro-esophageal reflux disease without esophagitis Category: Medical (3) Esophageal stricture: Code(s): K22.2 - Esophageal obstruction Category: Medical (4) Esophageal dysmotility: Code(s): K22.4 - Dyskinesia of esophagus Category: Medical Plan Pakistani # Her GI regimen consists of esomeprazole daily, along with senna 2 at night. She tells me she suddenly had a severe increase in dysphagia and is feeling ?like my throat is closing. ? As I review what may have changed since she was quite stable prior to this I find that she was just started on alendronate for osteoporosis. While this is a good medication for osteoporosis, it is expressly contraindicated in cases of patients with severe GERD, esophageal strictures and esophageal motility problems all of which the patient suffers. I am going to have her stop it for now and I am sending a note to her endocrinology prescribe her to see if we can make a plan to get her on a different medication. Also, I will have her back in a few weeks and if stopping the medication resolves her symptoms then we will know for sure that this is the culprit. If it does not make any difference then she may as well reinstate the medication and we will look further. Return office visit in 6 weeks Medications: New fluticasone propionate 50 mcg/actuation (Flonase Allergy Relief) administer into each nostril 1 spray intranasal DAILY 16 grams 6RF Refilled esomeprazole magnesium 20 mg PO DAILY 90 caps 0RF On Hold alendronate Hold Comment: contraindicated with esph stricture/gerd 70 mg PO QWEEK 12 weeks 12 tabs 2RF Patient Instructions: Demetris Bruner Coding Level of Care Code Est Pt Level 3 (07302) Diagnoses Age-related osteoporosis without current pathological fracture M81.0 Osteoporosis type: age-related Presence of current pathological fracture: without current pathological fracture GERD (gastroesophageal reflux disease) K21.9 Esophageal stricture K22.2 Esophageal dysmotility K22.4
[2025-01-20 12:49] VITALS: BP 123/62; PULSE 74; BMI 25.6
== END 2025-01-20 13:33 | disposition home or self-care (01) ==
LOC: HO.HGI 12:44
PROVIDERS: PCP Internal Medicine; Visit Provider Nurse Practitioner
DX: M81.0 Age-related osteoporosis without current pathological fracture (principal); K21.9 Gastro-esophageal reflux disease without esophagitis; K22.2 Esophageal obstruction; K22.4 Dyskinesia of esophagus
CPT/HCPCS: 99213

== ENCOUNTER → 2025-01-20 12:43 | Outpatient (BNVA) | payer OTHER, SELFPAY | PROVIDERS: PCP Internal Medicine; Visit Provider Nurse Practitioner | DX: K21.9 Gastro-esophageal reflux disease without esophagitis (principal); M81.0 Age-related osteoporosis without current pathological fracture; K22.2 Esophageal obstruction; K22.4 Dyskinesia of esophagus | CPT/HCPCS: 99212 ==

== ENCOUNTER 2025-02-20 13:16 | Outpatient (AMB) | payer OTHER, SELFPAY ==
[2025-02-20 13:34] VITALS: BP 130/66; PULSE 80; RESP 18; O2SAT 99; BMI 25.9
--- NOTE | 2025-02-20 13:34 | A.OFFPC_ITS ---
Vital Signs 02/20/25 13:34 Height 5 ft 5 in Weight 155 lb 8 oz BMI 25.9 BP 130/66 Blood Pressure Location Lt brachial Position Sitting Respiration 18 Pulse 80 Pulse Source Pulse Oximeter Temp Source Temporal Artery Scan Pulse Oximetry (%) 99 Oxygen Delivery Method Room Air Intake Visit Reasons: throat tightness X Ray Inspector Required: Yes X Ray Inspector Language: Welsh Accompanied by: Self / Same As Patient Allergies No Known Allergies (No Known Allergies*) Allergy (Verified 02/20/25 13:35) Medication List - Last Reconciled 02/20/25 by Marcello Ba MD albuterol sulfate 90 mcg/actuation 2 puffs inhalation Q4-6H PRN albuterol sulfate 2.5 mg (3 mL) inhalation Q6H PRN alendronate 70 mg PO QWEEK 12 weeks Held on 01/20/25. Instructions: contraindicated with esph stricture/gerd celecoxib (Celebrex) 200 mg PO BID 30 days enalapril maleate 20 mg PO DAILY 90 days esomeprazole magnesium 20 mg PO DAILY fluticasone propionate 50 mcg/actuation (Flonase Allergy Relief) 1 spray intranasal DAILY Grab bar As directed incontinence pad, liner, disp Use 1 pad 6 times a day nebulizers (Aeroneb Go Nebulizer) As directed [recliner As directed] simvastatin 20 mg PO BEDTIME underpads (Bed Underpads) Use 1 pad once a day [wipes As directed] Tobacco use date assessed: 02/20/25 Fall risk assessment: No Falls in past year Last assessed Fall Risk: 02/20/25 Dental Screening Dental Screen Date: 02/20/25 Did you have a dental visit in the last 12 months?: Yes Did you have a dental problem in the last 6 months where you did not have access to dental care?: No Was dental information given to patient?: Patient has dentist HPI HPI Comments History of Present Illness Details The patient is a 69-year-old female with PMH of GERD, achalasia s/p dilatation presenting with the chief complaint of a sensation of her throat closing. She has experienced this sensation for over a year, but reports it has worsened recently and feels tighter. She denies shortness of breath but does have a history of asthma with chronic congestion and phlegm. The patient has a history of esophageal dilatation for achalasia, which previously resolved her symptoms of vomiting after eating. She has no current problems with swallowing. Her GI doctor recently discontinued alendronate, due to suspicion it might be causing her throat symptoms. However, the patient states she had this sensation before starting the medication and has not seen any improvement since stopping it; she feels it is getting worse. [facility] Medical History Dysphagia Liver lesion Family history of polyps in the colon Tubulovillous adenoma of colon Asthma with acute exacerbation Scoliosis Dysphagia Anxiety Depression GERD (gastroesophageal reflux disease) Hemorrhoids Neck pain Hair loss Colon cancer screening Impaired glucose tolerance High cholesterol Hypertension Asthma Surgical History Hx of colonoscopy History of total abdominal hysterectomy and bilateral salpingo-oophorectomy Family History Father No problems noted. Mother Hypertension Stroke Maternal Grandmother No problems noted. Maternal Grandfather No problems noted. Paternal Grandmother Diabetes Paternal Grandfather No problems noted. Paternal Aunt Cancer Other History of total abdominal hysterectomy and bilateral salpingo- oophorectomy Social History Household Members: None Housing: Other Housing Other:: Basement Are you a primary landcare officer to a significant other at home: No Do you presently have visiting nurse or other home services: No Alcohol intake: current Alcohol intake frequency: does not drink Alcohol type: beer Patient Tobacco Use Status: Former Tobacco user Tobacco use type: Cigarette e-Cigarette/Vaping Use: Never Used Second Hand Smoke Exposure: No Substance Use Type: Marijuana service: No Current occupational status: disabled Cognitive needs: No Hearing needs: No Vision needs: Yes Questionnaire PHQ-9 Over the last 2 weeks, how often have you been bothered by any of the following problems? 1. Little interest or pleasure in doing things: several days 2. Feeling down, depressed, or hopeless: several days 3. Trouble falling or staying asleep, or sleeping too much: several days 4. Feeling tired or having little energy: several days 5. Poor appetite or overeating: several days 6. Feeling bad about yourself - or that you are a failure or have let yourself or your family down: several days 7. Trouble concentrating on things, such as reading the newspaper or watching television: several days 8. Moving or speaking so slowly that other people could have noticed. Or the opposite - being so fidgety or restless that you have been moving around a lot more than usual: several days 9. Thoughts that you would be better off or of hurting yourself in some way: not at all Total score: 8 Depression Screening Interpretation: Positive Depression Screening Follow-up: Existing condition and Follow-up Visit Requested Depression Screening Done: Yes 51056 - PHQ-9 Billing: Yes Source: Developed by Drs. Michel Garcia, Deysi Gerard, Torito Mireles and colleagues, with an educational malia from [employer]. Thrive Questionnaire Date Thrive assessed: 06/30/24 I am a: Patient What is your living situation today?: I choose not to answer this question Within the past 12 months, did the food you bought not last and you didn't have the money to get more?: I choose not to answer this question Within the past 12 months, did you worry whether your food would run out before you got money to buy more?: I choose not to answer this question Do you have trouble paying for medicines?: No Do you have trouble getting transportation to medical appointments?: No Do you have trouble paying your heating and electricity bill?: No Do you have trouble taking care of your child, family member or friend?: I choose not to answer this question Do you have trouble with day-to-day activities such as bathing, preparing meals, shopping, managing finances, etc.?: Yes Are you currently unemployed and looking for a job?: No Are you interested in more education?: I choose not to answer this question Please select the resources that you would like help with: Transportation Currently or been in a relationship where the following occur: No concerns reported THRIVE Score: 0 DANIEL-7 AMB Questionnaire DANIEL-7 Date DANIEL - 7 assessed: 06/30/24 Feeling nervous, anxious, or on edge: 0 = Not at all Not being able to stop or control worryin = Not at all Worrying too much about different things: 0 = Not at all Trouble relaxin = Not at all Being so restless that it is hard to sit still: 0 = Not at all Becoming easily annoyed or irritable: 0 = Not at all Feeling afraid as if something awful might happen: 0 = Not at all Total DANIEL-7 score (0-4 normal; 5-9 mild; 10-14 moderate; 15-21 severe): 0 Source: Developed by Drs. Michel Garcia, Deysi Gerard, Torito Mireles and colleagues, with an educational malia from [employer]. DANIEL-7 Assessment Billing DANIEL-7 Assessment Tool: DANIEL-7 Assessment 19139 Review of Systems Const Details: As per HPI. Physical exam (Primary Care) Vital Signs: Last Vital Signs Pulse 80 02/20/25 13:34 Resp 18 02/20/25 13:34 BP 130/66 02/20/25 13:34 Pulse Ox 99 02/20/25 13:34 Oxygen Delivery Method Room Air 02/20/25 13:34 BMI result Body Mass Index 25.9 Tobacco/Smoking Status: Tobacco use Status Tobacco use date assessed 02/20/25 02/20/25 13:42 Patient Tobacco Use Status Former Tobacco user 02/20/25 13:42 Tobacco use type Cigarette 02/20/25 13:42 e-Cigarette/Vaping Use Never Used 02/20/25 13:42 PHQ-9: PHQ-9 Score PHQ-9: Total score 8 02/20/25 14:32 Depression Screening Interpretation: Positive Depression Screening Follow-up: Existing condition and Follow-up Visit Requested Thrive Assessment: Date of Thrive Assessment Date Thrive assessed 06/30/24 02/20/25 13:42 Currently or been in a relationship where the following occur: No concerns reported Const Other: Pertinent findings are in BOLD GENERAL APPEARANCE NAD, activity normal for age, well developed/ well nourished, no cyanosis, pallor, or diaphoresis. EYES lids/conjunctiva normal. EARS/NOSE/THROAT Mucous membranes moist, nares normal, lips/teeth normal uvula midline without oral pharyngeal erythema, exudate or swelling TMs normal bilaterally. No lymphangitis/lymphedema. HEAD/NECK normocephalic atraumatic, no facial trauma, neck is supple. RESPIRATORY respiratory effort normal, speaks in full sentences, no tripod position, no accessory muscle use. Lungs clear to auscultation without rhonchi, wheezes, rales CARDIAC Regular rate and rhythm, no edema. ABDOMINAL Soft, ND/NT. No evidence of fluid wave. No pulsatile masses on exam, rebound tenderness, Little sign or pain over Mcburney's point. MUSCLES/EXTREMITIES No abnormal range of motion, no swelling. SKIN Warm, pink and dry. No rashes, dermatoses, petechiae or lesions. NEUROLOGICAL Speech is clear and appropriate. Normal level of consciousness. Gait and coordination are normal. 5/5 strength in all extremities. PSYCH Normal mood and affect. Judgement/competence is appropriate Coding Level of Care Code Est Pt Level 3 (54570) Diagnoses Throat tightness R09.89 Additional Codes DANIEL-7 Assessment Billing - DANIEL-7 Assessment Tool: DANIEL-7 Assessment 23889 ([id number]) PHQ-9 - 18790 - PHQ-9 Billing: Yes ([id number]) Time Spent (min) 20 Assessment & Plan Assessment & Plan (1) Throat tightness: Code(s): R09.89 - Other specified symptoms and signs involving the circulatory and respiratory systems Category: Medical Plan: - The etiology of the patient's throat tightness is currently unclear, with potential causes related to the esophagus or trachea. - The symptom has been chronic for over a year and is worsening, which is concerning despite not appearing to be life-threatening. - The patient will continue to be off alendronate to assess for any changes in her symptoms. - The patient is advised to follow up with her GI specialist on March 08. - The GI specialist may potentially need to perform another EGD for further evaluation. - Further management will be based on the GI specialist's assessment. - ENT referral was placed in case the GI assessment is inconclusive. Plan I discussed with the patient that the cause of her throat tightness, which has been present for over a year and is worsening, is unclear. I explained that discontinuing alendronate has not improved her symptoms. I recommended she follow up with her GI specialist, who may consider another EGD for further evaluation. I reassured her that I do not believe the condition is life- threatening and that we will await the GI evaluation before determining the next steps. Regarding her request for a bone medication refill, I advised her that it should be managed by the original prescriber. Orders: Referrals Ear/Nose/Throat Referral R09.89 - Other specified symptoms and signs involving the circulatory and respiratory systems
== END 2025-02-20 14:45 | disposition home or self-care (01) ==
LOC: HO.HMCH 13:17
PROVIDERS: PCP Internal Medicine; Visit Provider Internal Medicine
DX: R09.89 Other specified symptoms and signs involving the circulatory and respiratory systems (principal)

== ENCOUNTER → 2025-02-20 13:16 | Outpatient (BNVA) | payer OTHER, SELFPAY | PROVIDERS: PCP Internal Medicine; Visit Provider Internal Medicine | DX: K21.9 Gastro-esophageal reflux disease without esophagitis (principal); J45.909 Unspecified asthma, uncomplicated; R09.89 Other specified symptoms and signs involving the circulatory and respiratory systems | CPT/HCPCS: 96127; 99212 ==

== ENCOUNTER 2025-03-08 15:31 | Outpatient (AMB) | payer OTHER, SELFPAY ==
--- NOTE | 2025-03-08 15:53 | A.OFFVIS_ITS ---
Vital Signs 03/08/25 16:10 Height 5 ft 5 in Weight 154 lb 5.177 oz BMI 25.7 Intake Visit Reasons: Follow up 6 weeks Intake Note: Patient is seen in office for 6 weeks follow up visit, following on medication change. Pt c/o:here for meds changes Washer Engineer Helper Required: Yes Washer Engineer Helper Language: Burner Operator Services: Washer Engineer Helper Present Washer Engineer Helper Name: Nannette MORA Information Interpreted: non-clinical & clinical Accompanied by: Self / Same As Patient Allergies No Known Allergies (No Known Allergies*) Allergy (Verified 03/08/25 16:12) HPI HPI Follow up 6 weeks: Details: Assessment & Plan (1) Osteoporosis: Comment: ALENDRONATE CONTRAINDICATED IN GERD/DYSPHAGIA !!!ESPECIALLY WITH ESOPHAGEAL STRICTURE!! She is tolerating alendronate. Vitamin-D deficient on repletion. Labs to assess secondary causes of OP were normal. Rheumatology history: Osteoporosis without fragility fracture. DXA 07/2024 lowest T-score -3.2 lumbar spine,-1.7 total hip,-1.6 left femoral neck. Alendronate started 08/2024. Code(s): M81.0 - Age-related osteoporosis without current pathological fracture Category: Medical Qualifiers: Osteoporosis type: age-related Presence of current pathological fracture: without current pathological fracture Qualified Code(s): M81.0 - Age- related osteoporosis without current pathological fracture (2) GERD (gastroesophageal reflux disease): Code(s): K21.9 - Gastro-esophageal reflux disease without esophagitis Category: Medical (3) Esophageal stricture: Code(s): K22.2 - Esophageal obstruction Category: Medical (4) Esophageal dysmotility: Code(s): K22.4 - Dyskinesia of esophagus Category: Medical Plan [place] # Her GI regimen consists of esomeprazole daily, along with senna 2 at night. She tells me she suddenly had a severe increase in dysphagia and is feeling ?like my throat is closing. ? As I review what may have changed since she was quite stable prior to this I find that she was just started on alendronate for osteoporosis. While this is a good medication for osteoporosis, it is expressly contraindicated in cases of patients with severe GERD, esophageal strictures and esophageal motility problems all of which the patient suffers. I am going to have her stop it for now and I am sending a note to her endocrinology prescribe her to see if we can make a plan to get her on a different medication. Also, I will have her back in a few weeks and if stopping the medication resolves her symptoms then we will know for sure that this is the culprit. If it does not make any difference then she may as well reinstate the medication and we will look further. Return office visit in 6 weeks Medications: New fluticasone propionate 50 mcg/actuation (Flonase Allergy Relief) administer into each nostril 1 spray intranasal DAILY 16 grams 6RF Refilled esomeprazole magnesium 20 mg PO DAILY 90 caps 0RF On Hold alendronate Hold Comment: contraindicated with esph stricture/gerd 70 mg PO QWEEK 12 weeks 12 tabs 2RF Patient Instructions: TODAYS VISIT [place] # PFSH Medical History Dysphagia Liver lesion Family history of polyps in the colon Tubulovillous adenoma of colon Asthma with acute exacerbation Scoliosis Dysphagia Anxiety Depression GERD (gastroesophageal reflux disease) Hemorrhoids Neck pain Hair loss Colon cancer screening Impaired glucose tolerance High cholesterol Hypertension Asthma Surgical History Hx of colonoscopy History of total abdominal hysterectomy and bilateral salpingo-oophorectomy Family History Father No problems noted. Mother Hypertension Stroke Maternal Grandmother No problems noted. Maternal Grandfather No problems noted. Paternal Grandmother Diabetes Paternal Grandfather No problems noted. Paternal Aunt Cancer Other History of total abdominal hysterectomy and bilateral salpingo- oophorectomy Social History Household Members: None Housing: Other Housing Other:: Basement Are you a primary rehab care assistant to a significant other at home: No Do you presently have visiting nurse or other home services: No Alcohol intake: current Alcohol intake frequency: does not drink Alcohol type: beer Patient Tobacco Use Status: Former Tobacco user Tobacco use type: Cigarette e-Cigarette/Vaping Use: Never Used Second Hand Smoke Exposure: No Substance Use Type: Marijuana service: No Current occupational status: disabled Cognitive needs: No Hearing needs: No Vision needs: Yes Physical Exam Vital Signs: BMI result Body Mass Index 25.7 Assessment & Plan Assessment & Plan (1) GERD (gastroesophageal reflux disease): Code(s): K21.9 - Gastro-esophageal reflux disease without esophagitis Category: Medical (2) Esophageal stricture: Code(s): K22.2 - Esophageal obstruction Category: Medical (3) Throat tightness: Code(s): R09.89 - Other specified symptoms and signs involving the circulatory and respiratory systems Category: Medical (4) Age related osteoporosis: Code(s): M81.0 - Age-related osteoporosis without current pathological fracture Category: Medical Plan [place] # Her GI regimen consists of esomeprazole daily, along with senna 2 at night. No improvement in her feeling of throat closing, different from past dysphagia that responded to dilation in 2023, since stopping alendronate did not help will restart, she has upcomding ENT appt will wait to see what they say. ROJoseph May Coding Level of Care Code Est Pt Level 3 (99900) Diagnoses GERD (gastroesophageal reflux disease) K21.9 Esophageal stricture K22.2 Throat tightness R09.89 Age related osteoporosis M81.0
[2025-03-08 16:10] VITALS: BMI 25.7
== END 2025-03-08 16:20 | disposition home or self-care (01) ==
LOC: HO.HGI 15:32
PROVIDERS: PCP Internal Medicine; Visit Provider Nurse Practitioner
DX: K21.9 Gastro-esophageal reflux disease without esophagitis (principal); K22.2 Esophageal obstruction; R09.89 Other specified symptoms and signs involving the circulatory and respiratory systems; M81.0 Age-related osteoporosis without current pathological fracture
CPT/HCPCS: 99213

== ENCOUNTER → 2025-03-08 15:31 | Outpatient (BNVA) | payer OTHER, SELFPAY | PROVIDERS: PCP Internal Medicine; Visit Provider Nurse Practitioner | DX: K21.9 Gastro-esophageal reflux disease without esophagitis (principal); K22.2 Esophageal obstruction; R09.89 Other specified symptoms and signs involving the circulatory and respiratory systems; M81.0 Age-related osteoporosis without current pathological fracture | CPT/HCPCS: 99212 ==

== ENCOUNTER 2025-03-23 12:20 | Emergency (ER) | payer OTHER, SELFPAY ==
--- NOTE | ~2025-03-23 | CT_ITS ---
CLINICAL HISTORY: llq pain s p hystorectomy many yrs ago Exam: Contrast-enhanced CT abdomen and pelvis with multiplanar reformats. Comparison: Abdomen ultrasound 09/06/2024. Findings: CT abdomen: Lung bases are clear. Small hiatal hernia. Liver is free of focal lesions and ductal dilatation. Gallbladder appears unremarkable. Spleen is unremarkable. Pancreas and adrenal glands appear unremarkable. Kidneys appear unremarkable. No free intraperitoneal fluid or retroperitoneal masses or adenopathy. Abdominal aorta is normal caliber. Bowel loops reveal an inflamed diverticulum involving distal descending colon (for example, 4; 509), with segmental colonic wall thickening and pericolonic stranding, compatible with uncomplicated diverticulitis. No perforation or abscess. No other abnormal bowel wall thickening or distention. The appendix appears unremarkable. CT pelvis: Uterus is surgically absent. Urinary bladder is free of filling defects. No pelvic masses, fluid or adenopathy. Osseous structures reveal no destructive osseous lesions. Impression: 1. Uncomplicated diverticulitis involving distal descending colon. This document has been electronically signed by: Enoc Irizarry MD on 03/23/2025 19:07:02
[2025-03-23 12:57] VITALS: BP 129/63; PULSE 79; RESP 16; TEMP 36.8; O2SAT 98; BMI 25.7
--- NOTE | 2025-03-23 12:58 | ED_ITS ---
HPI - Abdominal Pain General Chief Complaint: Abdominal Pain Stated Complaint: L side pain Time Seen by Provider: 03/23/25 17:32 Related Data Previous Rx's ?Medication ?Instructions ?Recorded Grab bar #1 ea 11/26/21 recliner #1 ea 03/04/24 albuterol sulfate 90 mcg/actuation 2 puff inhalation Q 4-6H PRN 08/21/24 aerosol inhaler shortness of breath or wheez ing #6.7 grams celecoxib 200 mg capsule (Celebrex) 200 mg PO BID 30 d ays #60 caps 08/25/24 simvastatin 20 mg tablet 20 mg PO BEDTIME #90 tabs albuterol sulfate 2.5 mg/3 mL 2.5 mg (3 mL) inhalation Q6H PRN 10/17/24 (0.083 %) solution for nebulization shortness of breat h or wheezing #90 mL nebulizers (Aeroneb Go Nebulizer) #1 ea 10/17/24 alendronate 70 mg tablet 70 mg PO QWEEK 12 weeks #12 tabs 12/23/24 Held on 01/20/25. Instructions: contraindicated with [facility] stricture/gerd incontinence pad, liner, disp #120 ea 01/12/25 esomeprazole magnesium 20 mg 20 mg PO DAILY #90 caps 1 capsule,delayed release fluticasone propionate 50 1 spray intranasal DAILY #16 grams 01/20/25 mcg/actuation nasal spray,suspension (Flonase Allergy Relief) enalapril maleate 20 mg tablet 20 mg PO DAILY 90 days #90 tabs 01/22/25 underpads (Bed Underpads) #100 ea 03/17/25 wet wipes with no smell #200 ea 03/20/25 amoxicillin 875 mg-potassium 1 tab PO BID 7 days #14 t abs 03/23/25 clavulanate 125 mg tablet ondansetron 4 mg disintegrating 4 mg PO TID PRN nausea and 03/23/25 tablet vomiting 5 days #10 tabs Allergies Allergy/AdvReac Type Severity Reaction Status Date / Time No Known Allergies (No Known Allergy Verified 03/23/25 13:01 Allergies*) FOR[facility]LY [facility] Past Medical History Medical History Dysphagia Liver lesion Family history of polyps in the colon Tubulovillous adenoma of colon Asthma with acute exacerbation Scoliosis Dysphagia Anxiety Depression GERD (gastroesophageal reflux disease) Hemorrhoids Neck pain Hair loss Colon cancer screening Impaired glucose tolerance High cholesterol Hypertension Asthma Surgical History Hx of colonoscopy History of total abdominal hysterectomy and bilateral salpingo-oophorectomy Family History Family History Father No problems noted. Mother Hypertension Stroke Maternal Grandmother No problems noted. Maternal Grandfather No problems noted. Paternal Grandmother Diabetes Paternal Grandfather No problems noted. Paternal Aunt Cancer Other History of total abdominal hysterectomy and bilateral salpingo- oophorectomy Social History Social History Household Members: None Housing: Other Housing Other:: Basement Are you a primary medical care manager to a significant other at home: No Do you presently have visiting nurse or other home services: No Alcohol intake: current Alcohol intake frequency: does not drink Alcohol type: beer Patient Tobacco Use Status: Former Tobacco user Tobacco use type: Cigarette Smoked in Last 30 Days: No e-Cigarette/Vaping Use: Never Used Second Hand Smoke Exposure: No Use of substances other than those prescribed or required for medical reasons: No Substance Use Type: Marijuana Advance Directives: No Advance Directives Information Provided: Yes Do you have a plan to hurt others: No Plan service: No Current occupational status: disabled Cognitive needs: No Hearing needs: No Vision needs: Yes Physical Exam ED Vital Signs: Vital Signs - 24 hr 03/23/25 12:57 03/23/25 17:56 Temperature 98.2 F Pulse Rate 79 80 Respiratory Rate 16 16 Blood Pressure 129/63 131/89 Pulse Oximetry 98 99 Oxygen Delivery Method Room Air Room Air BMI result Body Mass Index 25.7 Course Course Course Narrative: This is an RME: Additional HPI, ROS, PE not included below will be deferred to primary provider. RME assessment and note performed by: Maday Olsen PA-C This is a 81-[id number]-qkv-female, with a hx of HTN, HLD, chronic back pain, here with LLQ x 3 days. No n/v/d/ urinary symptoms. VSS. Plan: Labs, further ER eval needed Medical Decision Making Medical Decision Making [facility] Narrative: Patient is has left lower abdominal pain white count is normal. CT scan of the abdomen pelvis positive for diverticulitis. No abscess no perforation. Will start patient on Rocephin and Flagyl in the emergency department. Augmentin on an outpatient basis follow-up with GI and primary physician on an outpatient basis patient has no evidence for abscess no evidence for perforation patient pain is controlled white count is normal will discharge home Differential Diagnosis Differential Diagnoses: The differential diagnosis associated with the presentation includes pancreatitis abdominal pathology, diverticulitis, kidney stone Admission/Observation Consideration of admission/observation: Escalation of care including admission/observation considered Lab Data [facility] Lab Attestation statement: I reviewed the patient's lab results. 03/23/25 14:46 03/23/25 14:46 Labs: Lab Results 03/23/25 03/23/25 Range/Units 14:46 14:55 WBC 9.7 (4.8-10.8) X10*3/uL RBC 5.21 (4.20-5.50) X10*6/uL Hgb 13.9 (12.0-16.0) g/dl Hct 44.0 (37.0-47.0) % MCV 84.5 (80.0-98.0) fL MCH 26.7 L (27.0-33.0) pg MCHC 31.6 (31.0-35.0) g/dl RDW 14.5 (11.0-16.0) % Plt Count 250 (160-400) X10*3/uL MPV 10.9 (9.4-12.3) fL Immature Gran % (Auto) 0.2 (0.0-0.4) % Neut % (Auto) 67.8 (45-73) % Lymph % (Auto) 22.5 (20-40) % [place] % (Auto) 8.3 (2-11) % Eos % (Auto) 0.7 (0-4) % Baso % (Auto) 0.5 (0-2) % Lymph # (Auto) 2.2 (1.2-4.9) X10*3/uL [place] # (Auto) 0.8 (0.1-1.2) X10*3/uL Eos # (Auto) 0.1 (0.0-0.4) X10*3/uL Baso # (Auto) 0.1 (0.0-0.2) X10*3/uL Abs Immat Gran (auto) 0.02 (0.00-0.03) X10*3/uL Absolute Neuts (auto) 6.6 (2.0-8.3) x10*3/uL Absolute Nucleated RBC 0.000 (0.0-0.012) X10*3/uL Nucleated RBC % (auto) 0.0 (0.0-0.2) /100WBC Sodium 141 (135-145) mmol/L Potassium 4.0 (3.3-5.1) mmol/L Chloride 105 (96-108) mmol/L Carbon Dioxide 30 H (22-29) mmol/L Anion Gap 10 L (12-20) BUN 17 H (9-16) mg/dL Creatinine 0.75 (0.5-1.4) mg/dL Estim Creat Clear Calc 68.5 Estimated GFR > 60 Random Glucose 96 (60-115) mg/dL Calcium 9.5 (8.4-10.2) mg/dL Magnesium 2.2 (1.6-2.6) mg/dL Total Bilirubin 0.4 (0.0-1.0) mg/dL Direct Bilirubin 0.1 (0.0-0.5) mg/dL AST 22 (5-31) U/L ALT 22 (0-31) U/L Alkaline Phosphatase 75 (39-117) U/L Total Protein 7.1 (6.5-8.0) g/dL Albumin 4.4 (3.5-5.0) g/dL Lipase 29 (8-78) U/L Urine Color Yellow Urine Appearance Cloudy Urine pH 7.0 (5.0-9.0) Ur Specific [place] 1.020 (1.005-1.025) Urine Protein Negative (Neg-Trace) mg/dL Urine Glucose (UA) Negative (Negative) mg/dL Urine Ketones Negative (Negative) mg/dL Urine Blood Negative (Negative) Urine Nitrite Negative (Negative) Ur Leukocyte Esterase Negative (Negative) Independent Interpretation I performed an independent interpretation of an: CT Scan ( no obstruction noted) Radiology Impression Discussion of test interpretation with radiology: I have reviewed the radiologist's reading. Chronic Conditions status post hysterectomy Social Determinants Patient?s care significantly limited by Social Determinants of Health including: Problems related to primary support group Medications Administered Discontinued Medications Generic Name Dose Route Start Last Admin Trade Name Freq PRN Reason Stop Dose Admin Hydromorphone HCl 0.5 mg 03/23/25 17:40 03/23/25 17:52 Hydromorphone Hcl 0.5 Mg/0.5 Ml Syringe IVPUSH 03/23/25 17:41 0.5 mg ONCE ONE Administration Protocol Sodium Chloride 1,000 mls @ 999 mls/hr 03/23/25 17:45 03/23/25 18:45 Ns IV 03/23/25 18:45 Infused .Q1H1M TRINI Infusion Iohexol 100 ml 03/23/25 18:33 03/23/25 18:33 Iohexol 350 Mg/Ml 100 Ml Infus..Btl IV 03/23/25 18:34 85 ml ONCE ONE Administration Iohexol 100 ml 03/23/25 18:54 03/23/25 18:55 Iohexol 350 Mg/Ml 100 Ml Infus..Btl IV 03/23/25 18:55 85 ml ONCE ONE Administration Ondansetron HCl 4 mg 03/23/25 17:40 03/23/25 17:52 Ondansetron Hcl 4 Mg/2 Ml Vial IVPUSH 03/23/25 17:41 4 mg ONCE ONE Administration Discharge Plan Discharge Clinical Impression: Diverticulitis Patient Disposition: Home, Self-Care Instructions: Diverticulitis (DC) Prescriptions: New amoxicillin-pot clavulanate 875-125 mg tablet 1 tab PO BID 7 Days Qty: 14 0RF ondansetron 4 mg tablet,disintegrating 4 mg PO TID PRN (Reason: nausea and vomiting) 5 Days Qty: 10 0RF No Action (DME) recliner See Rx Instructions .Route .MEDSUPPLY Qty: 1 0RF Rx Instructions: As directed simvastatin 20 mg tablet 20 mg PO BEDTIME Qty: 90 1RF albuterol sulfate 2.5 mg /3 mL (0.083 %) solution for nebulization 2.5 mg inhalation Q6H PRN (Reason: shortness of breath or wheezing) Qty: 90 0RF (DME) nebulizers [Aeroneb Go Nebulizer] Misc See Rx Instructions .Route Qty: 1 0RF Rx Instructions: As directed alendronate 70 mg tablet 70 mg PO QWEEK 84 Days Qty: 12 2RF Rx Instructions: Take once a week on an empty stomach in the morning. Drinks lots of water. Sit upright for 30 minutes. [place] label. (DME) incontinence pad, liner, disp Pad See Rx Instructions .Route Qty: 120 11RF Rx Instructions: Use 1 pad 6 times a day enalapril maleate 20 mg tablet 20 mg PO DAILY 90 Days Qty: 90 0RF (DME) underpads [Bed Underpads] Pad See Rx Instructions .Route Qty: 100 3RF Rx Instructions: Use 1 pad once a day (DME) wet wipes with no smell See Rx Instructions .Route .MEDSUPPLY Qty: 200 11RF Rx Instructions: As directed albuterol sulfate 90 mcg/actuation HFA aerosol inhaler 2 puff inhalation Q4-6H PRN (Reason: shortness of breath or wheezing) Qty: 6.7 0RF (DME) Grab bar Misc See Rx Instructions .Route Qty: 1 0RF Rx Instructions: As directed celecoxib [Celebrex] 200 mg capsule 200 mg PO BID 30 Days Qty: 60 3RF esomeprazole magnesium 20 mg capsule,delayed release(DR/EC) 20 mg PO DAILY Qty: 90 0RF fluticasone propionate [Flonase Allergy Relief] 50 mcg/actuation spray,suspension 1 spray intranasal DAILY Qty: 16 6RF Rx Instructions: administer into each nostril Referrals: Renetta Sutherland MD [Primary Care Provider, Internal Medicine] - 03/27/25 Print Language: [place]
[2025-03-23 15:04] LABS: MANUAL DIFF FLAG NO
[2025-03-23 15:05] LABS: Hematocrit 44.0 % (37.0-47.0); Hemoglobin 13.9 g/dl (12.0-16.0); Imm Gran Abs Auto 0.02 X10*3/uL (0.00-0.03); Imm Gran Pct Auto 0.2 % (0.0-0.4); Lymphocytes Absolute Auto 2.2 X10*3/uL (1.2-4.9); Mean Corpuscular HGB Conc 31.6 g/dl (31.0-35.0); Mean Corpuscular Hemoglobin 26.7 pg (27.0-33.0); Mean Corpuscular Volume 84.5 fL (80.0-98.0); NRBC Abs Auto 0.000 X10*3/uL (0.0-0.012); NRBC Pct Auto 0.0 /100WBC (0.0-0.2); Platelet Count 250 X10*3/uL (160-400); Red Blood Count 5.21 X10*6/uL (4.20-5.50); White Blood Count 9.7 X10*3/uL (4.8-10.8)
[2025-03-23 15:09] LABS: Appearance Urine Cloudy; Glucose Urine UA Negative (Negative); PH 7.0 (5.0-9.0); Specific Gravity - Urine 1.020 (1.005-1.025)
[2025-03-23 15:38] LABS: Alanine Aminotransferase 22 U/L (0-31); Albumin Level 4.4 g/dL (3.5-5.0); Alkaline Phosphatase 75 U/L (39-117); Anion Gap 10 (12-20); Aspartate Amino Transferase 22 U/L (5-31); Blood Urea Nitrogen 17 mg/dL (9-16); Calcium 9.5 mg/dL (8.4-10.2); Carbon Dioxide 30 mmol/L (22-29); Chloride 105 mmol/L (96-108); Creatinine Clr Calc Pharmacy 68.5; Estimated Glomerular Filt Rate > 60; Lipase 29 U/L (8-78); Magnesium 2.2 mg/dL (1.6-2.6); Potassium 4.0 mmol/L (3.3-5.1); Sodium 141 mmol/L (135-145); Total Protein 7.1 g/dL (6.5-8.0)
--- NOTE | 2025-03-23 17:42 | ED_ITS ---
HPI - Abdominal Pain General Chief Complaint: Abdominal Pain Stated Complaint: L side pain Time Seen by Provider: 03/23/25 17:32 History of Present Illness HPI narrative: Patient is a 69-year-old female with a history of hysterectomy done many years ago. Presents today with having left-sided abdominal pain for the last 3 days. There is no nausea no vomiting no diarrhea. Patient is from home. No fever no chills. No pain on urination. No frequency. No history of colonoscopies done in the past. No history of diverticulitis in the past. No history of obstructions in the past. Patient from home. No travel history Related Data Previous Rx's ?Medication ?Instructions ?Recorded Grab bar #1 ea 11/26/21 recliner #1 ea 03/04/24 albuterol sulfate 90 mcg/actuation 2 puff inhalation Q 4-6H PRN 08/21/24 aerosol inhaler shortness of breath or wheez ing #6.7 grams celecoxib 200 mg capsule (Celebrex) 200 mg PO BID 30 d ays #60 caps 08/25/24 simvastatin 20 mg tablet 20 mg PO BEDTIME #90 tabs albuterol sulfate 2.5 mg/3 mL 2.5 mg (3 mL) inhalation Q6H PRN 10/17/24 (0.083 %) solution for nebulization shortness of breat h or wheezing #90 mL nebulizers (Aeroneb Go Nebulizer) #1 ea 10/17/24 alendronate 70 mg tablet 70 mg PO QWEEK 12 weeks #12 tabs 12/23/24 Held on 01/20/25. Instructions: contraindicated with esph stricture/gerd incontinence pad, liner, disp #120 ea 01/12/25 esomeprazole magnesium 20 mg 20 mg PO DAILY #90 caps 1 capsule,delayed release fluticasone propionate 50 1 spray intranasal DAILY #16 grams 01/20/25 mcg/actuation nasal spray,suspension (Flonase Allergy Relief) enalapril maleate 20 mg tablet 20 mg PO DAILY 90 days #90 tabs 01/22/25 underpads (Bed Underpads) #100 ea 03/17/25 wet wipes with no smell #200 ea 03/20/25 amoxicillin 875 mg-potassium 1 tab PO BID 7 days #14 t abs 03/23/25 clavulanate 125 mg tablet ondansetron 4 mg disintegrating 4 mg PO TID PRN nausea and 03/23/25 tablet vomiting 5 days #10 tabs Allergies Allergy/AdvReac Type Severity Reaction Status Date / Time No Known Allergies (No Known Allergy Verified 03/23/25 13:01 Allergies*) Review of Systems Review of Systems positive abdominal pain in the left lower quadrant PMFSH Past Medical History Attestation statement: The following information was validated with the patient. Medical History Dysphagia Liver lesion Family history of polyps in the colon Tubulovillous adenoma of colon Asthma with acute exacerbation Scoliosis Dysphagia Anxiety Depression GERD (gastroesophageal reflux disease) Hemorrhoids Neck pain Hair loss Colon cancer screening Impaired glucose tolerance High cholesterol Hypertension Asthma Surgical History Hx of colonoscopy History of total abdominal hysterectomy and bilateral salpingo-oophorectomy Family History Family History Father No problems noted. Mother Hypertension Stroke Maternal Grandmother No problems noted. Maternal Grandfather No problems noted. Paternal Grandmother Diabetes Paternal Grandfather No problems noted. Paternal Aunt Cancer Other History of total abdominal hysterectomy and bilateral salpingo- oophorectomy Social History Social History Household Members: None Housing: Other Housing Other:: Basement Are you a primary primary care md to a significant other at home: No Do you presently have visiting nurse or other home services: No Alcohol intake: current Alcohol intake frequency: does not drink Alcohol type: beer Patient Tobacco Use Status: Former Tobacco user Tobacco use type: Cigarette e-Cigarette/Vaping Use: Never Used Second Hand Smoke Exposure: No Substance Use Type: Marijuana service: No Current occupational status: disabled Cognitive needs: No Hearing needs: No Vision needs: Yes Physical Exam ED Exam Exam: Appearance: Alert. Oriented X3. No acute distress. Eyes: Pupils equal, round and reactive to light. ENT: Pharynx normal. Neck: Normal inspection. Neck supple. No lymph nodes noted. No crepitus CVS: Normal heart rate and rhythm. Pulses normal. Normal S1 and S2 Respiratory: No respiratory distress. Breath sounds normal. No Wheezing. No rales Abdomen: Soft and nontender. No rigidity. No distention. good BS x4 Skin: Skin warm and dry. Normal skin color. Normal skin turgor. Extremities: No lower extremity edema. Neurovascular intact to all extremities. No Lacerations. No Rash Neuro: Oriented X 3. No motor deficit. No sensory deficit. Moving all extermities. No slurred speech Vital Signs: Vital Signs - 24 hr 03/23/25 12:57 Temperature 98.2 F Pulse Rate 79 Respiratory Rate 16 Blood Pressure 129/63 Pulse Oximetry 98 Oxygen Delivery Method Room Air BMI result Body Mass Index 25.7 Medical Decision Making Medical Decision Making [facility] Narrative: patient presents today with having abdominal pain in the left lower quadrant. CT scan positive for diverticulitis there is no abscess no perforation. Pain is controlled. Antibiotics given patient to be discharged home. Differential Diagnosis Differential Diagnoses: The differential diagnosis associated with the presentation includes Diverticulitis, obstruction Admission/Observation Consideration of admission/observation: Escalation of care including admission/observation considered Lab Data [facility] Lab Attestation statement: I reviewed the patient's lab results. 03/23/25 14:46 03/23/25 14:46 Labs: Lab Results 03/23/25 03/23/25 Range/Units 14:46 14:55 WBC 9.7 (4.8-10.8) X10*3/uL RBC 5.21 (4.20-5.50) X10*6/uL Hgb 13.9 (12.0-16.0) g/dl Hct 44.0 (37.0-47.0) % MCV 84.5 (80.0-98.0) fL MCH 26.7 L (27.0-33.0) pg MCHC 31.6 (31.0-35.0) g/dl RDW 14.5 (11.0-16.0) % Plt Count 250 (160-400) X10*3/uL MPV 10.9 (9.4-12.3) fL Immature Gran % (Auto) 0.2 (0.0-0.4) % Neut % (Auto) 67.8 (45-73) % Lymph % (Auto) 22.5 (20-40) % Giles % (Auto) 8.3 (2-11) % Eos % (Auto) 0.7 (0-4) % Baso % (Auto) 0.5 (0-2) % Lymph # (Auto) 2.2 (1.2-4.9) X10*3/uL Giles # (Auto) 0.8 (0.1-1.2) X10*3/uL Eos # (Auto) 0.1 (0.0-0.4) X10*3/uL Baso # (Auto) 0.1 (0.0-0.2) X10*3/uL Abs Immat Gran (auto) 0.02 (0.00-0.03) X10*3/uL Absolute Neuts (auto) 6.6 (2.0-8.3) x10*3/uL Absolute Nucleated RBC 0.000 (0.0-0.012) X10*3/uL Nucleated RBC % (auto) 0.0 (0.0-0.2) /100WBC Sodium 141 (135-145) mmol/L Potassium 4.0 (3.3-5.1) mmol/L Chloride 105 (96-108) mmol/L Carbon Dioxide 30 H (22-29) mmol/L Anion Gap 10 L (12-20) BUN 17 H (9-16) mg/dL Creatinine 0.75 (0.5-1.4) mg/dL Estim Creat Clear Calc 68.5 Estimated GFR > 60 Random Glucose 96 (60-115) mg/dL Calcium 9.5 (8.4-10.2) mg/dL Magnesium 2.2 (1.6-2.6) mg/dL Total Bilirubin 0.4 (0.0-1.0) mg/dL Direct Bilirubin 0.1 (0.0-0.5) mg/dL AST 22 (5-31) U/L ALT 22 (0-31) U/L Alkaline Phosphatase 75 (39-117) U/L Total Protein 7.1 (6.5-8.0) g/dL Albumin 4.4 (3.5-5.0) g/dL Lipase 29 (8-78) U/L Urine Color Yellow Urine Appearance Cloudy Urine pH 7.0 (5.0-9.0) Ur Specific [place] 1.020 (1.005-1.025) Urine Protein Negative (Neg-Trace) mg/dL Urine Glucose (UA) Negative (Negative) mg/dL Urine Ketones Negative (Negative) mg/dL Urine Blood Negative (Negative) Urine Nitrite Negative (Negative) Ur Leukocyte Esterase Negative (Negative) Independent Interpretation I performed an independent interpretation of an: CT Scan ( no obstruction) Radiology Impression Discussion of test interpretation with radiology: I have reviewed the radiologist's reading. External Record Review External record reviewed: Inpatient record Social Determinants Patient?s care significantly limited by Social Determinants of Health including: Problems related to primary support group Medications Administered Discontinued Medications Generic Name Dose Route Start Last Admin Trade Name Freq PRN Reason Stop Dose Admin Hydromorphone HCl 0.5 mg 03/23/25 17:40 03/23/25 17:52 Hydromorphone Hcl 0.5 Mg/0.5 Ml Syringe IVPUSH 03/23/25 17:41 0.5 mg ONCE ONE Administration Protocol Sodium Chloride 1,000 mls @ 999 mls/hr 03/23/25 17:45 03/23/25 18:45 Ns IV 03/23/25 18:45 Infused .Q1H1M TRINI Infusion Ceftriaxone Sodium 1 gm/ 50 mls @ 100 mls/hr 03/23/25 19:11 03/23/25 20:32 Sodium Chloride IV 03/23/25 19:40 Infused ONCE ONE Infusion Metronidazole 500 mg in 100 mls @ 100 mls/hr 03/23/25 19:11 03/23/25 20:56 Flagyl IV 03/23/25 20:10 Infused ONCE ONE Infusion Iohexol 100 ml 03/23/25 18:33 03/23/25 18:33 Iohexol 350 Mg/Ml 100 Ml Infus..Btl IV 03/23/25 18:34 85 ml ONCE ONE Administration Iohexol 100 ml 03/23/25 18:54 03/23/25 18:55 Iohexol 350 Mg/Ml 100 Ml Infus..Btl IV 03/23/25 18:55 85 ml ONCE ONE Administration Ondansetron HCl 4 mg 03/23/25 17:40 03/23/25 17:52 Ondansetron Hcl 4 Mg/2 Ml Vial IVPUSH 03/23/25 17:41 4 mg ONCE ONE Administration Discharge Plan Discharge Clinical Impression: Diverticulitis Patient Disposition: Home, Self-Care Instructions: Diverticulitis (DC) Prescriptions: New amoxicillin-pot clavulanate 875-125 mg tablet 1 tab PO BID 7 Days Qty: 14 0RF ondansetron 4 mg tablet,disintegrating 4 mg PO TID PRN (Reason: nausea and vomiting) 5 Days Qty: 10 0RF No Action (DME) recliner See Rx Instructions .Route .MEDSUPPLY Qty: 1 0RF Rx Instructions: As directed simvastatin 20 mg tablet 20 mg PO BEDTIME Qty: 90 1RF albuterol sulfate 2.5 mg /3 mL (0.083 %) solution for nebulization 2.5 mg inhalation Q6H PRN (Reason: shortness of breath or wheezing) Qty: 90 0RF (DME) nebulizers [Aeroneb Go Nebulizer] Mis See Rx Instructions .Route Qty: 1 0RF Rx Instructions: As directed alendronate 70 mg tablet 70 mg PO QWEEK 84 Days Qty: 12 2RF Rx Instructions: Take once a week on an empty stomach in the morning. Drinks lots of water. Sit upright for 30 minutes. [place] label. (DME) incontinence pad, liner, disp Pad See Rx Instructions .Route Qty: 120 11RF Rx Instructions: Use 1 pad 6 times a day enalapril maleate 20 mg tablet 20 mg PO DAILY 90 Days Qty: 90 0RF (DME) underpads [Bed Underpads] Pad See Rx Instructions .Route Qty: 100 3RF Rx Instructions: Use 1 pad once a day (DME) wet wipes with no smell See Rx Instructions .Route .MEDSUPPLY Qty: 200 11RF Rx Instructions: As directed albuterol sulfate 90 mcg/actuation HFA aerosol inhaler 2 puff inhalation Q4-6H PRN (Reason: shortness of breath or wheezing) Qty: 6.7 0RF (DME) Grab bar Misc See Rx Instructions .Route Qty: 1 0RF Rx Instructions: As directed celecoxib [Celebrex] 200 mg capsule 200 mg PO BID 30 Days Qty: 60 3RF esomeprazole magnesium 20 mg capsule,delayed release(DR/EC) 20 mg PO DAILY Qty: 90 0RF fluticasone propionate [Flonase Allergy Relief] 50 mcg/actuation spray,suspension 1 spray intranasal DAILY Qty: 16 6RF Rx Instructions: administer into each nostril Referrals: Renetta Sutherland MD [Primary Care Provider, Internal Medicine] - 03/27/25 Interventions: ED Discharge Assessment Last Done: 03/23/25 20:57 Discharge Date/Time: 03/23/25 20:57 Print Language: [place]
[2025-03-23 17:56] VITALS: BP 131/89; PULSE 80; RESP 16; O2SAT 99
[2025-03-23] MEDS: iohexoL 350 MG/ML 100 ML INFUS..BTL IV ×2 (18:33→18:55)
[2025-03-23] MEDS: metroNIDAZOLE/NS 500 MG/100 ML PIGGYBACK 100 MG IV (19:54)
[2025-03-23 20:41] VITALS: BP 125/55; PULSE 82; RESP 16; TEMP 37.3; O2SAT 95
[2025-03-23 20:57] VITALS: BP 125/55; PULSE 82; RESP 16; TEMP 37.3; O2SAT 95
== END 2025-03-23 20:57 | disposition home or self-care (01) ==
PROVIDERS: Physician Assistant Medical; Emergency Provider Emergency Medicine Emergency Medical Services; PCP Internal Medicine
DX: K57.32 Diverticulitis of large intestine without perforation or abscess without bleeding (principal); R10.32 Left lower quadrant pain; Z87.891 Personal history of nicotine dependence; Z90.710 Acquired absence of both cervix and uterus; Z79.899 Other long term (current) drug therapy
CPT/HCPCS: 36415; 74177; 80048; 80076; 81003; 83690; 83735; 85025; 96361; 96365; 96368; 96375; 99284; 99285; J0696; J1171; J1836; J2405; Q9967

== ENCOUNTER → 2025-03-23 17:40 | Outpatient (BNV) | payer OTHER, SELFPAY | PROVIDERS: Emergency Provider Emergency Medicine Emergency Medical Services; PCP Internal Medicine; Visit Provider Radiology Diagnostic Radiology | DX: K57.92 Diverticulitis of intestine, part unspecified, without perforation or abscess without bleeding (principal) | CPT/HCPCS: 74177 ==